=== PATIENT | female | born 1970 | race Caucasian/White ===

== ENCOUNTER → 2020-04-27 | Outpatient (CLI) | payer OTHER ==
[2020-04-27 12:42] VITALS: BP 97/65; PULSE 93; RESP 16
--- NOTE | 2020-04-28 14:39 | P.PAINCN ---
History of Present Illness - Reason for Consult Consult date: 04/27/20 - Chief Complaint Neck pain, bilateral hand numbness - History of Present Illness Mary is a 49-year-old female who presents to the [facility] pain clinic as a new patient with a chief complaint of neck pain and numbness and tingling in her arms bilaterally. She's noted the symptoms for about one year and had been progressing. She does not recall a mechanism of injury. She states any activity with her arms causes them to go numb from her shoulder all the way down to her hands and no specific pattern. She also has endorsed some gait disturbances over the past couple months not severe but noticeable. She has not been evaluated by another pain physician or surgeon for this issue. She has complaints of neck pain as well with rotation both left and right and with extension and flexion. She states that flexion or extension can elicit numbness and tingling down the respective arm. She been having difficulty with sleep waking up in the middle night with numbness in one or both arms. VAS varies from 2-8 out of 10 in severity depending on activity level. She describes it as a frequent with varying intensity throbbing, aching, sharp pain in her neck with numbness tingling and burning down her arms bilaterally. Any activity makes it worse or as rest makes it better. She's had difficulty with ADLs, unable to brush her teeth or do her hair or put makeup on without her arm going numb. She denies any bowel or bladder incontinence. Review of Systems Review of Systems 1. Constitutional: No chills , no fever , no night sweats , no change of appetite, no lethargy 2. Ears: No ear ache, no ear discharge , no change in hearing 3. Nose, Mouth ,Throat; No bleeding gums, no sore throat , no epistaxis , no hoarseness , no voice change 4. Cardiovascular: Denies chest pain, no palpitation , no paroxysmal nocturnal dyspnea , no leg edema 5. Respiratory: Denies cough , no dyspnea , no hemoptysis , no sleep apnea, no wheezing 6. Gastrointestinal: No abdominal pain , no bloating , no change in bowel habits , no coffee-ground emesis , No melena , no jaundice , no nausea , no vomiting 7. Genitourinary: No hematuria , no discharge 8. Musculoskeletal: As per HPI 9. Neurological: No ataxia , no aphasia ,no balance difficulties, no change in visions , no change in speech , no tremor . 10. Psychatric: depression , no suicidal ideation, 11. Hematologic: No easy bleeding, no easy brusing. 12. Integumentary: No brttle nails, no change hair , no hirsutism no depigmentation , no foot/leg ulcers . Medications and Allergies Home Medications Medication Instructions Recorded Confirmed Type ARIPiprazole [Abilify] 5 mg PO HS 04/27/20 04/27/20 History Bisacodyl 5 mg PO DAILY 04/27/20 04/27/20 History Col-Rite 04/27/20 History Cyclobenzaprine [Flexeril] 5 mg PO BID 04/27/20 04/27/20 History Dicyclomine [Bentyl] 10 mg PO BID 04/27/20 04/27/20 History Estradiol 0.5 mg PO DAILY 04/27/20 04/27/20 History Folic Acid 1 mg PO DAILY 04/27/20 04/27/20 History Gabapentin [Neurontin] 300 mg PO TID 04/27/20 04/27/20 History Ibuprofen [Motrin] 600 mg PO Q8HR PRN 04/27/20 04/27/20 History Lactulose 20 gm PO DAILY 04/27/20 04/27/20 History Levothyroxine Sodium [Synthroid] 75 mcg PO DAILY 04/27/20 04/27/20 History Omeprazole [PriLOSEC] 20 mg PO AC-BID 04/27/20 04/27/20 History Topiramate 50 mg PO DAILY 04/27/20 04/27/20 History buPROPion SR [Wellbutrin Sr] 100 mg PO TID 04/27/20 04/27/20 History lamoTRIgine 200 mg PO DAILY 04/27/20 04/27/20 History medroxyPROGESTERone [Provera] 2.5 mg PO DAILY 04/27/20 04/27/20 History traZODone HCL 150 mg PO HS 04/27/20 04/27/20 History Allergies Allergy/AdvReac Type Severity Reaction Status Date / Time bee venom protein (honey bee) Allergy Anaphylaxis Verified 04/27/20 12:25 methylphenidate Allergy Rash/Hives Verified 04/27/20 12:23 [From Ritalin] Physical Exam Vitals: Intake and Output 04/26/20 04/27/20 04/27/20 22:59 06:59 14:59 Other: Weight 55.792 kg Gen: WDWN, AAOx3, NAD HEENT: NCAT, EOMI, hearing grossly normal Pulm: resp unlabored Cvs: RRR, no peripheral edema Neck: supple, trachea midline ROM in flexion cervical spine: Limited secondary to pain ROM in extension cervical spine: Omitted secondary to pain Cervical paravertebral tenderness: Mild tenderness to palpation bilateral cervical spine Cervical Facet tenderness: + Spurling's: Positive bilateral with compression + Blackwood on the right ROM in flexion lumbar spine: Preserved flexion ROM in extension lumbar spine: Preserved extension Lumbar paravertebral tenderness: Negative Facet loading: + Bilateral SI joint tenderness: Negative Dewayne's test: negative Straight leg raise: negative Neuro: Muscle strength in upper or lower extremity's are preserved 5 out of 5 in his tricep, bicep deltoid, wrist flexion and extension. Quadriceps dorsiflexion plantarflexion are preserved in the lower extremity's. Reflexes are 1 at the brachioradialis and biceps. 1+ bilateral patella. Psychiatric: Appropriate mood and affect, alexandre signs negative Gait: Normal gait, patient transitions easily, no assist device required. Results Results: MRI cervical spine: 1. Foraminal disc herniations bilaterally at C7-T1 as well as facet hypertrophy and arthropathy. Leads to moderate to severe bilateral neural foraminal narrowing. 2. Small disc herniation is noted at C2-C3, C3-C4. No neural foraminal stenosis or spinal canal stenosis noted at that level. 3. Degenerative disc disease at C4 5. 4. Altered level malalignment with grade 1 anterior listhesis at C3-C4 and retrolisthesis at C5-C6. Assessment and Plan Assessment: 1. Cervical spondylosis with myelopathy 2. Cervical degenerative disc disease 3. Cervical anteriolisthesis at C3-C4 Plan: 1. Medication: No medications prescribed today. 2. Investigation: MRI cervical spine reviewed in detail with patient. All questions answered and diagnosis discussed in detail as well as treatment options. 3. Intervention: We discussed performing cervical epidural steroid injections targeting the C7-T1 interspace where her pathology is most severe. Discussed risks and benefits of the procedure in detail which include but not limited to infection, hematoma the epidural space, and increased pain. 4. Disposition: Patient return to clinic for cervical epidural steroid injection. I recommend patient have 2 as she will undergo physical therapy as well. I also referred her to Dr. Isaias Stratton for evaluation surgical recommendations. I discussed with her that she likely will require surgical decompression if she is myelopathic. I also provided her with a prescription for soft collar to wear at night to help maintain traction while sleeping. Time with Patient: Greater than 30 PQRS Measure Charge Sheet Home Medications: Ambulatory Orders ARIPiprazole [Abilify] 5 mg PO HS 04/27/20 Bisacodyl 5 mg PO DAILY 04/27/20 Col-Rite 04/27/20 Cyclobenzaprine [Flexeril] 5 mg PO BID 04/27/20 Dicyclomine [Bentyl] 10 mg PO BID 04/27/20 Estradiol 0.5 mg PO DAILY 04/27/20 Folic Acid 1 mg PO DAILY 04/27/20 Gabapentin [Neurontin] 300 mg PO TID 04/27/20 Ibuprofen [Motrin] 600 mg PO Q8HR PRN 04/27/20 Lactulose 20 gm PO DAILY 04/27/20 Levothyroxine Sodium [Synthroid] 75 mcg PO DAILY 04/27/20 Omeprazole [PriLOSEC] 20 mg PO AC-BID 04/27/20 Topiramate 50 mg PO DAILY 04/27/20 buPROPion SR [Wellbutrin Sr] 100 mg PO TID 04/27/20 lamoTRIgine 200 mg PO DAILY 04/27/20 medroxyPROGESTERone [Provera] 2.5 mg PO DAILY 04/27/20 traZODone HCL 150 mg PO HS 04/27/20
== END | disposition home or self-care (01) ==
LOC: PNWHC3 12:08
PROVIDERS: ATTEND Anesthesiology
DX: M43.12 Spondylolisthesis, cervical region (principal); M50.00 Cervical disc disorder with myelopathy, unspecified cervical region; M47.12 Other spondylosis with myelopathy, cervical region; Z79.890 Hormone replacement therapy; Z79.1 Long term (current) use of non-steroidal anti-inflammatories (NSAID); Z79.899 Other long term (current) drug therapy; Z91.030 Bee allergy status; Z88.8 Allergy status to other drugs, medicaments and biological substances
CPT/HCPCS: 99211

== ENCOUNTER 2020-05-19 07:04 | Day surgery (SDC) | payer OTHER ==
[2020-05-17 14:14] VITALS: BMI 22.6
[~2020-05-19 07:04] MED LIST: LACTATED RINGERS 1,000 ML IV SCH
[2020-05-19 07:27] VITALS: RESP 16; TEMP 96.9
[2020-05-19] MEDS ORDERED: LIDOCAINE 1% (10MG/ML) FOR IV START INTRADERMA ONE (07:28)
[2020-05-19] MEDS ORDERED: DEXAMETHASONE SOD PHOSPHATE 10 MG/ML 1 ML VIAL ONE (08:09)
[2020-05-19] MEDS ORDERED: MIDAZOLAM 2 MG/2 ML VIAL ONE (08:09)
[2020-05-19] MEDS ORDERED: fentaNYL (PF) 50 MCG/ML 2 ML AMP ONE (08:09)
[2020-05-19] MEDS ORDERED: IOPAMIDOL M200 10 ML VIAL ONE (08:09)
--- NOTE | 2020-05-19 08:28 | P.PCN ---
Date of Procedure: 05/19/20 Procedure(s) Performed: Diagnosis: Cervical radiculopathy Cervical degenerative disc disease POSTOPERATIVE DIAGNOSIS: Diagnoses: Cervical radiculopathy Cervical degenerative disc disease PROCEDURE Cervical Epidural steroid injection under fluoroscopic guidance at the C7-T1 interspace using right paramedian approach Cervical epidurogram ANESTHESIA: Local with 1% lidocaine 3 ml and IV sedation with Versed and fentanyl, sedation time 8 minutes Fluoroscopy was used for the procedure and images were saved in the radiology portion of the chart. EBL: Minimal PROCEDURE INDICATION: The patient presents with cervical radicular symptoms unresponsive to conservative treatment. This is the first cervical epidural steroid injection. PROCEDURE DESCRIPTION / TECHNIQUE: The patient was seen and identified in the preoperative area. Risks, benefits, complications including but not limited to infections ,bleeding ,allergic reaction to the medications ,nerve damage and incomplete pain relief, and alternatives were discussed with the patient. The patient agreed to proceed with the procedure and signed the consent. IV was started, and vital signs were stable. Patient was taken to the OR and time out was completed. The patient was placed in the prone position on procedure table and a pillow was placed under the chest area. The cervical area was prepped and draped in the usual sterile fashion. Conscious sedation was used during the procedure to decrease patients anxiety. Vital signs was monitored during the entire procedure. Using anterior-posterior fluoroscopy, the C7-T1 interlaminar space was identified and the skin over this site was marked and then infiltrated with 1% lidocaine subcutaneously. Subsequently, a 20-gauge Tuohy epidural needle was inserted and advanced toward the epidural space using the loss of resistance technique and guided by AP and 50 oblique fluoroscopy. The correct needle position in the epidural space was verified. After negative aspiration for blood and CSF and in the absence of paresthesias, Isovue 200 2 mL's was injected under live fluoroscopy with good epidural spread. After negative aspiration, a 5 ml mixture containing 10 mg of dexamethasone, 3 mL of preservative free normal saline and 1 mL of 1% lidocaine was injected. Needle was withdrawn intact, skin was cleansed, and bandages were applied. COMPLICATIONS: None DISPOSITION / PLANS: The patient was placed in a supine position and transferred to the recovery area in a stable condition for observation. There was no evidence of lower extremity motor or sensory deficit after the procedure. Patient was discharged from the recovery room after meeting discharge criteria. Home discharge instructions were given to the patient by the staff. The patient will be scheduled a repeat procedure in 4 weeks.
[2020-05-19 08:42] VITALS: PULSE 74
[2020-05-19 09:01] VITALS: BP 105/72
--- NOTE | 2020-05-19 14:36 | FL ---
Fluoroscopy HISTORY: Pain 9 seconds fluoroscopy time supplied to the referring clinician. 3 intraoperative C-arm images docume nt the procedure. See dictated report from anesthesia.
== END 2020-05-19 09:02 | disposition home or self-care (01) ==
LOC: ORPAIN 07:04
PROVIDERS: ATTEND Anesthesiology
DX: M50.10 Cervical disc disorder with radiculopathy, unspecified cervical region (principal); Z88.8 Allergy status to other drugs, medicaments and biological substances
CPT/HCPCS: 81025; 62321; J2250; J1100; J3010; Q9966

== ENCOUNTER 2020-06-16 07:52 | Day surgery (SDC) | payer OTHER ==
[2020-06-14 11:25] VITALS: BMI 22.6
[2020-06-16 08:14] VITALS: TEMP 99
[2020-06-16] MEDS ORDERED: DEXAMETHASONE SOD PHOSPHATE 10 MG/ML 1 ML VIAL ONE (08:42)
[2020-06-16] MEDS ORDERED: fentaNYL (PF) 50 MCG/ML 2 ML AMP ONE (08:42)
[2020-06-16] MEDS ORDERED: IOPAMIDOL M200 10 ML VIAL ONE (08:42)
[2020-06-16] MEDS ORDERED: MIDAZOLAM 2 MG/2 ML VIAL ONE (08:42)
--- NOTE | 2020-06-16 09:00 | P.PCN ---
Date of Procedure: 06/16/20 Procedure(s) Performed: Diagnosis: Cervical radiculopathy Cervical degenerative disc disease POSTOPERATIVE DIAGNOSIS: Diagnoses: Cervical radiculopathy Cervical degenerative disc disease PROCEDURE Cervical Epidural steroid injection under fluoroscopic guidance at the C7-T1 interspace using right paramedian approach Cervical epidurogram ANESTHESIA: Local with 1% lidocaine 3 ml and IV sedation with Versed and fentanyl, sedation time 10 minutes Fluoroscopy was used for the procedure and images were saved in the radiology portion of the chart. EBL: Minimal PROCEDURE INDICATION: The patient presents with cervical radicular symptoms unresponsive to conservative treatment. This is the second cervical epidural steroid injection. PROCEDURE DESCRIPTION / TECHNIQUE: The patient was seen and identified in the preoperative area. Risks, benefits, complications including but not limited to infections ,bleeding ,allergic reaction to the medications ,nerve damage and incomplete pain relief, and alternatives were discussed with the patient. The patient agreed to proceed with the procedure and signed the consent. IV was started, and vital signs were stable. Patient was taken to the OR and time out was completed. The patient was placed in the prone position on procedure table and a pillow was placed under the chest area. The cervical area was prepped and draped in the usual sterile fashion. Conscious sedation was used during the procedure to decrease patients anxiety. Vital signs was monitored during the entire procedure. Using anterior-posterior fluoroscopy, the C7-T1 interlaminar space was identified and the skin over this site was marked and then infiltrated with 1% l idocaine subcutaneously. Subsequently, a 20-gauge Tuohy epidural needle was inserted and advanced toward the epidural space using the loss of resistance technique and guided by AP and 50 oblique fluoroscopy. The correct needle position in the epidural space was verified. After negative aspiration for blood and CSF and in the absence of paresthesias, Isovue 200 2 mL's was injected under live fluoroscopy with good epidural spread. After negative aspiration, a 5 ml mixture containing 10 mg of dexamethasone, 3 mL of preservative free normal saline and 1 mL of 1% lidocaine was injected. Needle was withdrawn intact, skin was cleansed, and bandages were applied. COMPLICATIONS: None DISPOSITION / PLANS: The patient was placed in a supine position and transferred to the recovery area in a stable condition for observation. There was no evidence of lower extremity motor or sensory deficit after the procedure. Patient was discharged from the recovery room after meeting discharge criteria. Home discharge instructions were given to the patient by the staff. The patient will be scheduled a follow-up in the clinic in 4 weeks.
[2020-06-16] MEDS ORDERED: IV FLUID CONTINUATION 600 ML IV ONE (09:02)
[2020-06-16 09:16] VITALS: BP 117/77; PULSE 68; RESP 16
--- NOTE | 2020-06-16 15:04 | FL ---
EXAMINATION TYPE: FL guided pain mgmt statistic DATE OF EXAM: 06/16/2020 CLINICAL HISTORY: Cervical pain injection TECHNIQUE: Fluoroscopy. COMPARISON: None. FINDINGS: Fluoroscopic guidance was provided during procedure performed by Dr. Tse. A total of 5 se conds of fluoroscopic time was utilized during the procedure and 3 spot images was acquired. Please s ee operative report for additional details. IMPRESSION: As Above.
== END 2020-06-16 09:37 | disposition home or self-care (01) ==
LOC: ORPAIN 07:52
PROVIDERS: ATTEND Anesthesiology
DX: M50.10 Cervical disc disorder with radiculopathy, unspecified cervical region (principal); Z88.8 Allergy status to other drugs, medicaments and biological substances
CPT/HCPCS: 81025; 62321; J2250; J1100; J3010; Q9966; 99152

== ENCOUNTER → 2020-07-06 | Outpatient (CLI) | payer OTHER ==
[2020-07-06 10:08] VITALS: BP 113/81; PULSE 78; RESP 16; TEMP 98.1
--- NOTE | 2020-07-06 10:35 | P.PAINPG ---
Subjective Progress Note Date: 07/06/20 Mary is a 49-year-old female who presents to the [facility] pain clinic as a follow up for neck pain and numbness and tingling in her arms bilaterally. At her initial visit, we felt that her pain could be mediated from by cervical canal stenosis with nerve root impingement. We performed cervical ILESI C7-T1 x2 on 05/19 and 06/16/2020. We also referred her to see Dr. Isaias Stratton as well as PT. We were concerned that she was having myelopathy hence the surgical referral. She is here for follow up today. Patient says that her recent cervical epidural steroid injections were not very helpful. They only gave her about 10% relief. Her chief complaint is neck pain with occasional numbness and tingling in her arms bilaterally. However at this visit she is more focused on the fact that she is having neck pain stiffness and pain in her mid back on the right side. She does notice that she has some weakness in her arms. She is still scheduled to see neurosurgery and has an EMG scheduled for next week. She is currently doing physical therapy as well as she thinks is actually providing some benefit for her. Pain is currently an 8 out of 10. Described as intense throbbing aching and sharp with numbness and pain down her bilateral arms. Any activity makes it worse and rest makes it better She denies any bowel or bladder incontinence. Mostly her symptomology is described as stiffness and pain in the right cervical and thoracic musculature Review of Systems Review of Systems 1. Constitutional: No chills , no fever , no night sweats , no change of appetite, no lethargy 2. Ears: No ear ache, no ear discharge , no change in hearing 3. Nose, Mouth ,Throat; No bleeding gums, no sore throat , no epistaxis , no hoarseness , no voice change 4. Cardiovascular: Denies chest pain, no palpitation , no paroxysmal nocturnal dyspnea , no leg edema 5. Respiratory: Denies cough , no dyspnea , no hemoptysis , no sleep apnea, no wheezing 6. Gastrointestinal: No abdominal pain , no bloating , no change in bowel habits , no coffee-ground emesis , No melena , no jaundice , no nausea , no vomiting 7. Genitourinary: No hematuria , no discharge 8. Musculoskeletal: As per HPI 9. Neurological: No ataxia , no aphasia ,no balance difficulties, no change in visions , no change in speech , no tremor . 10. Psychatric: depression , no suicidal ideation, Gen: WDWN, AAOx3, NAD HEENT: NCAT, EOMI, hearing grossly normal Pulm: resp unlabored Cvs: RRR, no peripheral edema Neck: supple, trachea midline ROM in flexion cervical spine: Limited secondary to pain ROM in extension cervical spine: Omitted secondary to pain Cervical paravertebral tenderness: Significant tenderness and multiple trigger points of the right cervical paraspinal musculature, rhomboids, trapezius, and thoracic paraspinal muscles with radiation. Cervical Facet tenderness: + Spurling's: Positive bilateral with compression + Blackwood on the right Neuro: Muscle strength in upper or lower extremity's are preserved 5 out of 5 in his tricep, bicep deltoid, wrist flexion and extension. Quadriceps dorsiflexion plantarflexion are preserved in the lower extremity's. Reflexes are 1 at the brachioradialis and biceps. 1+ bilateral patella. Psychiatric: Appropriate mood and affect, alexandre signs negative Gait: Normal gait, patient transitions easily, no assist device required. Results Results: MRI cervical spine: 1. Foraminal disc herniations bilaterally at C7-T1 as well as facet hypertrophy and arthropathy. Leads to moderate to severe bilateral neural foraminal narrowing. 2. Small disc herniation is noted at C2-C3, C3-C4. No neural foraminal stenosis or spinal canal stenosis noted at that level. 3. Degenerative disc disease at C4 5. 4. Altered level malalignment with grade 1 anterior listhesis at C3-C4 and retrolisthesis at C5-C6. Assessment and Plan Assessment: 1. Cervical spondylosis with myelopathy 2. Cervical degenerative disc disease 3. Cervical anteriolisthesis at C3-C4 4. Cervical myofasical pain Plan: 1. Medication: No medications prescribed today. 2. Investigation: MRI cervical spine reviewed in detail with patient. All questions answered and diagnosis discussed in detail as well as treatment options. 3. Intervention: We will perform right-sided trigger point injections to cervical paraspinals, rhomboids, trapezius, thoracic paraspinal muscles. She does have noted trigger points on her physical exam with radiation upon pa lpation. If these do not work we can consider cervical medial branch workup in the future, however educated the patient given her MRI findings and symptoms this might not be as helpful. 4. Disposition: Patient will return for trigger point injections the right side as stated above. She is continuing to do physical therapy as well. I refilled her gabapentin as well today. She will see neurosurgery and have her EMG. She is continuing to wear her soft collar at night which is helping. I also educated her that she can take her Flexeril 10 mg at night rather than 5 and maybe this might provide some benefit. PQRS Measure Charge Sheet Measure #226: Tobacco Use: Screen & Cessation Intervention: Pt not a tobacco user Measure #47: Advance Care Plan: Advance care planning discussed & documented, pt chose/unable to give Measure #131: Pain Assessment & Follow-up: Pain positive & plan documented, F ollow-up scheduled Measure #431: Unhealthy Alcohol Use Preventative Care & Scrn: Patient not identified as an unhealthy alcohol user PQRS Narrative: Smoking Status Current every day smoker Hx Alcohol Use (MH) Yes: IN THE PAST Home Medications: Ambulatory Orders ARIPiprazole [Abilify] 10 mg PO HS 04/27/20 Bisacodyl 5 mg PO DAILY 04/27/20 Cyclobenzaprine [Flexeril] 5 mg PO BID 04/27/20 Dicyclomine [Bentyl] 10 mg PO BID 04/27/20 Estradiol 0.5 mg PO DAILY 04/27/20 Folic Acid 1 mg PO DAILY 04/27/20 Ibuprofen [Motrin] 600 mg PO Q8HR PRN 04/27/20 Lactulose 20 gm PO DAILY 04/27/20 Levothyroxine Sodium [Synthroid] 75 mcg PO DAILY 04/27/20 Omeprazole [PriLOSEC] 20 mg PO AC-BID 04/27/20 Topiramate 50 mg PO DAILY 04/27/20 buPROPion SR [Wellbutrin Sr] 150 mg PO TID 04/27/20 lamoTRIgine 200 mg PO DAILY 04/27/20 medroxyPROGESTERone [Provera] 2.5 mg PO DAILY 04/27/20 traZODone HCL 150 mg PO HS 04/27/20 Docusate [Colace] 100 mg PO DAILY 05/17/20 Gabapentin [Neurontin] 300 mg PO TID #90 cap 07/06/20 Controlled Substance Measures - Controlled Substance Measures Is patient prescribed a controlled substance at discharge?: No
== END | disposition home or self-care (01) ==
LOC: PNWHC3 09:45
PROVIDERS: ATTEND Anesthesiology
DX: M43.12 Spondylolisthesis, cervical region (principal); M50.021 Cervical disc disorder at C4-C5 level with myelopathy; M47.12 Other spondylosis with myelopathy, cervical region; M79.18 Myalgia, other site; F17.200 Nicotine dependence, unspecified, uncomplicated; Z79.890 Hormone replacement therapy; Z79.1 Long term (current) use of non-steroidal anti-inflammatories (NSAID); Z79.899 Other long term (current) drug therapy
CPT/HCPCS: 99211

== ENCOUNTER → 2020-09-07 | Outpatient (CLI) | payer OTHER ==
[2020-09-07 11:42] VITALS: BP 108/74; PULSE 74; RESP 18; TEMP 98.1
--- NOTE | 2020-09-07 12:24 | P.PN ---
Subjective Progress Note Date: 09/07/20 Assessment this is a 50 years old female with a chronic history of severe neck pain with radiation to the upper extremity bilaterally associated with numbness and tingling sensation, she is diagnosed with cervical degenerative disc disease , cervical foraminal stenosis, cervical herniated disc disease, cervical spondylosis with cervical facet arthropathy, patient had cervical epidural steroid injections 2 , she had no benefit from it, and she is continued to do physical therapy with minimal improvement, she had no motor or sensory deficit she had no fever or night sweats, no change in the bowel movement or urination, she is currently on Neurontin 300 mg 3 times a day, she had some benefit from this medication and she has no side effect. Objective - Vital Signs Vital signs: Vital Signs Temp 98.1 F 09/07/20 11:38 Pulse 74 09/07/20 11:38 Resp 18 09/07/20 11:38 BP 108/74 09/07/20 11:38 Pulse Ox 99 09/07/20 11:38 - Exam Physical Examinations : -Constitutiona : Cooperative , not in acute distress . -HEENT : nech : supple , no Lymphadenopathy , normal thyroid size . : eyes : no ptosis , no icterus, no photophobia . - neurologic : Cranial nerve II to XII intact , no focal neurological deffecit . -psychatric : alert , oriented X 3 , appropriate affect , intact judgment and insight . -Lymphatic : no Lymphadenopathy . - musculoskeltal : Cervical Spine motor stregnth in the deltoid and biceps, normal right side , normal Left side motor stregnth biceps and the wrist extensors normal right side ,normal left side . motor stregnth in the triceps muscle . normal Right side , normal Left side deep tendon reflexes normal at the biceps , normal at Brachioradialis , normal at triceps. cervical facet loading test= Positive Bilaterally Spurling test= positive bilaterally. Neck distraction test= positive bilaterally. Martin sign= positive bilaterally. Lumber spine moter stegnth lower extremities ,thigh and legs 5/5 Right side , 5/5 Left side Assessment and Plan Plan: Assessment and plan= 1-cervical disc herniation. 2-cervical foraminal stenosis. 3-cervical degenerative disc disease. 4-cervical spondylosis or cervical facet arthropathy without myelopathy. Patient had no benefit from cervical epidural steroid injections 2. Patient could be good candidate for diagnostic medial branch block cervical area at C4 ,C 5 , C 6 and possible RFA She is referred for evaluation by spine surgeon Prescriptions refilled for Neurontin 300 mg 3 times a day dispense 90 with 2 refills. - PQRS measures = - Patient's medications are documented in the chart. -Tobacco use is negative and counseling.Given. -Patient's has not received pneumococcal vaccine. -Advanced care planning discussed, patient not eligible. -Opiate contract signed. -Pain positive and follow-up visit/procedure is scheduled. -Patient's blood pressure measured [ 108/74 ] , and documented in the record ,and patient will follow up with the primary care. -Patient's weight was measured and body mass index [ 22] within the normal limits and counseling was done. and patient instructed to follow-up with the primary care physician. -Patient was not identified as an unhealthy alcohol user Time with Patient: Less than 30
== END | disposition home or self-care (01) ==
LOC: PNWHC3 11:13
PROVIDERS: ATTEND Specialist
DX: M48.02 Spinal stenosis, cervical region (principal); M50.20 Other cervical disc displacement, unspecified cervical region; M50.30 Other cervical disc degeneration, unspecified cervical region; M47.812 Spondylosis without myelopathy or radiculopathy, cervical region; Z79.891 Long term (current) use of opiate analgesic; Z79.899 Other long term (current) drug therapy
CPT/HCPCS: 99211

== ENCOUNTER → 2020-09-30 | Day surgery (SDC) | payer OTHER ==
[2020-09-29 08:54] VITALS: BMI 22.6
[~2020-09-30] MED LIST changes: +DEXAMETHASONE SOD PHOSPHATE 10 MG/ML 1 ML VIAL ONE; +IV FLUID CONTINUATION 600 ML IV ONE; +LACTATED RINGERS 1,000 ML IV ONE; +LIDOCAINE 1% (10MG/ML) FOR IV START INTRADERMA ONE; +MIDAZOLAM 2 MG/2 ML VIAL ONE; +ROPIVACAINE 5MG/ML 20ML VIAL ONE
[2020-09-30 07:33] VITALS: TEMP 97.6
--- NOTE | 2020-09-30 08:31 | P.PCN ---
Date of Procedure: 09/30/20 Surgeon: Beatriz Mcallister Pathology: none sent Condition: stable Disposition: PACU Description of Procedure: PREOPERATIVE DIAGNOSIS: Cervical Spondylosis with Facet Arthropathy,without myelopathy POSTOPERATIVE DIAGNOSIS: Cervical Spondylosis Facet Arthropathy, Without myelopathy PROCEDURES: Diagnostic Right C4,5,6 medial branchs block with fluoroscopic guidance ANESTHESIA: Local with 1% lidocaine; IV sedation by anesthesia services EBL: Minimal PROCEDURE INDICATION: The patient with neck pain secondary to cervical arthropathy unresponsive to more conservative treatments. PROCEDURE DESCRIPTION / TECHNIQUE: The patient was seen and identified in the preoperative area. Risks, benefits, complications, and alternatives were discussed with the patient, the patient agreed to proceed with the procedure and signed the consent. IV was started. Vital signs remained stable throughout the procedure. Patient was taken to the OR and time out was completed. The patient was placed in the supine position on the procedure table. . The cervical area was prepped with chloraprep and draped in the usual sterile fashion. Critical pause was taken. Vital signs were closely monitored during the procedure. Conscious sedation was used during the procedure to decrease patients anxiety. Using cross-table lateral fluoroscopy, the center of the trapezoid of C4 , C5,C6 was identified, marked, and localized with 1% lidocaine 1 ml at each level for skin and Sub Q infiltrations . Subsequently, a 25 G 3.5 inch spinal needle was advanced guided by fluoroscopy to the centroid of the trapezoid . Subsequently, 3 ml of preservative-free Bupivacaine 0.5% mixed with Dexamethasone 10 mg and 1 ml of the mixture was injected at each level after negative aspiration for blood and CSF. [place] were then removed intact . COMPLICATIONS: No acute complications. COMMENTS: X-ray images were saved to the C-arm machine DISPOSITION / PLANS: The patient was placed in a supine position and transferred to the recovery area in a stable condition for observation and was discharged from the recovery room after meeting discharge criteria. Home discharge instructions given to the patient by the staff. The patient was reexamined prior to discharge. The patient will schedule a follow up in the clinic in 2-4 weeks
--- NOTE | 2020-09-30 08:42 | FL ---
EXAMINATION TYPE: FL guided pain mgmt statistic DATE OF EXAM: 09/30/2020 HISTORY: Fluoroscopy time 8 seconds of fluoroscopy provided. IMPRESSION: 1. Fluoroscopy time.
[2020-09-30 08:43] VITALS: RESP 17
[2020-09-30 08:54] VITALS: BP 117/62; PULSE 60
== END ==
LOC: ORPAIN 06:58
PROVIDERS: ATTEND Anesthesiology
DX: M47.812 Spondylosis without myelopathy or radiculopathy, cervical region (principal); F17.210 Nicotine dependence, cigarettes, uncomplicated; M19.90 Unspecified osteoarthritis, unspecified site; E07.9 Disorder of thyroid, unspecified; K21.9 Gastro-esophageal reflux disease without esophagitis; Z88.8 Allergy status to other drugs, medicaments and biological substances; Z79.1 Long term (current) use of non-steroidal anti-inflammatories (NSAID); Z79.899 Other long term (current) drug therapy; Z79.890 Hormone replacement therapy
CPT/HCPCS: 81025; 64490; 64491; J2250; J1100; J2795

== ENCOUNTER → 2020-10-18 | Outpatient (CLI) | payer OTHER ==
--- NOTE | 2020-10-18 13:55 | CT ---
EXAMINATION TYPE: CT cervical spine wo con DATE OF EXAM: 10/18/2020 COMPARISON: Outside cervical spine x-ray October 10, 2020. Outside MRI cervical spine March 05, 2020 HISTORY: Cervicalgia CT DLP: 779.50 mGycm. Automated Exposure Control for Dose Reduction was Utilized. TECHNIQUE: CT scan of the cervical spine is obtained without contrast, axial images are obtained, sa gittal and coronal reformatted images are also reviewed. FINDINGS: Cervical spine is visualized in its entirety from C1 through upper thoracic levels, redemon strates reversal of normal cervical curvature centered at C4-C5 level. Prevertebral soft tissue franyd ins within normal limits. The C1-C2 articulation is within normal limits on the coronal images. Vert ebral body heights are maintained. There is grade 1 anterolisthesis of C3 on C4 redemonstrated and gr faith 1 retrolisthesis of C5 on C6 redemonstrated. Moderate disc space narrowing and anterior spurring C4-C5 level. Moderate to severe disc space narrowing and spurring C5-C6 level. Mild to moderate disc space narrowing and spurring C7-T1 level. Axial images show C2-C3 level to appear within normal limits Axial images at C3-C4 level show spondylolisthesis with right-sided uncovertebral facet degenerative change. Patent bilateral neural foramina. Axial images at C4-C5 level show tiny central disc protrusion mildly facing anterior thecal sac on im age 39, patent bilateral neural foramina. Axial images at C5-C6 level show spondylolisthesis with patent bilateral neural foramina and patent s carson canal. Axial images at C6-C7 level are within normal limits. Axial images at C7-T1 level show posterior spur disc complex mildly effacing anterior thecal sac and causing cumx-vd-fedniviw bilateral neural foraminal narrowing due to marginal spurring. Lung apices are clear. Thyroid gland is felt within normal limits. Some scattered prominent but subce ntimeter lymph nodes throughout the neck bilaterally are thought present. Correlate clinically. IMPRESSION: Reversal of normal cervical curvature with multilevel degenerative changes as detailed ab ove.
--- NOTE | 2020-10-18 13:57 | CT ---
EXAMINATION TYPE: CT thoracic spine wo con DATE OF EXAM: 10/18/2020 COMPARISON: None. HISTORY: Thoracic pain CT DLP: 494.90 mGycm Automated exposure control for dose reduction was used. FINDINGS: Coronal images show slight scoliotic curvature in the upper thoracic spine. Sagittal images show sati sfactory alignment. Vertebral body heights and disc space heights are maintained. There is mild multi level anterior and lateral spurring. Spinal canal is grossly preserved. There is broad-based posterio r disc herniation mildly effacing the anterior thecal sac at T6-T7 level sagittal image 25 correspond ing to axial image 51. Remainder thoracic levels show no large disc herniation. Visualized lungs are grossly clear. IMPRESSION: Slight scoliotic curvature with focal disc herniation T6-T7 level.
== END | disposition home or self-care (01) ==
LOC: RADCTMAIN 12:58
PROVIDERS: ATTEND Orthopaedic Surgery
DX: M51.24 Other intervertebral disc displacement, thoracic region (principal); M47.812 Spondylosis without myelopathy or radiculopathy, cervical region; M43.8X2 Other specified deforming dorsopathies, cervical region; M41.84 Other forms of scoliosis, thoracic region
CPT/HCPCS: 72125; 72128

== ENCOUNTER → 2020-11-02 | Outpatient (CLI) | payer OTHER ==
[2020-11-02 11:06] VITALS: BP 102/72; PULSE 81; RESP 16; TEMP 98
--- NOTE | 2020-11-03 11:03 | P.PN ---
Subjective Progress Note Date: 11/02/20 This is a follow-up visit for 50 years old female with a chronic history of severe neck pain with radiation to the upper extremity bilaterally associated with numbness and tingling sensation, she is diagnosed with cervical degenerative disc disease , cervical foraminal stenosis, cervical herniated disc disease, cervical spondylosis with cervical facet arthropathy, patient had cervical epidural steroid injections 2 , she had no benefit from it, and she is continued to do physical therapy with minimal improvement, she had no motor or sensory deficit she had no fever or night sweats, no change in the bowel movement or urination, she is currently on Neurontin 300 mg 3 times a day, she had some benefit from this medication and she has no side effect. A few weeks ago we have done diagnostic medial branch block cervical area on the right side C4, C5, C6 and she'll get good pain relief her pain improved significantly after the block gets more than 75% improvement of her neck Objective - Vital Signs Vital signs: Vital Signs Temp 98.0 F 11/02/20 10:57 Pulse 81 11/02/20 10:57 Resp 16 11/02/20 10:57 BP 102/72 11/02/20 10:57 Pulse Ox 98 11/02/20 10:57 - Exam -Constitutiona : Cooperative , not in acute distress . -HEENT : nech : supple , no Lymphadenopathy , normal thyroid size . : eyes : no ptosis , no icterus, no photophobia . - neurologic : Cranial nerve II to XII intact , no focal neurological deffecit . -psychatric : alert , oriented X 3 , appropriate affect , intact judgment and insight . -Lymphatic : no Lymphadenopathy . - musculoskeltal : Cervical Spine motor stregnth in the deltoid and biceps, normal right side , normal Left side motor stregnth biceps and the wrist extensors normal right side ,normal left side . motor stregnth in the triceps muscle . normal Right side , normal Left side deep tendon reflexes normal at the biceps , normal at Brachioradialis , normal at triceps. cervical facet loading test= Positive Bilaterally Spurling test= positive bilaterally. Neck distraction test= positive bilaterally. Martin sign= positive bilaterally. Lumber spine moter stegnth lower extremities ,thigh and legs 5/5 Right side , 5/5 Left side Assessment and Plan Plan: Assessment and plan= 1-cervical disc herniation. 2-cervical foraminal stenosis. 3-cervical degenerative disc disease. 4-cervical spondylosis or cervical facet arthropathy without myelopathy. Patient had no benefit from cervical epidural steroid injections 2. Patient had good results after diagnostic medial branch block cervical area at C4 ,C 5 , C 6 She'll be scheduled for repeat injection She is referred for evaluation by spine surgeon Prescriptions refilled for Neurontin 300 mg 3 times a day dispense 90 with 2 refills. - PQRS measures = - Patient's medications are documented in the chart. -Tobacco use is negative and counseling.Given. -Patient's has not received pneumococcal vaccine. -Advanced care planning discussed, patient not eligible. -Opiate contract signed. -Pain positive and follow-up visit/procedure is scheduled. -Patient's blood pressure measured [ 102/72 ] , and documented in the record ,and patient will follow up with the primary care. -Patient's weight was measured and body mass index [ 22] within the normal limits and counseling was done. and patient instructed to follow-up with the primary care physician. -Patient was not identified as an unhealthy alcohol user Time with Patient: Less than 30
== END | disposition home or self-care (01) ==
LOC: PNWHC3 10:34
PROVIDERS: ATTEND Specialist
DX: G89.29 Other chronic pain (principal); M48.02 Spinal stenosis, cervical region; M50.20 Other cervical disc displacement, unspecified cervical region; M50.30 Other cervical disc degeneration, unspecified cervical region; M47.812 Spondylosis without myelopathy or radiculopathy, cervical region; Z79.899 Other long term (current) drug therapy
CPT/HCPCS: 99211

== ENCOUNTER → 2020-11-30 | Outpatient (CLI) | payer OTHER ==
[2020-11-30 10:45] VITALS: BP 107/73; PULSE 85; RESP 18; TEMP 98.8
--- NOTE | 2020-11-30 11:00 | P.PN ---
Subjective Progress Note Date: 11/30/20 This is a follow-up visit for 50 years old female with a chronic history of severe neck pain with radiation to the upper extremity bilaterally associated with numbness and tingling sensation, she is diagnosed with cervical degenerative disc disease , cervical foraminal stenosis, cervical herniated disc disease, cervical spondylosis with cervical facet arthropathy, patient had cervical epidural steroid injections 2 , she had no benefit from it, and she is continued to do physical therapy with minimal improvement, she had no motor or sensory deficit she had no fever or night sweats, no change in the bowel movement or urination, she is currently on Neurontin 300 mg 3 times a day, she had some benefit from this medication and she has no side effect. A few weeks ago we have done diagnostic medial branch block cervical area on the right side C4, C5, C6 and she get good pain relief her pain improved significantly after the block gets more than 75% improvement of her neck, she is here today for medication refill Objective - Vital Signs Vital signs: Vital Signs Temp 98.8 F 11/30/20 10:40 Pulse 85 11/30/20 10:40 Resp 18 11/30/20 10:40 BP 107/73 11/30/20 10:40 Pulse Ox 99 11/30/20 10:40 - Exam -Constitutiona : Cooperative , not in acute distress . -HEENT : nech : supple , no Lymphadenopathy , normal thyroid size . : eyes : no ptosis , no icterus, no photophobia . - neurologic : Cranial nerve II to XII intact , no focal neurological deffecit . -psychatric : alert , oriented X 3 , appropriate affect , intact judgment and insight . -Lymphatic : no Lymphadenopathy . - musculoskeltal : Cervical Spine motor stregnth in the deltoid and biceps, normal right side , normal Left side motor stregnth biceps and the wrist extensors normal right side ,normal left side . motor stregnth in the triceps muscle . normal Right side , normal Left side deep tendon reflexes normal at the biceps , normal at Brachioradialis , normal at triceps. cervical facet loading test= Positive Bilaterally Spurling test= positive bilaterally. Neck distraction test= positive bilaterally. Martin sign= positive bilaterally. Lumber spine moter stegnth lower extremities ,thigh and legs 5/5 Right side , 5/5 Left side Assessment and Plan Plan: Assessment and plan= 1-cervical disc herniation. 2-cervical foraminal stenosis. 3-cervical degenerative disc disease. 4-cervical spondylosis or cervical facet arth ropathy without myelopathy. Patient had no benefit from cervical epidural steroid injections 2. Patient had good results after diagnostic medial branch block cervical area at C4 ,C 5 , C 6 She'll be scheduled for repeat injection Prescriptions refilled for Neurontin 300 mg 3 times a day dispense 90 with 1 refills. - PQRS measures = - Patient's medications are documented in the chart. -Tobacco use is negative and counseling.Given. -Patient's has not received pneumococcal vaccine. -Advanced care planning discussed, patient not eligible. -Opiate contract signed. -Pain positive and follow-up visit/procedure is scheduled. -Patient's blood pressure measured [ 107/73 ] , and documented in the record ,and patient will follow up with the primary care. -Patient's weight was measured and body mass index [ 23.2] within the normal limits and counseling was done. and patient instructed to follow-up with the primary care physician. -Patient was not identified as an unhealthy alcohol user Time with Patient: Less than 30 Time with Patient: Less than 30
== END | disposition home or self-care (01) ==
LOC: PNWHC3 10:34
PROVIDERS: ATTEND Specialist
DX: M48.02 Spinal stenosis, cervical region (principal); M50.30 Other cervical disc degeneration, unspecified cervical region; M50.20 Other cervical disc displacement, unspecified cervical region; M47.812 Spondylosis without myelopathy or radiculopathy, cervical region; Z79.899 Other long term (current) drug therapy
CPT/HCPCS: 99211

== ENCOUNTER → 2020-12-06 | Day surgery (SDC) | payer OTHER ==
[2020-12-05 08:39] VITALS: BMI 23.2
[~2020-12-06] MED LIST changes: +IOPAMIDOL M200 10 ML VIAL ONE; +IV FLUID CONTINUATION 1,000 ML IV ONE; -IV FLUID CONTINUATION 600 ML IV ONE; -LACTATED RINGERS 1,000 ML IV SCH; +fentaNYL (PF) 50 MCG/ML 2 ML AMP ONE
[2020-12-06 06:44] VITALS: RESP 16; TEMP 98.4
--- NOTE | 2020-12-06 07:17 | P.PCN ---
Date of Procedure: 12/06/20 Description of Procedure: PREOPERATIVE DIAGNOSIS: Cervical Spondylosis with Facet Arthropathy,without myelopathy POSTOPERATIVE DIAGNOSIS: Cervical Spondylosis Facet Arthropathy, Without myelopathy PROCEDURES: Diagnostic Right C4,5,6 medial branchs block with fluoroscopic guidance #2 ANESTHESIA: Local with 1% lidocaine; IV sedation EBL: Minimal PROCEDURE INDICATION: The patient with neck pain secondary to cervical arthropathy unresponsive to more conservative treatments. PROCEDURE DESCRIPTION / TECHNIQUE: The patient was seen and identified in the preoperative area. Risks, benefits, complications, and alternatives were discussed with the patient, the patient agreed to proceed with the procedure and signed the consent. IV was started. Vital signs remained stable throughout the procedure. Patient was taken to the OR and time out was completed. The patient was placed in the supine position on the procedure table. . The cervical area was prepped with chloraprep and draped in the usual sterile fashion. Critical pause was taken. Vital signs were closely monitored during the procedure. Conscious sedation was used during the procedure to decrease patients anxiety. Using cross-table lateral fluoroscopy, the center of the trapezoid of C4 , C5,C6 was identified, marked, and localized with 1% lidocaine 1 ml at each level for skin and Sub Q infiltrations . Subsequently, a 25 G 3.5 inch spinal needle was advanced guided by fluoroscopy to the centroid of the trapezoid . Subsequently, 3 ml of preservative-free Bupivacaine 0.5% mixed with Dexamethasone 10 mg and 1 ml of the mixture was injected at each level after negative aspiration for blood and CSF. [place] were then removed intact . COMPLICATIONS: No acute complications. COMMENTS: X-ray images were saved to the C-arm machine DISPOSITION / PLANS: The patient was placed in a supine position and transferred to the recovery area in a stable condition for observation and was discharged from the recovery room after meeting discharge criteria. Home discharge instructions given to the patient by the staff. The patient was reexamined prior to discharge. The patient will schedule a follow up in the clinic in 2-4 weeks
[2020-12-06 07:44] VITALS: BP 102/63; PULSE 71
--- NOTE | 2020-12-06 08:59 | FL ---
EXAMINATION TYPE: FL guided pain mgmt statistic DATE OF EXAM: 12/06/2020 HISTORY: Fluoroscopy time 11 seconds of fluoroscopy provided. IMPRESSION: 1. Fluoroscopy time.
== END ==
LOC: ORPAIN 06:00
PROVIDERS: ATTEND Anesthesiology
DX: M47.812 Spondylosis without myelopathy or radiculopathy, cervical region (principal); Z88.8 Allergy status to other drugs, medicaments and biological substances
CPT/HCPCS: 81025; 64490; 64491; J2250; J1100; J3010; Q9966; J2795; 99152

== ENCOUNTER → 2021-02-01 | Outpatient (CLI) | payer OTHER ==
[2021-02-01 10:52] VITALS: BP 105/69; PULSE 74; RESP 18; TEMP 97.9
--- NOTE | 2021-02-01 11:00 | P.PN ---
Subjective Progress Note Date: 02/01/21 This is a follow-up visit for this 50 years old female with a chronic history of severe neck pain with radiation to the upper extremity, associated with numbness and tingling sensation she is diagnosed with cervical degenerative disc disease and cervical spondylosis with cervical facet arthropathy, previously we have done cervical epidural steroid injection she has minimal benefit from it, and later on we did diagnostic medial branch block cervical area, she had some benefit from the first injection then the second diagnostic medial branch block she has no benefit, she reported that her pain was the same before and after the injection, Objective - Vital Signs Vital signs: Vital Signs Temp 97.9 F 02/01/21 10:35 Pulse 74 02/01/21 10:35 Resp 18 02/01/21 10:35 BP 105/69 02/01/21 10:35 Pulse Ox 74 L 02/01/21 10:35 - Exam -Constitutiona : Cooperative , not in acute distress . -HEENT : nech : supple , no Lymphadenopathy , normal th yroid size . : eyes : no ptosis , no icterus, no photophobia . - neurologic : Cranial nerve II to XII intact , no focal neurological deffecit . -psychatric : alert , oriented X 3 , appropriate affect , intact judgment and insight . -Lymphatic : no Lymphadenopathy . - musculoskeltal : Cervical Spine motor stregnth in the deltoid and biceps, normal right side , normal Left side motor stregnth biceps and the wrist extensors normal right side ,normal left side . motor stregnth in the triceps muscle . normal Right side , normal Left side deep tendon reflexes normal at the biceps , normal at Brachioradialis , normal at triceps. cervical facet loading test= Positive Bilaterally Spurling test= positive bilaterally. Neck distraction test= positive jovita aterally. Martin sign= positive bilaterally. Lumber spine moter stegnth lower extremities ,thigh and legs 5/5 Right side , 5/5 Left side Assessment and Plan Plan: Assessment and plan= 1-cervical disc herniation. 2-cervical foraminal stenosis. 3-cervical degenerative disc disease. 4-cervical spondylosis or cervical facet arthropathy without myelopathy. Patient had no benefit from cervical epidural steroid injections 2. Patient had negative results after the diagnostic medial branch block done recently Patient will follow up with spine surgeon for evaluation. Patient will continue to use Neurontin 300 mg 3 times a day prescription refill for 3 months was given - PQRS measures = - Patient's medications are documented in the chart. -Tobacco use is negative and counseling.Given. -Patient's has not received pneumococcal vaccine. -Advanced care planning discussed, patient not eligible. -Opiate contract signed. -Pain positive and follow-up visit/procedure is scheduled. -Patient's blood pressure measured [ 105/69 ] , and documented in the record ,and patient will follow up with the primary care. -Patient's weight was measured and body mass index [ 23.2] within the normal limits and counseling was done. and patient instructed to follow-up with the primary care physician. -Patient was not identified as an unhealthy alcohol user Time with Patient: Less than 30
== END ==
LOC: PNWHC3 10:31
PROVIDERS: ATTEND Specialist
DX: M47.812 Spondylosis without myelopathy or radiculopathy, cervical region (principal); M50.30 Other cervical disc degeneration, unspecified cervical region; M48.02 Spinal stenosis, cervical region; M50.20 Other cervical disc displacement, unspecified cervical region
CPT/HCPCS: 99211

== ENCOUNTER → 2021-04-24 | Outpatient (CLI) | payer OTHER ==
[2021-04-24 10:40] VITALS: BP 111/76; PULSE 75; RESP 18; TEMP 98.6
--- NOTE | 2021-04-24 11:16 | P.PN ---
Subjective Progress Note Date: 04/24/21 This is a follow-up visit for this 50 years old female with a chronic history of severe neck pain with radiation to the upper extremity, associated with numbness and tingling sensation ,she is diagnosed with cervical degenerative disc disease and cervical spondylosis with cervical facet arthropathy, previously we have done cervical epidural steroid injection she has minimal benefit from it, and later on we did diagnostic medial branch block cervical area, she had some benefit from the first injection then the second diagnostic medial branch block she has no benefit, she reported that her pain was the same before and after the injection, patient was referred to Dr. De La Vega and spine surgeon, and he recommended surgery, patient concerned about complication of the surgery, and she is currently on Neurontin 300 mg 3 times a day, she denies any side effects of the medication but continued to have severe numbness in her upper extremity Physical examination -Constitutiona : Cooperative , not in acute distress . -HEENT : nech : supple , no Lymphadenopathy , normal thyroid size . : eyes : no ptosis , no icterus, no photophobia . - neurologic : Cranial nerve II to XII intact , no focal neurological deffecit . -psychatric : alert , oriented X 3 , appropriate affect , intact judgment and insight . -Lymphatic : no Lymphadenopathy . - musculoskeltal : Cervical Spine motor stregnth in the deltoid and biceps, normal right side , normal Left side motor stregnth biceps and the wrist extensors normal right side ,normal left side . motor stregnth in the triceps muscle . normal Right side , normal Left side deep tendon reflexes normal at the biceps , normal at Brachioradialis , normal at triceps. cervical facet loading test= Positive Bilaterally Spurling test= positive bilaterally. Neck distraction test= positive bilaterally. Martin sign= positive bilaterally. Lumber spine moter stegnth lower extremities ,thigh and legs 5/5 Right side , 5/5 Left side Assessment and plan= 1-cervical disc herniation. 2-cervical foraminal stenosis. 3-cervical degenerative disc disease. 4-cervical spondylosis or cervical facet arthropathy without myelopathy. Patient had no benefit from cervical epidural steroid injections 2. Patient had negative results after the diagnostic medial branch block . Patient continue to to have numbness with the current dose of Neurontin 300 mg 3 times a day Patient could benefit from Lyrica 75 mg 3 times a day, (and if Lyrica did not approved by her insurance then we can increase Neurontin to 400 mg 3 times a day Follow-up in 3 months - PQRS measures = - Patient's medications are documented in the chart. -Tobacco use is negative and counseling.Given. -Patient's has not received pneumococcal vaccine. -Advanced care planning discussed, patient not eligible. -Opiate contract signed. -Pain positive and follow-up visit/procedure is scheduled. -Patient's blood pressure measured [ 105/76 ] , and documented in the record ,and patient will follow up with the primary care. -Patient's weight was measured and body mass index [ 23.2] within the normal limits and counseling was done. and patient instructed to follow-up with the primary care physician. -Patient was not identified as an unhealthy alcohol user Objective - Vital Signs Vital signs: Vital Signs Temp 98.6 F 04/24/21 10:37 Pulse 75 04/24/21 10:37 Resp 18 04/24/21 10:37 BP 111/76 04/24/21 10:37 Pulse Ox 98 04/24/21 10:37
== END ==
LOC: PNWHC3 10:29
PROVIDERS: ATTEND Specialist
DX: M50.20 Other cervical disc displacement, unspecified cervical region (principal); M48.02 Spinal stenosis, cervical region; M50.30 Other cervical disc degeneration, unspecified cervical region; M47.812 Spondylosis without myelopathy or radiculopathy, cervical region; F17.200 Nicotine dependence, unspecified, uncomplicated; Z91.030 Bee allergy status; Z88.8 Allergy status to other drugs, medicaments and biological substances
CPT/HCPCS: 80307; G0482; G0463; 99211; 99212

== ENCOUNTER → 2021-07-17 | Outpatient (CLI) | payer OTHER ==
--- NOTE | 2021-07-17 10:49 | P.PAINPG ---
Subjective Progress Note Date: 07/17/21 This is a follow-up visit for this 51 years old female with a chronic history of severe neck pain with radiation to the upper extremity, associated with numbness and tingling sensation ,she is diagnosed with cervical degenerative disc disease and cervical spondylosis with cervical facet arthropathy, previously we have done cervical epidural steroid injection she has minimal benefit from it, and later on we did diagnostic medial branch block cervical area, she had some benefit from the first injection then the second diagnostic medial branch block she has no benefit, she reported that her pain was the same before and after the injection, patient was referred to Dr. De La Vega and spine surgeon, and he recommended surgery, patient concerned about complication of the surgery. In her last visit we had changed her gabapentin from 300 3 times a day to 75 mg of Lyrica 3 times a day. Patient overall is doing alright, she mentions Lyrica is somewhat helpful but is not take away all of her pain. She also takes ibuprofen quite liberally. She has talked about neck surgery, however they want her to stop smoking for 4-6 weeks she has been quite difficult for her. She is interested in increasing the Lyrica and any other options that we might have. Physical examination -Constitutiona : Cooperative , not in acute distress . -HEENT : nech : supple , no Lymphadenopathy , normal thyroid size . : eyes : no ptosis , no icterus, no photophobia . - neurologic : Cranial nerve II to XII intact , no focal neurological deffecit . -psychatric : alert , oriented X 3 , appropriate affect , intact judgment and insight . -Lymphatic : no Lymphadenopathy . - musculoskeltal : Cervical Spine motor stregnth in the deltoid and biceps, normal right side , normal Left side motor stregnth biceps and the wrist extensors normal right side ,normal left side . motor stregnth in the triceps muscle . normal Right side , normal Left side deep tendon reflexes normal at the biceps , normal at Brachioradialis , normal at triceps. cervical facet loading test= Positive Bilaterally Spurling test= positive bilaterally. Neck distraction test= positive bilaterally. Martin sign= positive bilaterally. Lumber spine moter stegnth lower extremities ,thigh and legs 5/5 Right side , 5/5 Left side Assessment and plan= 1-cervical disc herniation. 2-cervical foraminal stenosis. 3-cervical degenerative disc disease. 4-cervical spondylosis or cervical facet arthropathy without myelopathy. Patient had no benefit from cervical epidural steroid injections 2. Patient had negative results after the diagnostic medial branch block . We have increased her Lyrica 150 mg twice a day. I also told her to stop taking her ibuprofen and to try Mobic 15 mg once a day. If the Mobic is not helpful, she can go back to her ibuprofen. Follow-up in 1 month I have spent 34 minutes on patient care today. The time was used to review the medical records including relevant urine studies and prescription history, review of the available imaging, evaluation and examination of the patient, coordination of care with the medical staff and if applicable referring physicians, as well as creation of the medical record. - PQRS measures = - Patient's medications are documented in the chart. -Tobacco use is negative and counseling.Given. -Patient's has not received pneumococcal vaccine. -Advanced care planning discussed, patient not eligible. -Opiate contract signed. -Pain positive and follow-up visit/procedure is scheduled. -Patient's blood pressure measured [ 105/76 ] , and documented in the record ,and patient will follow up with the primary care. -Patient's weight was measured and body mass index [ 23.2] within the normal limits and counseling was done. and patient instructed to follow-up with the primary care physician. PQRS Measure Charge Sheet PQRS Narrative: Smoking Status Current every day smoker Narcotic Agreement Date Signed 07/06/20 Pain Intensity [Neck] 8 Scale Used Numeric (1 - 10) Hx Alcohol Use (MH) Yes: IN THE PAST Home Medications: Ambulatory Orders Cyclobenzaprine [Flexeril] 10 mg PO BID 04/27/20 Dicyclomine [Bentyl] 10 mg PO BID PRN 04/27/20 Estradiol 0.5 mg PO DAILY 04/27/20 Folic Acid 1 mg PO DAILY 04/27/20 Ibuprofen [Motrin] 600 mg PO Q8HR PRN 04/27/20 Lactulose 20 gm PO DAILY 04/27/20 Levothyroxine Sodium [Synthroid] 75 mcg PO DAILY 04/27/20 Omeprazole [PriLOSEC] 20 mg PO AC-BID 04/27/20 lamoTRIgine 150 mg PO BID 04/27/20 medroxyPROGESTERone [Provera] 2.5 mg PO DAILY 04/27/20 Multivit with Calcium,Iron,Min [Women's Multivitamin] 1 each PO DAILY 10/19/20 buPROPion HCL [Wellbutrin XL] 400 mg PO DAILY 04/20/21 Venlafaxine HCl [Effexor] 75 mg PO TID 07/11/21 Meloxicam [Mobic] 15 mg PO DAILY 30 Days #30 tab 07/17/21 Pregabalin [Lyrica] 150 mg PO BID 30 Days #60 capsule 07/17/21 Controlled Substance Measures - Controlled Substance Measures Is patient prescribed a controlled substance at discharge?: Yes When asked, does pt state using other controlled substances?: No If prescribed controlled substance>3 days was MAPS reviewed?: Yes If Rx opioid, was Start Talking consent form obtained?: No If opioid is for acute pain is fill amount 7 days or less?: No Was information provided regarding opioid addiction?: No
[2021-07-17 10:56] VITALS: BP 115/79; PULSE 77; RESP 18; TEMP 98.1
== END | disposition home or self-care (01) ==
LOC: PNWHC3 10:31
PROVIDERS: ATTEND Anesthesiology
DX: M48.02 Spinal stenosis, cervical region (principal); M50.31 Other cervical disc degeneration, high cervical region; M47.892 Other spondylosis, cervical region; M46.92 Unspecified inflammatory spondylopathy, cervical region
CPT/HCPCS: 99211

== ENCOUNTER → 2021-08-14 | Outpatient (CLI) | payer OTHER ==
[2021-08-14 10:55] VITALS: BP 108/71; PULSE 81; RESP 16; TEMP 97.6
--- NOTE | 2021-08-14 10:55 | P.PN ---
Subjective Progress Note Date: 08/14/21 This is a follow-up visit for this 50 years old female with a chronic history of severe neck pain with radiation to the upper extremity, associated with numbness and tingling sensation ,she is diagnosed with cervical degenerative disc disease and cervical spondylosis with cervical facet arthropathy, previously we have done cervical epidural steroid injection she has minimal benefit from it, and later on we did diagnostic medial branch block cervical area, she had some benefit from the first injection then the second diagnostic medial branch block she has no benefit, she reported that her pain was the same before and after the injection, patient was referred to Dr. De La Vega and spine surgeon, and he recommended surgery, patient concerned about complication of the surgery, and she is currently on Lyrica 150 mg 2 times a day, and ibuprofen 600 mg 3 times a day when necessary she denies any side effects of the medication but continued to have severe numbness in her upper extremity Physical examination -Constitutiona : Cooperative , not in acute distress . -HEENT : nech : supple , no Lymphadenopathy , normal thyroid size . : eyes : no ptosis , no icterus, no photophobia . - neurologic : Cranial nerve II to XII intact , no focal neurological deffecit . -psychatric : alert , oriented X 3 , appropriate affect , intact judgment and insight . -Lymphatic : no Lymphadenopathy . - musculoskeltal : Cervical Spine motor stregnth in the deltoid and biceps, normal right side , normal Left side motor stregnth biceps and the wrist extensors normal right side ,normal left side . motor stregnth in the triceps muscle . normal Right side , normal Left side deep tendon reflexes normal at the biceps , normal at Brachioradialis , normal at triceps. cervical facet loading test= Positive Bilaterally Spurling test= positive bilaterally. Neck distraction test= positive bilaterally. Martin sign= positive bilaterally. Lumber spine moter stegnth lower extremities ,thigh and legs 5/5 Right side , 5/5 Left side Assessment and plan= 1-cervical disc herniation. 2-cervical foraminal stenosis. 3-cervical degenerative disc disease. 4-cervical spondylosis or cervical facet arthropathy without myelopathy. Patient had no benefit from cervical epidural steroid injections 2. Patient had negative results after the diagnostic medial branch block . Patient continue to to have numbness with the current dose of Neurontin 300 mg 3 times a day Patient could benefit from Lyrica 150 mg 2 times a day. Follow-up in 3 months - PQRS measures = - Patient's medications are documented in the chart. -Tobacco use is negative and counseling.Given. -Patient's has not received pneumococcal vaccine. -Advanced care planning discussed, patient not eligible. -Opiate contract signed. -Pain positive and follow-up visit/procedure is scheduled. -Patient's blood pressure measured [ 108/71 ] , and documented in the record ,and patient will follow up with the primary care. -Patient's weight was measured and body mass index [ 23.6] within the normal limits and counseling was done. and patient instructed to follow-up with the primary care physician. -Patient was not identified as an unhealthy alcohol user Objective - Vital Signs Vital signs: Intake & Output 08/13/21 08/14/21 08/14/21 18:59 06:59 18:59 Weight 56.699 kg
== END | disposition home or self-care (01) ==
LOC: PNWHC3 10:30
PROVIDERS: ATTEND Specialist
DX: M50.20 Other cervical disc displacement, unspecified cervical region (principal); M50.30 Other cervical disc degeneration, unspecified cervical region; M48.02 Spinal stenosis, cervical region
CPT/HCPCS: 99211

== ENCOUNTER → 2022-04-03 | Outpatient (CLI) | payer OTHER ==
--- NOTE | 2022-04-03 20:46 | MM ---
Reason for Exam: Screening (asymptomatic). Last mammogram was performed 2 year(s) and 1 month(s) ago. Patient History: Menarche at age 12. First Full-Term at age 27. Currently using Estrogen, starting at age 23. Maternal aunt had breast cancer at or over age 50. Mother had breast cancer at or over age 50. Last menstrual period: Risk Values: Rosario 5 year model risk: 2.1%. NCI Lifetime model risk: 18.3%. Film Views: Bilateral CC views were taken. Left MLO views were taken. 2 view(s) taken. Right MLO view was taken. 1 view(s) taken. Prior Study Comparison: 02/03/2020 Bilateral MG screening mammo w CAD - 2, [facility]. 02/24/2020 Left MG work up mamm w CAD LT - 2, [facility]. Tissue Density: The breast tissue is heterogeneously dense. This may lower the sensitivity of mammography. Findings: Analyzed By CAD. Benign vascular calcifications on the left. No significant change from prior exam. Overall Assessment: Benign, BI-RAD 2 Management: Screening Mammogram of both breasts in 1 year. A clinical breast exam by your physician is recommended on an annual basis and results should be correlated with mammographic findings. Also, the patient should continue monthly self breast exams.
== END | disposition home or self-care (01) ==
LOC: CPPFTMAIN 08:24
PROVIDERS: ATTEND Internal Medicine
DX: R06.02 Shortness of breath (principal)
CPT/HCPCS: 77067; 94060; 94726; 94729

== ENCOUNTER 2022-05-11 11:37 | Observation (INO) | payer OTHER ==
[2022-05-11] MEDS ORDERED: DIAZEPAM 5 MG/ML 2 ML INJ IVP STA (12:01)
[2022-05-11] MEDS ORDERED: SODIUM CHLORIDE 0.9% 500 ML 500 ML IV ONE (12:05)
[2022-05-11] MEDS ORDERED: SODIUM CHLORIDE 0.9% 1,000 ML IV ONE (12:05)
[2022-05-11 12:46] LABS: ALT 28 U/L (4-34); AST 53 U/L (14-36); African American GFR (CKD) >90 (>60 ml/min/1.73 sqM); Albumin 4.1 g/dL (3.5-5.0); Alkaline Phosphatase 131 U/L (38-126); Anion Gap 11 mmol/L; Blood Urea Nitrogen 16 mg/dL (7-17); Calcium 8.6 mg/dL (8.4-10.2); Carbon Dioxide 24 mmol/L (22-30); Chloride 104 mmol/L (98-107); Glucose 98 mg/dL (74-99); Lipase 131 U/L (23-300); Magnesium 2.1 mg/dL (1.6-2.3); Non-African American GFR(CKD) 83 (>60 ml/min/1.73 sqM); Potassium 4.5 mmol/L (3.5-5.1); Sodium 139 mmol/L (137-145); Total Bilirubin 0.2 mg/dL (0.2-1.3); Total Protein 6.9 g/dL (6.3-8.2)
--- NOTE | 2022-05-11 12:47 | ED ---
Psych HPI - General Chief Complaint: Psychiatric Symptoms Stated Complaint: Mental Health Time Seen by Provider: 05/11/22 11:45 Source: patient, RN notes reviewed Mode of arrival: wheelchair Limitations: no limitations - History of Present Illness Initial Comments: This a 52-year-old female presents emergency Department chief complaint of depression, suicidal ideation, alcohol abuse. Patient was having erratic behavior when someone reportedly called police. Patient found to be acutely intoxicated stating that she didn't want to harm herself. Patient does not provide much information as she is acutely upset, intoxicated. Denies any localized pain localizing injuries. - Related Data Home Medications Medication Instructions Recorded Confirmed Cyclobenzaprine [Flexeril] 10 mg PO BID 04/27/20 11/02/21 Dicyclomine [Bentyl] 10 mg PO BID PRN 04/27/20 11/02/21 Folic Acid 1 mg PO DAILY 04/27/20 11/02/21 Ibuprofen [Motrin] 600 mg PO Q8HR PRN 04/27/20 11/02/21 Lactulose 20 gm PO DAILY 04/27/20 11/02/21 Levothyroxine Sodium [Synthroid] 75 mcg PO DAILY 04/27/20 11/02/21 Omeprazole [PriLOSEC] 20 mg PO AC-BID 04/27/20 11/02/21 estradioL [Estradiol] 0.5 mg PO DAILY 04/27/20 11/02/21 lamoTRIgine 150 mg PO BID 04/27/20 11/02/21 medroxyPROGESTERone [Provera] 2.5 mg PO DAILY 04/27/20 11/02/21 Multivit with Calcium,Iron,Min 1 each PO DAILY 10/19/20 11/02/21 [Women's Multivitamin] buPROPion HCL [Wellbutrin XL] 400 mg PO DAILY 04/20/21 11/02/21 Venlafaxine HCl [Effexor] 75 mg PO TID 07/11/21 11/02/21 Previous Rx's Medication Instructions Recorded Pregabalin [Lyrica] 150 mg PO BID 30 Days #60 cap 08/14/21 Allergies Allergy/AdvReac Type Severity Reaction Status Date / Time bee venom protein (honey bee) Allergy Anaphylaxis Verified 11/02/21 16:02 methylphenidate Allergy Rash/Hives Verified 11/02/21 16:02 [From Ritalin] Review of Systems ROS Statement: Those systems with pertinent positive or pertinent negative responses have been documented in the HPI. ROS Other: All systems not noted in ROS Statement are negative. Past Medical History Past Medical History: GERD/Reflux, Osteoarthritis (OA), Thyroid Disorder Additional Past Medical History / Comment(s): Difficulty swallowing @ times, Hx. of Helena's Syndrome Hypotension, cervical pain History of Any Multi-Drug Resistant Organisms: None Reported Past Surgical History: Cholecystectomy Additional Past Surgical History / Comment(s): PAIN CLINIC PROCEDURES Past Anesthesia/Blood Transfusion Reactions: No Reported Reaction Past Psychological History: Anxiety, Depression, Panic Disorder Smoking Status: Current every day smoker Past Alcohol Use History: None Reported Past Drug Use History: None Reported - Past Family History Mother Family Medical History: Cancer Additional Family Medical History / Comment(s): breast cancer Father Family Medical History: Cancer General Exam Limitations: no limitations General appearance: alert, in no apparent distress, appears intoxicated Head exam: Present: atraumatic, normocephalic, normal inspection Eye exam: Present: normal appearance, PERRL, EOMI. Absent: scleral icterus, conjunctival injection, periorbital swelling ENT exam: Present: normal exam, mucous membranes moist Neck exam: Present: normal inspection, full ROM. Absent: tenderness, meningismus, lymphadenopathy Respiratory exam: Present: normal lung sounds bilaterally. Absent: respiratory distress, wheezes, rales, rhonchi, stridor Cardiovascular Exam: Present: regular rate, normal rhythm, normal heart sounds. Absent: systolic murmur, diastolic murmur, rubs, gallop, clicks GI/Abdominal exam: Present: soft, normal bowel sounds. Absent: distended, tenderness, guarding, rebound, rigid Neurological exam: Present: alert Psychiatric exam: Present: depressed Skin exam: Present: warm, dry, intact, normal color. Absent: rash Course Vital Signs 05/11/22 11:39 Temperature 97.8 F Pulse Rate 99 Respiratory 18 Rate Blood Pressure 86/41 O2 Sat by Pulse 99 Oximetry Procedures - Restraint - Face to Face Restraint Occurrence 1 Patient's Immediate Situation: Endangers self safety, Endangers staff safety, Violent behavior Patient's Reaction to the Intervention: Uncooperative, Belligerent Patient's Medical & Behavioral Condition: Agitated Need to Continue or Terminate Restraint or Seclusion: Continue Face to Face Eval of Restraint Date: 05/11/22 Face to Face Eval of Restraint Time: 11:45 Medical Decision Making - Medical Decision Making Patient is acutely intoxicated with a blood alcohol over 400. Patient be admitted for observation pending psychiatric evaluation. Patient was placed on CIWA protocol and Librium - Lab Data Result diagrams: 05/11/22 12:11 Lab Results 05/11/22 Range/Units 12:11 Sodium 139 (137-145) mmol/L Potassium 4.5 (3.5-5.1) mmol/L Chloride 104 (98-107) mmol/L Carbon Dioxide 24 (22-30) mmol/L Anion Gap 11 mmol/L BUN 16 (7-17) mg/dL Creatinine 0.82 (0.52-1.04) mg/dL Est GFR (CKD-EPI)AfAm >90 (>60 ml/min/1.73 sqM) Est GFR (CKD-EPI)NonAf 83 (>60 ml/min/1.73 sqM) Glucose 98 (74-99) mg/dL Calcium 8.6 (8.4-10.2) mg/dL Magnesium 2.1 (1.6-2.3) mg/dL Total Bilirubin 0.2 (0.2-1.3) mg/dL AST 53 H (14-36) U/L ALT 28 (4-34) U/L Alkaline Phosphatase 131 H (38-126) U/L Total Protein 6.9 (6.3-8.2) g/dL Albumin 4.1 (3.5-5.0) g/dL Lipase 131 (23-300) U/L Serum Alcohol 439 H* mg/dL Disposition Clinical Impression: Depression, Suicidal ideation, Alcohol abuse, Alcohol intoxication Disposition: ADMITTED IP TO THIS HOSP Referrals: None,Stated [Primary Care Provider] - 1-2 days Time of Disposition: 13:14
[2022-05-11 12:59] LABS: Alcohol 439 mg/dL
[2022-05-11] MEDS ORDERED: chlordiazePOXIDE 25 MG CAP PO PRN ×3 (13:13)
[2022-05-11] MEDS ORDERED: NALOXONE 0.4 MG/ML 1 ML VIAL IV PRN (13:15)
[2022-05-11] MEDS ORDERED: ONDANSETRON 4 MG/2 ML VIAL IVP PRN (13:15)
[2022-05-11 13:19] LABS: Basophils # (A) 0.1 k/uL (0-0.2); Basophils % (A) 2 %; Eosinophils # (A) 0.2 k/uL (0-0.7); Eosinophils % (A) 2 %; HCT 43.8 % (34.0-46.0); HGB 14.3 gm/dL (11.4-16.0); Lymphocytes # (A) 2.2 k/uL (1.0-4.8); Lymphocytes % (A) 32 %; MCH 31.7 pg (25.0-35.0); MCHC 32.6 g/dL (31.0-37.0); MCV 97.2 fL (80.0-100.0); Mean Platelet Volume 6.9; Monocytes # (A) 0.5 k/uL (0-1.0); Monocytes % (A) 7 %; Neutrophils # (A) 3.8 k/uL (1.3-7.7); Neutrophils % (A) 55 %; Platelet Count 380 k/uL (150-450); RBC 4.51 m/uL (3.80-5.40); RDW 12.3 % (11.5-15.5)
--- NOTE | 2022-05-11 13:39 | P.HPIM ---
History of Present Illness H&P Date: 05/11/22 History of Presenting Illness: Patient is a very pleasant 52-year-old female with a past medical history of alcoholism, anxiety, depression, panic disorder, nicotine dependence, crack cocaine use, and marijuana use. She presented to the emergency department in custody of police for psychiatric evaluation secondary to reports of suicidal ideations. Patient was intoxicated and was reportedly initially behaving erratically. Patient has been petitioned by the police for suicidal ideations. She underwent full evaluation in the emergency department. CBC unremarkable. CMP revealed elevated AST of 53 and elevated alkaline phosphatase of 131. Urine drug screen positive for cocaine. Serum alcohol 439. Patient was admitted under our services to be monitored until clinically sober and can be evaluated by psychiatry. Upon evaluation at bedside in the emergency department, patient thrashing around in bed and tearful. Patient reports feeling depressed and having suicidal ideations but currently denies having a plan. Patient reports that she drinks anywhere from a pint to a fifth of vodka daily. She reports long-standing history of alcohol abuse, nicotine dependence, and drug use. Patient reports it has gotten worse over the past few months. Patient reports her last time smoking crack cocaine was 2 days ago. Patient denied having any h eadache, lightheadedness, dizziness, chest pain, palpitations, nausea, vomiting, tremors, or experiencing any numbness/tingling/weakness in her extremities at this time. Review of systems: Pertinent positives and negatives as discussed in HPI, a complete review of systems was performed and all other systems are negative. Physical exam: Vital signs reviewed and stable. General: Nontoxic, no distress and appears stated age. Disheveled appearance. Thin build. Derm: Skin warm and dry, normal coloration for ethnicity. Head: Atraumatic, normocephalic and symmetric. Eyes: EOMs intact, no lid lag, and anicteric sclera Mouth: no lip lesions, mucus membranes moist Cardiovascular: regular rate and rhythm with normal S1S2, no murmur, positive posterior tibial pulses bilaterally, and cap refill < 2 seconds. Lungs: Respirations even, regular, and unlabored on room air. Lungs CTA bilaterally, no rhonchi, no rales, no wheezing, and no accessory muscle usage. Abdominal: soft, nontender to palpation, no guarding, no appreciable organomegaly Ext: ROM intact. No gross muscle atrophy, no edema, no contractures Neuro: Speech clear, face symmetrical and CN II-XII grossly intact with no noted focal neuro deficits Psych: Alert and oriented to person, place, time, and situation. Appropriate and pleasant affect. Assessment and Plan of Care: Alcohol intoxication an active alcoholic Elevated liver enzymes secondary to above -CIWA Protocol with symptom triggered medication management with Librium -Banana bag 1 dose followed by continuous IV hydration. -Thiamine 100 mg twice a day -Multivitamin daily -Folate 1 mg daily -Seizure, fall, aspiration, and elopement precautions in place. -Urine drug screen positive for cocaine -Continued close monitoring of electrolytes and replace as needed. -Telemetry monitoring. Suicidal ideations History of anxiety, depression, and panic disorder -Maintain safety with continuous suicide precautions. -Patient petitioned by the police -Psychiatry consulted -Patient to be reevaluated by psychiatry once clinically sober tomorrow morning with tentative plans for transfer to inpatient psychiatric unit. -Patient to resume home psychiatric medication regimen. Polysubstance abuse -Recommend cessation of marijuana and crack cocaine. Nicotine dependence -Encouragement and education on the importance of smoking cessation and the risks of continued use. -Nicotine patch. The patient is admitted with an anticipated less than 2 midnight stay for evaluation of alcohol intoxication and suicidal ideation CODE STATUS: Full code DVT prophylaxis: Heparin Discussed with: Patient and RN Anticipated discharge date: Tomorrow morning Anticipated discharge place: Discharged to inpatient psychiatric unit A total of 40 minutes was spent on the care of this complex patient more than 50% of the time was spent in counseling and care coordination. Past Medical History Past Medical History: GERD/Reflux, Osteoarthritis (OA), Thyroid Disorder Additional Past Medical History / Comment(s): Difficulty swallowing @ times, Hx. of Helena's Syndrome Hypotension, cervical pain History of Any Multi-Drug Resistant Organisms: None Reported Past Surgical History: Cholecystectomy Additional Past Surgical History / Comment(s): PAIN CLINIC PROCEDURES Past Anesthesia/Blood Transfusion Reactions: No Reported Reaction Past Psychological History: Anxiety, Depression, Panic Disorder Smoking Status: Current every day smoker Past Alcohol Use History: None Reported Past Drug Use History: None Reported - Past Family History Mother Family Medical History: Cancer Additional Family Medical History / Comment(s): breast cancer Father Family Medical History: Cancer Medications and Allergies Home Medications Medication Instructions Recorded Confirmed Type Dicyclomine [Bentyl] 10 mg PO BID PRN 04/27/20 05/11/22 History Folic Acid 1 mg PO DAILY 04/27/20 05/11/22 History Lactulose 20 gm PO DAILY 04/27/20 05/11/22 History Omeprazole [PriLOSEC] 20 mg PO AC-BID 04/27/20 05/11/22 History estradioL [Estradiol] 0.5 mg PO Q48H 04/27/20 05/11/22 History medroxyPROGESTERone [Provera] 2.5 mg PO DAILY 04/27/20 05/11/22 History Albuterol Sulfate [Proair Hfa] 1 puff INHALATION RT-Q4H PRN 05/11/22 05/11/22 History Cyclobenzaprine [Flexeril] 10 mg PO TID PRN 05/11/22 05/11/22 History Docusate [Colace] 100 mg PO DAILY 05/11/22 05/11/22 History Fluticasone Nasal [place] [Flonase 1 - 2 spray EA NOSTRIL DAILY 05/11/22 05/11/22 History Nasal [place]] Levothyroxine Sodium [Synthroid] 100 mcg PO DAILY 05/11/22 05/11/22 History Miconazole 2% Cream [Monistat-Derm] 1 applic TOPICAL BID 05/11/22 05/11/22 History Naproxen [EC-Naprosyn] 500 mg PO BID PRN 05/11/22 05/11/22 History bisacodyL [Bisacodyl] 5 mg PO DAILY PRN 05/11/22 05/11/22 History buPROPion XL [Wellbutrin XL] 450 mg PO DAILY 05/11/22 05/11/22 History busPIRone HCl [Buspar] 10 mg PO BID 05/11/22 05/11/22 History hydrOXYzine pamoate [Vistaril] 50 mg PO HS 05/11/22 05/11/22 History Allergies Allergy/AdvReac Type Severity Reaction Status Date / Time bee venom protein (honey bee) Allergy Anaphylaxis Verified 05/11/22 13:32 methylphenidate Allergy Rash/Hives Verified 05/11/22 13:32 [From Ritalin] Physical Exam Vitals: Vital Signs Temp Pulse Resp BP Pulse Ox 05/11/22 11:39 97.8 F 99 18 86/41 99 Intake and Output 05/10/22 05/11/22 05/11/22 22:59 06:59 14:59 Other: Weight 49.895 kg Results CBC & Chem 7: 05/11/22 12:11 05/11/22 12:11 Labs: Abnormal Lab Results - Last 24 Hours (Table) 05/11/22 Range/Units 12:11 AST 53 H (14-36) U/L Alkaline Phosphatase 131 H (38-126) U/L Serum Alcohol 439 H* mg/dL
[2022-05-11] MEDS ORDERED: bisacodyL 5 MG TABLET.DR PO PRN (13:43)
[2022-05-11] MEDS ORDERED: CYCLOBENZAPRINE 10 MG TAB PO PRN (13:43)
[2022-05-11] MEDS ORDERED: DICYCLOMINE 10 MG CAP PO PRN (13:43)
[2022-05-11] MEDS ORDERED: ALBUTEROL NEBULIZED 2.5 MG/3 ML INHALATION PRN (13:43)
[2022-05-11 13:59] LABS: Amphetamine Screen,Urine Not Detected (NotDetected); Barbiturate Screen,Urine Not Detected (NotDetected); Benzodiazepines Screen,Urine Not Detected (NotDetected); Cocaine Screen,Urine Detected (NotDetected); Methadone Screen, Urine Not Detected (NotDetected); Opiate Screen,Urine Not Detected (NotDetected); Oxycodone Screen, Urine Not Detected (NotDetected); Phencyclidine Screen,Urine Not Detected (NotDetected); Tricyclic Antidepressant,Urine Not Detected (NotDetected); Urn Cannabinoid Scrn Not Detected (NotDetected)
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
[2022-05-11] MEDS: 1: THIAMINE 100 MG, FOLIC ACID 1 MG in SODIUM CHLORIDE 0.9% 1,000 ML 2: SODIUM CHLORIDE IVPB SCH (16:06)
[2022-05-11] MEDS ORDERED: NON FORMULARY DRUG (Omeprazole 20 MG Capsule.Dr) PO SCH (17:30)
[2022-05-11] MEDS: THIAMINE 100 MG TAB PO SCH (20:03)
[2022-05-11] MEDS: hydrOXYzine pamoate 25 MG CAP PO SCH (20:14)
[2022-05-11] MEDS: busPIRone HCl 10 MG TAB PO SCH (20:15)
[2022-05-11] MEDS: chlordiazePOXIDE 25 MG CAP PO PRN (20:22)
[2022-05-11] MEDS: HEPARIN SODIUM,PORCINE/PF 5,000 UNIT/0.5 ML SYRINGE SQ SCH (23:55)
[2022-05-12] MEDS: 1: THIAMINE 100 MG, FOLIC ACID 1 MG in SODIUM CHLORIDE 0.9% 1,000 ML 2: SODIUM CHLORIDE IVPB SCH ×2 (02:08→11:42)
[2022-05-12] MEDS ORDERED: LEVOTHYROXINE 100 MCG TAB PO SCH (06:30)
[2022-05-12 08:12] VITALS: RESP 18
[2022-05-12 08:45] LABS: HCT 37.7 % (37.2-46.3); MCH 30.7 pg (27.0-32.0); MCHC 31.8 g/dL (32.0-37.0); MCV 96.4 fL (80.0-97.0); Mean Platelet Volume 8.9 fL (9.5-12.2); NRBC Per 100 WBC 0 /100 WBCS (0.0-0.0); Platelet Count 281 X 10*3/uL (140-440); RBC 3.91 X 10*6/uL (4.10-5.20); RDW 12.6 % (11.5-14.5); WBC 5.39 X 10*3/uL (4.50-10.00)
[2022-05-12] MEDS: chlordiazePOXIDE 25 MG CAP PO PRN ×2 (08:48→17:02)
[2022-05-12] MEDS: busPIRone HCl 10 MG TAB PO SCH ×2 (08:48→19:34)
[2022-05-12] MEDS: THIAMINE 100 MG TAB PO SCH ×2 (08:48→16:51)
[2022-05-12] MEDS: HEPARIN SODIUM,PORCINE/PF 5,000 UNIT/0.5 ML SYRINGE SQ SCH ×2 (08:49→16:51)
[2022-05-12 09:00] LABS: African American GFR (CKD) 116.3 (60.0-200.0); Albumin 3.5 g/dL (3.8-4.9); Albumin/Globulin Ratio 1.67 (1.60-3.17); Anion Gap 10.8 mmol/L (10.00-18.00); BUN/Creat Ratio 14.57 Ratio (12.00-20.00); Blood Urea Nitrogen 10.2 mg/dL (9.0-27.0); Calcium 8.6 mg/dL (8.7-10.3); Carbon Dioxide 22.2 mmol/L (20.0-27.5); Globulin 2.1 g/dL (1.6-3.3); Magnesium 1.9 mg/dL (1.5-2.4); Non-African American GFR(CKD) 100.3 (60.0-200.0); Total Bilirubin 0.5 mg/dL (0.30-1.20); Total Protein 5.6 g/dL (6.2-8.2)
[2022-05-12] MEDS ORDERED: PANTOPRAZOLE 40 MG/10 ML VIAL IV SCH (09:00)
[2022-05-12] MEDS ORDERED: buPROPion XL 150 MG TAB.ER.24H PO SCH ×2 (09:00)
[2022-05-12] MEDS ORDERED: NICOTINE 14MG/24HR PATCH TRANSDERM SCH (09:00)
[2022-05-12] MEDS ORDERED: FOLIC ACID 1 MG TAB PO SCH (09:00)
[2022-05-12] MEDS ORDERED: MULTIVITAMINS, THERA 1 EACH TAB PO SCH (09:00)
[2022-05-12] MEDS ORDERED: LACTULOSE 20 GM/30 ML CUP PO SCH (09:00)
[2022-05-12] MEDS ORDERED: DOCUSATE 100 MG CAP PO SCH (09:00)
[2022-05-12 15:19] VITALS: BP 144/85; PULSE 87; TEMP 98.2
--- NOTE | 2022-05-12 16:36 | P.DS ---
Providers Date of admission: 05/11/22 13:15 Expected date of discharge: 05/12/22 Attending physician: Jazmyn Nieves DO Consults: 05/11/22 13:10 Consult Physician Routine Consulting Provider: Cole Jeronimo Consult Reason/Comments: Suicidal ideation Do you want consulting provider notified?: Yes Primary care physician: Stated None Hospital Course: The patient is a 52 presented to the emergency [id number] female with history of alcohol abuse, crack cocaine use. The patient was sent to the emergency room for evaluation because of complaints of suicidal ideations. The patient states she smoked crack cocaine 2 days prior. The patient had a alcohol level of 458. She was seen by psychiatry who recommended the patient was appropriate for inpatient psych. Patient was monitored until she was clinically sober. She was seen by me this AM did not have overt symptoms of withdrawal and is appropriate and medically stable for inpatient psychiatry. The patient had no complaints of chest pain shortness of breath nausea or vomiting. Time spent 32 minutes Patient Condition at Discharge: Good Plan - Discharge Summary Discharge Rx Participant: Yes New Discharge Prescriptions: No Action Lactulose 20 gm PO DAILY Folic Acid 1 mg PO DAILY estradioL [Estradiol] 0.5 mg PO Q48H Dicyclomine [Bentyl] 10 mg PO BID PRN PRN Reason: Constipation medroxyPROGESTERone [Provera] 2.5 mg PO DAILY Omeprazole [PriLOSEC] 20 mg PO AC-BID hydrOXYzine pamoate [Vistaril] 50 mg PO HS Albuterol Sulfate [Proair Hfa] 1 puff INHALATION RT-Q4H PRN PRN Reason: Shortness Of Breath Naproxen [EC-Naprosyn] 500 mg PO BID PRN PRN Reason: Pain Miconazole 2% Cream [Monistat-Derm] 1 applic TOPICAL BID Levothyroxine Sodium [Synthroid] 100 mcg PO DAILY busPIRone HCl [Buspar] 10 mg PO BID bisacodyL [Bisacodyl] 5 mg PO DAILY PRN PRN Reason: Constipation Docusate [Colace] 100 mg PO DAILY Fluticasone Nasal [place] [Flonase Nasal [place]] 1 - 2 spray EA NOSTRIL DAILY Cyclobenzaprine [Flexeril] 10 mg PO TID PRN PRN Reason: Muscle Spasm buPROPion XL [Wellbutrin XL] 450 mg PO DAILY Discharge Medication List Dicyclomine [Bentyl] 10 mg PO BID PRN 04/27/20 [History] Folic Acid 1 mg PO DAILY 04/27/20 [History] Lactulose 20 gm PO DAILY 04/27/20 [History] Omeprazole [PriLOSEC] 20 mg PO AC-BID 04/27/20 [History] estradioL [Estradiol] 0.5 mg PO Q48H 04/27/20 [History] medroxyPROGESTERone [Provera] 2.5 mg PO DAILY 04/27/20 [History] Albuterol Sulfate [Proair Hfa] 1 puff INHALATION RT-Q4H PRN 05/11/22 [History] Cyclobenzaprine [Flexeril] 10 mg PO TID PRN 05/11/22 [History] Docusate [Colace] 100 mg PO DAILY 05/11/22 [History] Fluticasone Nasal [place] [Flonase Nasal [place]] 1 - 2 spray EA NOSTRIL DAILY 05/11/22 [History] Levothyroxine Sodium [Synthroid] 100 mcg PO DAILY 05/11/22 [History] Miconazole 2% Cream [Monistat-Derm] 1 applic TOPICAL BID 05/11/22 [History] Naproxen [EC-Naprosyn] 500 mg PO BID PRN 05/11/22 [History] bisacodyL [Bisacodyl] 5 mg PO DAILY PRN 05/11/22 [History] buPROPion XL [Wellbutrin XL] 450 mg PO DAILY 05/11/22 [History] busPIRone HCl [Buspar] 10 mg PO BID 05/11/22 [History] hydrOXYzine pamoate [Vistaril] 50 mg PO HS 05/11/22 [History] Follow up Appointment(s)/Referral(s): None,Stated [Primary Care Provider] - 1-2 days Discharge Disposition: TRANSFER TO PSYCH HOSP/UNIT
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
[2022-05-12] MEDS: hydrOXYzine pamoate 25 MG CAP PO SCH (19:33)
== END 2022-05-12 19:45 | disposition home or self-care (01) ==
LOC: EC 11:37 → 6NMEDSUR 13:15 → 4SSUR 14:54
PROVIDERS: ADMIT Internal Medicine; ATTEND Internal Medicine
DX: F33.2 Major depressive disorder, recurrent severe without psychotic features (principal); R45.851 Suicidal ideations; F10.229 Alcohol dependence with intoxication, unspecified; Y90.8 Blood alcohol level of 240 mg/100 ml or more; F14.90 Cocaine use, unspecified, uncomplicated; F41.0 Panic disorder [episodic paroxysmal anxiety]; K21.9 Gastro-esophageal reflux disease without esophagitis; M19.90 Unspecified osteoarthritis, unspecified site; E07.9 Disorder of thyroid, unspecified; R13.10 Dysphagia, unspecified; E23.0 Hypopituitarism; I95.9 Hypotension, unspecified; M54.2 Cervicalgia; F17.200 Nicotine dependence, unspecified, uncomplicated; G47.00 Insomnia, unspecified; R74.8 Abnormal levels of other serum enzymes; Z90.49 Acquired absence of other specified parts of digestive tract; Z71.9 Counseling, unspecified; F19.10 Other psychoactive substance abuse, uncomplicated; Z71.51 Drug abuse counseling and surveillance of drug abuser; Z71.6 Tobacco abuse counseling; Z79.890 Hormone replacement therapy; Z79.899 Other long term (current) drug therapy; Z88.8 Allergy status to other drugs, medicaments and biological substances; Z91.030 Bee allergy status; Z78.1 Physical restraint status; Z80.3 Family history of malignant neoplasm of breast
CPT/HCPCS: 96361 ×3; 96372 ×2; 96375; 82075; 96374; 99284; 36415; 80053 ×2; 83690; 83735 ×2; 85025; 85027; 80306; G0378 ×3; G0480; J3411 ×2; J3360; C9113; J1644 ×2; 80320

== ENCOUNTER 2022-05-15 18:57 | Inpatient (IN) | payer OTHER ==
[2022-05-15] MEDS ORDERED: SODIUM CHLORIDE 0.9% 1,000 ML IV STA (19:13)
[2022-05-15] MEDS ORDERED: DIPH,PERTUS(ACELL)TETVAC-LF 0.5 ML VIAL IM ONE (19:14)
[2022-05-15] MEDS ORDERED: LIDOCAINE 1% INJ 10MG/ML (5 ML VIAL-PF) SQ ONE ×2 (19:16)
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
[2022-05-15] MEDS ORDERED: HALOPERIDOL LACTATE 5 MG/ML 1 ML VIAL IM STA (19:41)
[2022-05-15 19:59] LABS: Basophils # (A) 0.1 k/uL (0-0.2); Basophils % (A) 1 %; Eosinophils # (A) 0.1 k/uL (0-0.7); Eosinophils % (A) 2 %; HCT 40.5 % (34.0-46.0); HGB 13.2 gm/dL (11.4-16.0); Lymphocytes # (A) 2.1 k/uL (1.0-4.8); Lymphocytes % (A) 35 %; MCHC 32.5 g/dL (31.0-37.0); MCV 98.6 fL (80.0-100.0); Mean Platelet Volume 7.8; Monocytes # (A) 0.4 k/uL (0-1.0); Monocytes % (A) 6 %; Neutrophils % (A) 51 %; Platelet Count 306 k/uL (150-450); RBC 4.11 m/uL (3.80-5.40); RDW 12.2 % (11.5-15.5); WBC 5.9 k/uL (3.8-10.6)
[2022-05-15 20:32] LABS: ALT 36 U/L (4-34); AST 60 U/L (14-36); Acetaminophen <10.0 ug/mL; African American GFR (CKD) 84 (>60 ml/min/1.73 sqM); Albumin 3.8 g/dL (3.5-5.0); Alkaline Phosphatase 93 U/L (38-126); Anion Gap 5 mmol/L; Blood Urea Nitrogen 9 mg/dL (7-17); Calcium 8.7 mg/dL (8.4-10.2); Carbon Dioxide 25 mmol/L (22-30); Chloride 105 mmol/L (98-107); Glucose 101 mg/dL (74-99); Non-African American GFR(CKD) 73 (>60 ml/min/1.73 sqM); Potassium 3.9 mmol/L (3.5-5.1); Salicylate <1.0 mg/dL; Sodium 135 mmol/L (137-145); Total Bilirubin 0.2 mg/dL (0.2-1.3); Total Protein 6.4 g/dL (6.3-8.2)
[2022-05-15 20:42] LABS: Alcohol 348 mg/dL
[2022-05-15] MEDS ORDERED: NALOXONE 0.4 MG/ML 1 ML VIAL IV PRN (20:46)
[2022-05-15] MEDS ORDERED: THIAMINE 100 MG/ML 2 ML VIAL IM STA (20:47)
[2022-05-15] MEDS ORDERED: LORazepam 2 MG/ML INJ IV STA (20:47)
[2022-05-15] MEDS: FAMOTIDINE 20 MG TAB PO SCH (21:12)
[2022-05-15 22:09] LABS: Amphetamine Screen,Urine Not Detected (NotDetected); Barbiturate Screen,Urine Not Detected (NotDetected); Benzodiazepines Screen,Urine Detected (NotDetected); Cocaine Screen,Urine Detected (NotDetected); Methadone Screen, Urine Not Detected (NotDetected); Opiate Screen,Urine Not Detected (NotDetected); Oxycodone Screen, Urine Not Detected (NotDetected); Phencyclidine Screen,Urine Not Detected (NotDetected); Tricyclic Antidepressant,Urine Not Detected (NotDetected); Urn Cannabinoid Scrn Not Detected (NotDetected)
[2022-05-16] MEDS ORDERED: LORazepam 2 MG/ML INJ IV PRN ×3 (01:57)
--- NOTE | 2022-05-16 02:04 | P.HPIM ---
History of Present Illness H&P Date: 05/15/22 Chief Complaint: Suicide 52-year-old female unknown past medical history Patient was brought into the ED with police escort for suicide attempt. Patient had lacerations over bilateral breasts which was sutured and attended to in the ED. Patient was intoxicated with alcohol unable to provide any meaningful history. She doesn't make any eye contact she doesn't talk she doesn't cooperate with exam or interview. No further information available at this time Blood work shows elevated AST ALT slightly. Alcohol level of 348, urine drug screen showed positive for benzos and cocaine, rest of her labs are unremarkable. Review of Systems ROS unobtainable: due to mental status Past Medical History Past Medical History: GERD/Reflux, Osteoarthritis (OA), Thyroid Disorder Additional Past Medical History / Comment(s): Difficulty swallowing @ times, Hx. of Helena's Syndrome Hypotension, cervical pain History of Any Multi-Drug Resistant Organisms: None Reported Past Surgical History: Cholecystectomy Additional Past Surgical History / Comment(s): PAIN CLINIC PROCEDURES Past Anesthesia/Blood Transfusion Reactions: No Reported Reaction Past Psychological History: Anxiety, Depression, Panic Disorder Smoking Status: Current every day smoker Past Alcohol Use History: None Reported Additional Past Alcohol Use History / Comment(s): Smoker of 1/2 PPD for 35 yrs on and off, currently smoking less than half a pack per day. Past Drug Use History: None Reported Additional Drug Use History / Comment(s): . - Past Family History Mother Family Medical History: Cancer Additional Family Medical History / Comment(s): breast cancer Father Family Medical History: Cancer Medications and Allergies Home Medications Medication Instructions Recorded Confirmed Type Dicyclomine [Bentyl] 10 mg PO BID PRN 04/27/20 05/11/22 History Folic Acid 1 mg PO DAILY 04/27/20 05/11/22 History Lactulose 20 gm PO DAILY 04/27/20 05/11/22 History Omeprazole [PriLOSEC] 20 mg PO AC-BID 04/27/20 05/11/22 History estradioL [Estradiol] 0.5 mg PO Q48H 04/27/20 05/11/22 History medroxyPROGESTERone [Provera] 2.5 mg PO DAILY 04/27/20 05/11/22 History Albuterol Sulfate [Proair Hfa] 1 puff INHALATION RT-Q4H PRN 05/11/22 05/11/22 History Cyclobenzaprine [Flexeril] 10 mg PO TID PRN 05/11/22 05/11/22 History Docusate [Colace] 100 mg PO DAILY 05/11/22 05/11/22 History Fluticasone Nasal Sp[place] [Flonase 1 - 2 spray EA NOSTRIL DAILY 05/11/22 05/11/22 History Nasal Spicer] Levothyroxine Sodium [Synthroid] 100 mcg PO DAILY 05/11/22 05/11/22 History Miconazole 2% Cream [Monistat-Derm] 1 applic TOPICAL BID 05/11/22 05/11/22 History Naproxen [EC-Naprosyn] 500 mg PO BID PRN 05/11/22 05/11/22 History bisacodyL [Bisacodyl] 5 mg PO DAILY PRN 05/11/22 05/11/22 History buPROPion XL [Wellbutrin XL] 150 mg PO DAILY #0 tab 05/12/22 Rx buPROPion XL [Wellbutrin XL] 150 mg PO DAILY #30 tab 05/12/22 Rx busPIRone HCl [Buspar] 10 mg PO BID 30 Days #60 tab 05/12/22 Rx hydrOXYzine pamoate [Vistaril] 50 mg PO HS PRN 30 Days #30 cap 05/12/22 Rx Allergies Allergy/AdvReac Type Severity Reaction Status Date / Time bee venom protein (honey bee) Allergy Anaphylaxis Verified 05/11/22 13:32 methylphenidate Allergy Rash/Hives Verified 05/11/22 13:32 [From Ritalin] Physical Exam Vitals: Vital Signs Pulse Resp BP Pulse Ox 05/15/22 20:57 76 16 121/88 96 Intake and Output 05/15/22 05/15/22 05/15/22 06:59 14:59 22:59 Other: Weight 61.235 kg Patient resisted interview and exam she keeps her blankets on top of her and her sister moving them and doesn't answer any questions Limited exam therefore Constitutional: No acute distress, uncooperative moving spontaneously Eyes: Resists opening eyes ENMT: Resists opening mouth. There is much as of blood on her face no visible wounds on her face neck or head Lungs: Limited however clear to auscultation with good breath sounds throughout Cardiovascular: Heart regular in rate and rhythm, No murmurs, gallops, or rubs No peripheral edema Abdominal: Soft Nontender Abdomen moving with respiration Skin: Laceration over bilateral wrists status post suturing in the ED Psychiatric: Patient is awake but does not cooperate moving spontaneously and purposefully Neuro unable to perform proper neuro exam Results CBC & Chem 7: 05/15/22 19:22 05/15/22 19:24 Labs: Abnormal Lab Results - Last 24 Hours (Table) 05/15/22 Range/Units 19:24 Sodium 135 L (137-145) mmol/L Glucose 101 H (74-99) mg/dL AST 60 H (14-36) U/L ALT 36 H (4-34) U/L Serum Alcohol 348 H* mg/dL Assessment and Plan Assessment: Suicide attempt by self-inflicted wounds bilateral wrists status post suturing in the ED Alcohol intoxication monitor for alcohol withdrawal syndrome Suicide precautions Fall precautions Benzos per CIWA scale Thiamine twice a day IV fluid hydration Full precautions Seizure precautions Suicide precautions Polysubstance abuse Alcohol, cocaine, benzo Psych evaluation Full code DVT prophylaxis upper subcu 3 times a day Verify active home meds in AM
[2022-05-16] MEDS: FAMOTIDINE 20 MG TAB PO SCH ×2 (08:16→20:21)
[2022-05-16] MEDS: HEPARIN SODIUM,PORCINE/PF 5,000 UNIT/0.5 ML SYRINGE SQ SCH ×2 (08:16→16:44)
[2022-05-16] MEDS ORDERED: PHENobarbitaL 16.2 MG TAB PO ONE ×2 (08:47→13:00)
[2022-05-16 09:25] LABS: ALT 51 U/L (4-34); AST 86 U/L (14-36); African American GFR (CKD) >90 (>60 ml/min/1.73 sqM); Albumin 3.5 g/dL (3.5-5.0); Albumin/Globulin Ratio 1.3; Alkaline Phosphatase 85 U/L (38-126); Anion Gap 8 mmol/L; Blood Urea Nitrogen 12 mg/dL (7-17); Calcium 8.4 mg/dL (8.4-10.2); Carbon Dioxide 25 mmol/L (22-30); Chloride 109 mmol/L (98-107); Globulin 2.7 g/dL; Glucose 72 mg/dL (74-99); Non-African American GFR(CKD) 81 (>60 ml/min/1.73 sqM); Potassium 4.7 mmol/L (3.5-5.1); Sodium 142 mmol/L (137-145); Total Bilirubin 0.2 mg/dL (0.2-1.3); Total Protein 6.2 g/dL (6.3-8.2)
[2022-05-16] MEDS ORDERED: LORazepam 1 MG TAB PO PRN ×3 (10:54→10:56)
[2022-05-16] MEDS ORDERED: ACETAMINOPHEN TAB 325 MG TAB PO PRN (10:55)
[2022-05-16] MEDS: MULTIVITAMINS, THERA 1 EACH TAB PO SCH ×2 (11:50→16:46)
[2022-05-16] MEDS: THIAMINE 100 MG TAB PO SCH ×2 (11:50→17:59)
[2022-05-16] MEDS: SODIUM CHLORIDE 0.9% 1,000 ML IV SCH ×2 (11:52→20:22)
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
--- NOTE | 2022-05-16 14:20 | P.PN ---
Subjective Progress Note Date: 05/16/22 Chief Complaint: Suicide History of present illness: 52-year-old female with past medical history significant for alcohol dependence disorder, depression and polysubstance abuse. Patient was brought into the ED with police escort for suicide attempt. Patient had lacerations over bilateral wrists which was sutured and attended to in the ED. Patient was intoxicated with alcohol unable to provide any meaningful history. She doesn't make any eye contact she doesn't talk she doesn't cooperate with exam or interview. No further information available at this time Blood work shows elevated AST ALT slightly. Alcohol level of 348, urine drug screen showed positive for benzos and cocaine, rest of her labs are unremarkable. Interval history: Patient was seen and examined in emergency room she is alert oriented 3. She denies any chest pain or shortness of breath. Patient is complaining of of mild to moderate headache. Patient stated that she she was sober for a year and half and she relapsed 6 months ago. Physical examination: General: non toxic, no distress, appears at stated age Derm: warm, dry Head: atraumatic, normocephalic, symmetric Eyes: EOMI, no lid lag, anicteric sclera Mouth: no lip lesion, mucus membranes moist Cardiovascular: S1S2 reg, no murmur, positive posterior tibial pulse bilateral, Lungs: CTA bilateral, no rhonchi, no rales , no accessory muscle use Abdominal: soft, nontender to palpation, no guarding, no appreciable organomegaly Ext: no gross muscle atrophy, no edema, no contractures Neuro: CN II-XI grossly intact, no focal neuro deficits Psych: Alert, oriented, appropriate affect Assessment and plan: #Suicide attempt by self-inflicted wounds bilateral wrists -Status post suturing in the emergency room -Psychiatry consulted #Alcohol intoxication monitor for alcohol withdrawal syndrome #Alcohol dependence disorder -Benzos per CIWA scale Thiamine twice a day IV fluid hydration Full precautions Seizure precautions Suicide precautions #Polysubstance abuse Alcohol, cocaine, benzo Full code DVT prophylaxis upper subcu 3 times a day Objective - Vital Signs Vital signs: Vital Signs Temp Pulse 79 05/16/22 07:22 Resp 16 05/16/22 07:22 BP 95/69 05/16/22 07:22 Pulse Ox 99 05/16/22 07:22 FiO2 Intake & Output 05/15/22 05/16/22 05/16/22 18:59 06:59 18:59 Weight 61.235 kg - Labs CBC & Chem 7: 05/15/22 19:22 05/16/22 07:51 Labs: Abnormal Lab Results - Last 24 Hours (Table) 05/15/22 05/15/22 05/16/22 Range/Units 19:22 19:24 07:51 Sodium 135 L (137-145) mmol/L Chloride 109 H (98-107) mmol/L Glucose 101 H 72 L (74-99) mg/dL AST 60 H 86 H (14-36) U/L ALT 36 H 51 H (4-34) U/L Total Protein 6.2 L (6.3-8.2) g/dL U Benzodiazepines Scrn Detected H (NotDetected) Urine Cocaine Screen Detected H (NotDetected) Serum Alcohol 348 H* mg/dL
[2022-05-16 14:49] LABS: Basophils # (A) 0.03 X 10*3/uL (0.00-0.10); Basophils % (A) 0.6 %; Eosinophils # (A) 0.14 X 10*3/uL (0.04-0.35); Eosinophils % (A) 2.8 %; HCT 41.5 % (37.2-46.3); HGB 12.9 g/dL (12.0-15.0); Immature Grans, Automated 0.4 %; Lymphocytes # (A) 2.19 X 10*3/uL (0.90-5.00); Lymphocytes % (A) 44.2 %; MCH 30.4 pg (27.0-32.0); MCHC 31.1 g/dL (32.0-37.0); MCV 97.6 fL (80.0-97.0); Mean Platelet Volume 9.1 fL (9.5-12.2); Monocytes # (A) 0.36 X 10*3/uL (0.20-1.00); Monocytes % (A) 7.3 %; NRBC Per 100 WBC 0 /100 WBCS (0.0-0.0); Neutrophils # (A) 2.21 X 10*3/uL (1.80-7.70); Neutrophils % (A) 44.7 %; Platelet Count 304 X 10*3/uL (140-440); RBC 4.25 X 10*6/uL (4.10-5.20); RDW 12.2 % (11.5-14.5); WBC 4.95 X 10*3/uL (4.50-10.00)
[2022-05-16] MEDS: PHENobarbitaL 16.2 MG TAB PO ONE ×2 (15:38→20:18)
[2022-05-17] MEDS: HEPARIN SODIUM,PORCINE/PF 5,000 UNIT/0.5 ML SYRINGE SQ SCH ×3 (00:54→16:00)
[2022-05-17] MEDS: SODIUM CHLORIDE 0.9% 1,000 ML IV SCH ×3 (00:54→16:35)
[2022-05-17] MEDS: FAMOTIDINE 20 MG TAB PO SCH (08:04)
[2022-05-17] MEDS ORDERED: hydrOXYzine pamoate 25 MG CAP PO PRN (09:30)
[2022-05-17] MEDS ORDERED: buPROPion XL 150 MG TAB.ER.24H PO SCH (09:30)
[2022-05-17] MEDS ORDERED: busPIRone HCl 10 MG TAB PO SCH (09:30)
[2022-05-17] MEDS ORDERED: bisacodyL 5 MG TABLET.DR PO PRN (09:30)
[2022-05-17] MEDS ORDERED: NAPROXEN 250 MG TAB PO PRN (09:30)
[2022-05-17] MEDS ORDERED: ALBUTEROL NEBULIZED 2.5 MG/3 ML INHALATION PRN (09:30)
[2022-05-17] MEDS ORDERED: DICYCLOMINE 10 MG CAP PO PRN (09:30)
[2022-05-17] MEDS ORDERED: CYCLOBENZAPRINE 10 MG TAB PO PRN (09:30)
[2022-05-17] MEDS ORDERED: DOCUSATE 100 MG CAP PO SCH (11:00)
[2022-05-17] MEDS ORDERED: LACTULOSE 20 GM/30 ML CUP PO SCH (11:00)
[2022-05-17] MEDS: MULTIVITAMINS, THERA 1 EACH TAB PO SCH (11:19)
[2022-05-17] MEDS: THIAMINE 100 MG TAB PO SCH ×2 (11:19→17:53)
--- NOTE | 2022-05-17 13:05 | P.PN ---
Progress Note - Text Progress Note Date: 05/17/22 Interval History: Patient was seen resting in bed and was directable and agreeable to speak with selling underwriter in her room., Patient is reporting that she is feeling better. She reports that she is able to speak with her sponsor. At this time, she is not reporting any suicidal or homicidal ideation, intention, and/or plan however is agreeable to going to the psychiatric unit to address her depression and her recent suicide attempt by cutting her wrists. She is not reporting any auditory or visual hallucinations. She is denying any paranoia or other delusions. She reports that she is slowly overcoming her withdrawal. She denies any issues regarding her sleep or appetite. Mental Status Exam: General Appearance: Patient appears to be stated age is alert, directable, and cooperative. Behavior: Patient is calmly seated without any agitated behavior. Speech: Patient's speech is fluent and nonpressured. Mood/Affect: Mood is improving mildly, affect is congruent and constricted. Suicidality/Homicidality: Patient denies having any suicidal or homicidal ideation intent or plan. Perceptions: Patient denies any visual hallucinations and denies any auditory hallucinations Though content/process: There is no evidence of any delusional thought content and thought process is linear and goal-directed. Memory and concentration: AOX3, grossly intact for the purposes of this session Judgment and insight: Improving mildly Vital Signs Temp 97.9 F 05/17/22 05:00 Pulse 71 05/17/22 07:41 Resp 16 05/17/22 05:00 BP 143/81 05/17/22 07:41 Pulse Ox 100 05/17/22 05:00 FiO2 Intake & Output 05/16/22 05/17/22 05/17/22 18:59 06:59 18:59 Intake Total 150 Balance 150 Weight 61.235 kg Intake: Intake, IV Titration 150 Amount Sodium Chloride 0.9% 1, 150 000 ml @ 150 mls/hr IV . Q6H40M [facility] Rx#:[id number] Other: Voiding Method Toilet # Voids 2 Laboratory Results - Last 24 Hours 05/16/22 07:51 WBC 4.95 RBC 4.25 Hgb 12.9 Hct 41.5 MCV 97.6 H MCH 30.4 MCHC 31.1 L RDW 12.2 Plt Count 304 MPV 9.1 L Immature Gran % (Auto) 0.4 Absolute Nucleated RBC 0 Neutrophils % 44.7 Lymphocytes % 44.2 Monocytes % 7.3 Eosinophils % 2.8 Basophils % 0.6 Immature Gran # 0.02 Neutrophils # 2.21 Lymphocytes # 2.19 Monocytes # 0.36 Eosinophils # 0.14 Basophils # 0.03 NRBC/100 WBC Diff 0 Assessment Major depressive disorder, recurrent, severe, without psychotic features Alcohol use disorder Cocaine use disorder Plan: -Continue your treatment for acute alcohol withdrawal. -At this time patient DOES meet criteria for inpatient psychiatric admission. Once medically stable, transfer to the psychiatric unit. -Would recommend the following medication changes/additions: No medication recommendations be made at this time. We will initiate antidepressants once medically cleared and admitted onto the psychiatric unit. -Continue 1:1 sitter for safety -Cannot leave AMA at this time. Patient will need a petition and certification if attempting to leave AMA. -When medically stable, patient is eligible for transfer to a psych bed when a vailable.
[2022-05-17 13:57] VITALS: BP 117/79; PULSE 88; RESP 18; TEMP 98.3
[2022-05-17] MEDS ORDERED: CEPHALEXIN 500 MG CAP PO SCH (16:00)
[2022-05-17] MEDS ORDERED: BACITRACIN ZINC 500 UNIT/GM OINT 28.4 GM TUBE TOPICAL SCH (16:00)
[2022-05-17 16:38] LABS: Basophils # (A) 0.1 k/uL (0-0.2); Basophils % (A) 2 %; Eosinophils # (A) 0.1 k/uL (0-0.7); Eosinophils % (A) 3 %; HCT 40.5 % (34.0-46.0); HGB 12.8 gm/dL (11.4-16.0); Lymphocytes # (A) 1.4 k/uL (1.0-4.8); Lymphocytes % (A) 38 %; MCHC 31.6 g/dL (31.0-37.0); MCV 101.2 fL (80.0-100.0); Mean Platelet Volume 7.2; Monocytes # (A) 0.2 k/uL (0-1.0); Monocytes % (A) 6 %; Neutrophils # (A) 1.9 k/uL (1.3-7.7); Neutrophils % (A) 49 %; Platelet Count 313 k/uL (150-450); RDW 12.2 % (11.5-15.5); WBC 3.8 k/uL (3.8-10.6)
[2022-05-17 16:54] LABS: ALT 41 U/L (4-34); AST 65 U/L (14-36); African American GFR (CKD) >90 (>60 ml/min/1.73 sqM); Albumin 3.2 g/dL (3.5-5.0); Albumin/Globulin Ratio 1.3; Alkaline Phosphatase 87 U/L (38-126); Anion Gap 3 mmol/L; Blood Urea Nitrogen 11 mg/dL (7-17); Calcium 8.3 mg/dL (8.4-10.2); Carbon Dioxide 27 mmol/L (22-30); Chloride 106 mmol/L (98-107); Globulin 2.5 g/dL; Glucose 103 mg/dL (74-99); Non-African American GFR(CKD) 82 (>60 ml/min/1.73 sqM); Potassium 5.2 mmol/L (3.5-5.1); Sodium 136 mmol/L (137-145); Total Bilirubin 0.2 mg/dL (0.2-1.3); Total Protein 5.7 g/dL (6.3-8.2)
--- NOTE | 2022-05-17 16:56 | P.DS ---
Providers Date of admission: 05/16/22 17:41 Expected date of discharge: 05/17/22 Attending physician: Aminata Maldonado MD Consults: 05/15/22 20:46 Consult Physician Routine Consulting Provider: Cole Jeronimo Consult Reason/Comments: Depression and suicide attempt Do you want consulting provider notified?: Yes Primary care physician: Stated None Hospital Course: History of present illness: 52-year-old female with past medical history significant for alcohol dependence disorder, depression and polysubstance abuse. Patient was brought into the ED with police escort for suicide attempt. Patient had lacerations over bilateral wrists which was sutured and attended to in the ED. Patient was intoxicated with alcohol unable to provide any meaningful history. She doesn't make any eye contact she doesn't talk she doesn't cooperate with exam or interview. No further information available at this time Blood work shows elevated AST ALT slightly. Alcohol level of 348, urine drug screen showed positive for benzos and cocaine, rest of her labs are unremarkable. Physical examination on discharge: General: non toxic, no distress, appears at stated age. Derm: warm, dry. Head: atraumatic, normocephalic, symmetric Eyes: EOMI, no lid lag, anicteric sclera Mouth: no lip lesion, mucus membranes moist Cardiovascular: S1S2 reg, no murmur, positive posterior tibial pulse bilateral, Lungs: CTA bilateral, no rhonchi, no rales , no accessory muscle use Abdominal: soft, nontender to palpation, no guarding, no appreciable organomegaly Ext: no gross muscle atrophy, no edema, no contractures Neuro: CN II-XI grossly intact, no focal neuro deficits Psych: Alert, oriented, appropriate affect. Hospital course: #Suicide attempt by self-inflicted wounds bilateral wrists -Status post suturing in the emergency room -Resume po Keflex. -Psychiatry consulted. #Alcohol intoxication monitor for alcohol withdrawal syndrome #Alcohol dependence disorder CIWA scale today 5. Thiamine and folic acid. IV fluid hydration. medically stable for discharge. #Polysubstance abuse Alcohol, cocaine, benzo Patient Condition at Discharge: Stable Plan - Discharge Summary Discharge Rx Participant: No New Discharge Prescriptions: New Thiamine [Vitamin B-1] 100 mg PO BID@1200,1700 tab Cephalexin [Keflex] 500 mg PO TID cap Multivitamins, Thera [Multivitamin (formulary)] 1 each PO DAILY@1200 tab Continue Lactulose 20 gm PO DAILY Folic Acid 1 mg PO DAILY estradioL [Estradiol] 0.5 mg PO Q48H Dicyclomine [Bentyl] 10 mg PO BID PRN PRN Reason: Constipation medroxyPROGESTERone [Provera] 2.5 mg PO DAILY Omeprazole [PriLOSEC] 20 mg PO AC-BID Albuterol Sulfate [Proair Hfa] 1 puff INHALATION RT-Q4H PRN PRN Reason: Shortness Of Breath Naproxen [EC-Naprosyn] 500 mg PO BID PRN PRN Reason: Pain Miconazole 2% Cream [Monistat-Derm] 1 applic TOPICAL BID Levothyroxine Sodium [Synthroid] 100 mcg PO DAILY bisacodyL [Bisacodyl] 5 mg PO DAILY PRN PRN Reason: Constipation Docusate [Colace] 100 mg PO DAILY buPROPion XL [Wellbutrin XL] 150 mg PO DAILY #30 tab busPIRone HCl [Buspar] 10 mg PO BID 30 Days #60 tab Denta Paste 1 applic PO DAILY Fluticasone Nasal Cove [Flonase Nasal Cove] 1 - 2 spray EA NOSTRIL DAILY Cyclobenzaprine [Flexeril] 10 mg PO TID PRN PRN Reason: Muscle Spasm hydrOXYzine pamoate [Vistaril] 50 mg PO HS PRN 30 Days #30 cap PRN Reason: Insomnia Discharge Medication List Dicyclomine [Bentyl] 10 mg PO BID PRN 04/27/20 [History] Folic Acid 1 mg PO DAILY 04/27/20 [History] Lactulose 20 gm PO DAILY 04/27/20 [History] Omeprazole [PriLOSEC] 20 mg PO AC-BID 04/27/20 [History] estradioL [Estradiol] 0.5 mg PO Q48H 04/27/20 [History] medroxyPROGESTERone [Provera] 2.5 mg PO DAILY 04/27/20 [History] Albuterol Sulfate [Proair Hfa] 1 puff INHALATION RT-Q4H PRN 05/11/22 [History] Cyclobenzaprine [Flexeril] 10 mg PO TID PRN 05/11/22 [History] Docusate [Colace] 100 mg PO DAILY 05/11/22 [History] Fluticasone Nasal Cove [Flonase Nasal Cove] 1 - 2 spray EA NOSTRIL DAILY 05/11/22 [History] Levothyroxine Sodium [Synthroid] 100 mcg PO DAILY 05/11/22 [History] Miconazole 2% Cream [Monistat-Derm] 1 applic TOPICAL BID 05/11/22 [History] Naproxen [EC-Naprosyn] 500 mg PO BID PRN 05/11/22 [History] bisacodyL [Bisacodyl] 5 mg PO DAILY PRN 05/11/22 [History] buPROPion XL [Wellbutrin XL] 150 mg PO DAILY #30 tab 05/12/22 [Rx] busPIRone HCl [Buspar] 10 mg PO BID 30 Days #60 tab 05/12/22 [Rx] hydrOXYzine pamoate [Vistaril] 50 mg PO HS PRN 30 Days #30 cap 05/12/22 [Rx] Denta Paste 1 applic PO DAILY 05/16/22 [History] Cephalexin [Keflex] 500 mg PO TID cap 05/17/22 [Rx] Multivitamins, Thera [Multivitamin (formulary)] 1 each PO DAILY@1200 tab 05/17/22 [Rx] Thiamine [Vitamin B-1] 100 mg PO BID@1200,1700 tab 05/17/22 [Rx] Follow up Appointment(s)/Referral(s): None,Stated [Primary Care Provider] - 1-2 days Discharge Disposition: TRANSFER TO PSYCH HOSP/UNIT
[2022-05-17] MEDS ORDERED: MICONAZOLE NITRATE 2% CREAM 14 GM TUBE TOPICAL SCH (21:00)
[2022-05-18] MEDS ORDERED: LEVOTHYROXINE 100 MCG TAB PO SCH (06:30)
[2022-05-18] MEDS ORDERED: PANTOPRAZOLE 40 MG TABLET PO SCH (07:30)
[2022-05-18] MEDS ORDERED: FOLIC ACID 1 MG TAB PO SCH (09:00)
[2022-05-18] MEDS ORDERED: [UNRECOGNIZED DRUG - OTHER] PO SCH (09:00)
[2022-05-18] MEDS ORDERED: FLUTICASONE 50MCG/SPRAY NASAL 16GM EA NOSTRIL SCH (09:00)
== END 2022-05-17 18:52 | DRG 605 ==
LOC: EC 18:57 → 5NMEDONC 20:46 → OBSVTOIN 05-16 17:41 → 5NMEDONC 05-16 21:54
PROVIDERS: ADMIT Internal Medicine; ATTEND Internal Medicine
PROC: HZ2ZZZZ Detoxification Services for Substance Abuse Treatment (ICD-10-PCS; principal; 2022-05-16)
PROC: 0HQEXZZ Repair Left Lower Arm Skin, External Approach (ICD-10-PCS; 2022-05-16)
PROC: 0HQDXZZ Repair Right Lower Arm Skin, External Approach (ICD-10-PCS; 2022-05-16)
DX: S61.512A Laceration without foreign body of left wrist, initial encounter (principal); F33.2 Major depressive disorder, recurrent severe without psychotic features; F17.210 Nicotine dependence, cigarettes, uncomplicated; Z20.822 Contact with and (suspected) exposure to COVID-19; F14.10 Cocaine abuse, uncomplicated; F10.229 Alcohol dependence with intoxication, unspecified; S61.511A Laceration without foreign body of right wrist, initial encounter; F41.0 Panic disorder [episodic paroxysmal anxiety]; Y90.8 Blood alcohol level of 240 mg/100 ml or more; K21.9 Gastro-esophageal reflux disease without esophagitis; M19.90 Unspecified osteoarthritis, unspecified site; F13.10 Sedative, hypnotic or anxiolytic abuse, uncomplicated; Z79.890 Hormone replacement therapy; Z79.899 Other long term (current) drug therapy; Z80.3 Family history of malignant neoplasm of breast; Z91.51 Personal history of suicidal behavior; Z91.52 Personal history of nonsuicidal self-harm
CPT/HCPCS: 12002; 36415; 80053; 80143; 80179; 80306; 80320; 81025; 85025; 87635; 90471; 90715; 96361; 96372; 96374; 99285

== ENCOUNTER 2022-05-17 18:14 | Inpatient (IN) | payer MEDICAID, OTHER ==
[2022-05-17] MEDS ORDERED: ACETAMINOPHEN TAB 325 MG TAB PO PRN (18:21)
[2022-05-17] MEDS ORDERED: HALOPERIDOL LACTATE 5 MG/ML 1 ML VIAL IM PRN (18:21)
[2022-05-17] MEDS ORDERED: hydrOXYzine HCL 50 MG/ML 1 ML VIAL IM PRN (18:23)
[2022-05-17] MEDS ORDERED: ALBUTEROL INHALER 60 PUFF/8 GM INHALER (MHU) INHALATION PRN (18:26)
[2022-05-17] MEDS: CEPHALEXIN 500 MG CAP PO SCH (20:02)
[2022-05-17] MEDS: busPIRone HCl 10 MG TAB PO SCH (20:02)
[2022-05-17] MEDS: hydrOXYzine pamoate 25 MG CAP PO PRN (20:48)
[2022-05-17] MEDS: MICONAZOLE NITRATE 2% CREAM 14 GM TUBE TOPICAL SCH (20:49)
[2022-05-17] MEDS: BACITRACIN OINT 1 EACH PACKET TOPICAL PRN (20:49)
[2022-05-17] MEDS ORDERED: traZODone HCL 100 MG TAB PO SCH (21:00)
[2022-05-18] MEDS: hydrOXYzine pamoate 25 MG CAP PO PRN ×5 (00:35→22:44)
[2022-05-18] MEDS: LEVOTHYROXINE 100 MCG TAB PO SCH (06:52)
[2022-05-18] MEDS: NICOTINE 14MG/24HR PATCH TRANSDERM SCH (09:24)
[2022-05-18] MEDS: PANTOPRAZOLE 40 MG TABLET PO SCH ×2 (09:25→16:37)
[2022-05-18] MEDS: CEPHALEXIN 500 MG CAP PO SCH ×3 (09:26→20:20)
[2022-05-18] MEDS: LACTULOSE 20 GM/30 ML CUP PO SCH (09:26)
[2022-05-18] MEDS: FOLIC ACID 1 MG TAB PO SCH (09:26)
[2022-05-18] MEDS: MICONAZOLE NITRATE 2% CREAM 14 GM TUBE TOPICAL SCH ×2 (09:26→20:22)
[2022-05-18] MEDS: busPIRone HCl 10 MG TAB PO SCH (09:26)
[2022-05-18] MEDS: FLUTICASONE 50MCG/SPRAY NASAL 16GM EA NOSTRIL SCH ×2 (09:27→15:34)
[2022-05-18] MEDS ORDERED: THIAMINE 100 MG/ML 2 ML VIAL IM STA (14:23)
[2022-05-18] MEDS ORDERED: LORazepam 2 MG/ML INJ IV PRN ×3 (14:23)
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
[2022-05-18] MEDS: THIAMINE 100 MG TAB PO SCH ×3 (14:49→16:37)
[2022-05-18] MEDS: MULTIVITAMINS, THERA 1 EACH TAB PO SCH (14:49)
[2022-05-18] MEDS: BACITRACIN OINT 1 EACH PACKET TOPICAL PRN (20:26)
[2022-05-18] MEDS ORDERED: AMITRIPTYLINE HCL 50 MG TAB PO SCH (21:00)
[2022-05-19] MEDS: LEVOTHYROXINE 100 MCG TAB PO SCH (07:14)
[2022-05-19] MEDS: NICOTINE 14MG/24HR PATCH TRANSDERM SCH (09:28)
[2022-05-19] MEDS: FLUTICASONE 50MCG/SPRAY NASAL 16GM EA NOSTRIL SCH (09:29)
[2022-05-19] MEDS: FOLIC ACID 1 MG TAB PO SCH (09:30)
[2022-05-19] MEDS: PANTOPRAZOLE 40 MG TABLET PO SCH ×2 (09:30→17:33)
[2022-05-19] MEDS: MULTIVITAMINS, THERA 1 EACH TAB PO SCH (09:30)
[2022-05-19] MEDS: CEPHALEXIN 500 MG CAP PO SCH ×3 (09:30→20:00)
[2022-05-19] MEDS: THIAMINE 100 MG TAB PO SCH ×2 (09:31→17:33)
[2022-05-19] MEDS: LACTULOSE 20 GM/30 ML CUP PO SCH (09:32)
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
[2022-05-19] MEDS: hydrOXYzine pamoate 25 MG CAP PO PRN ×2 (14:43→20:00)
[2022-05-19] MEDS: OXYMETAZOLINE 0.05% NASL SPRAY 1 SPRAY BOTTLE NASAL SCH ×2 (16:45→19:56)
[2022-05-19] MEDS: MICONAZOLE NITRATE 2% CREAM 14 GM TUBE TOPICAL SCH ×2 (16:45→19:58)
--- NOTE | 2022-05-19 19:39 | P.PN ---
Progress Note - Text Progress Note Date: 05/19/22 Interval History: Patient was found in the hallway talking to peers, and was directable and agreeable to speak with rfp writer in the office. She reports feeling "anxious, emotional, uneasy, jittery". She went to two groups today, but went to lay down for a nap because she slept poorly last night. She denies suicidal or homicidal ideation, intention, and/or plan. She denies any auditory or visual hallucinations, does not appear to be attending to internal stimuli on assessment. She reports frustration over not being able to sleep last night after taking the amitriptyline 50 mg QHS, Haldol 4 mg po x 1, Vistaril 50 mg x 2 last night. She has a history of eating disorder and is concerned about weight gain. Mental Status Exam: General Appearance: Patient appears to be stated age, fair hygiene, is dressed in clean casual attire. Orientation: Alert, oriented to person, place, time and situation. Behavior: Patient is seated without any agitated behavior. Speech: Patient's speech is fluent and nonpressured. Mood/Affect: Patient reports their mood is "anxious, emotional, jittery", affect is congruent and constricted. Suicidality/Homicidality: Patient denies having any homicidal ideation intent or plan. Denies any suicidal ideations intent or plan. Perceptions: Patient denies any visual hallucinations and denies any auditory hallucinations. Though content/process: There is no evidence of any delusional thought content and thought process is linear and goal-directed. Memory and concentration: Grossly intact for the purposes of this session. Judgment and insight: Fair Vital Signs 05/17/22 05/18/22 05/18/22 19:57 02:11 14:27 Temperature 97.6 F 97.4 F L Pulse Rate [ 86 96 94 Right] Respiratory 18 14 16 Rate Blood Pressure 137/91 133/83 133/85 [Right Arm] O2 Sat by Pulse 98 Oximetry 05/19/22 06:40 Temperature 97.4 F L Pulse Rate [ 62 Right] Respiratory 16 Rate Blood Pressure 126/69 [Right Arm] O2 Sat by Pulse Oximetry Assessment Major depressive disorder, recurrent, severe without psychotic features Generalized anxiety disorder, with panic attacks Rule out PTSD Alcohol use disorder, severe Alcohol withdrawal, mild Cocaine use disorder, mild Cannabis use disorder, mild Plan: -Patient is admitted under voluntary status to MHU for stabilization of psychiatric symptoms and safety. Patient has signed adult voluntary form and medication consent and is placed in patient's chart. -Medications: Decrease Librium 20 mg TID to 20 mg BID starting tomorrow morning for alcohol withdrawal; HOLD for oversedation or SBP less than 100, DBP less than 60, HR less than 60. Increase Amitriptyline to 100 mg QHS for depression/anxiety/alcoholism/sleep/pain, with plan to titrate as needed. Start Seroquel 50 mg QHS for augmentation/sleep/PTSD. -Ativan and Haldol PRN for agitation/aggression -Started thiamine, MVM for etoh use -[facility] protocol with Ativan PRN for ETOH withdrawal -Patient was counselled on substance abuse and desired to cut back on use. She is interested in residential substance treatment program following discharge. -Patient was informed of the risks, benefits and side effects of the medication and patient verbally consented to taking the medications. Patient signed med consent form and was placed in chart. -Internal Medicine consult to perform medical evaluation and physical. -NRT - nicotine patch -SW on board for discharge planning. Encourage patient to participate in groups to work on coping skills.
[2022-05-19] MEDS: AMITRIPTYLINE HCL 50 MG TAB PO SCH (19:58)
[2022-05-19] MEDS: BACITRACIN OINT 1 EACH PACKET TOPICAL PRN (20:01)
[2022-05-19] MEDS ORDERED: QUEtiapine 50 MG TAB PO SCH (21:00)
[2022-05-19] MEDS ORDERED: QUEtiapine 50 MG TAB PO PRN (22:44)
[2022-05-20] MEDS: LEVOTHYROXINE 100 MCG TAB PO SCH (06:48)
[2022-05-20] MEDS: NICOTINE 14MG/24HR PATCH TRANSDERM SCH (08:12)
[2022-05-20] MEDS: PANTOPRAZOLE 40 MG TABLET PO SCH ×2 (08:13→15:46)
[2022-05-20] MEDS: LACTULOSE 20 GM/30 ML CUP PO SCH (08:13)
[2022-05-20] MEDS: THIAMINE 100 MG TAB PO SCH ×2 (08:14→15:46)
[2022-05-20] MEDS: FOLIC ACID 1 MG TAB PO SCH (08:14)
[2022-05-20] MEDS: CEPHALEXIN 500 MG CAP PO SCH ×3 (08:14→20:55)
[2022-05-20] MEDS: FLUTICASONE 50MCG/SPRAY NASAL 16GM EA NOSTRIL SCH (08:14)
[2022-05-20] MEDS: MICONAZOLE NITRATE 2% CREAM 14 GM TUBE TOPICAL SCH ×2 (08:15→20:56)
[2022-05-20] MEDS: OXYMETAZOLINE 0.05% NASL SPRAY 1 SPRAY BOTTLE NASAL SCH ×3 (08:16→20:57)
[2022-05-20] MEDS: MULTIVITAMINS, THERA 1 EACH TAB PO SCH (08:16)
[2022-05-20] MEDS: hydrOXYzine pamoate 25 MG CAP PO PRN ×2 (12:05→18:55)
[2022-05-20] MEDS: NAPROXEN 250 MG TAB PO PRN (12:06)
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
[2022-05-20] MEDS: bisacodyL 5 MG TABLET.DR PO PRN (18:52)
[2022-05-20] MEDS: AMITRIPTYLINE HCL 50 MG TAB PO SCH (20:56)
[2022-05-20] MEDS ORDERED: QUEtiapine 50 MG TAB PO SCH (21:00)
[2022-05-21] MEDS: LEVOTHYROXINE 100 MCG TAB PO SCH (06:35)
[2022-05-21] MEDS: FLUTICASONE 50MCG/SPRAY NASAL 16GM EA NOSTRIL SCH (09:01)
[2022-05-21] MEDS: LACTULOSE 20 GM/30 ML CUP PO SCH (09:01)
[2022-05-21] MEDS: OXYMETAZOLINE 0.05% NASL SPRAY 1 SPRAY BOTTLE NASAL SCH ×2 (09:02→21:32)
[2022-05-21] MEDS: MICONAZOLE NITRATE 2% CREAM 14 GM TUBE TOPICAL SCH ×2 (09:02→20:16)
[2022-05-21] MEDS: NICOTINE 14MG/24HR PATCH TRANSDERM SCH (09:03)
[2022-05-21] MEDS: FOLIC ACID 1 MG TAB PO SCH (09:04)
[2022-05-21] MEDS: MULTIVITAMINS, THERA 1 EACH TAB PO SCH (09:04)
[2022-05-21] MEDS: PANTOPRAZOLE 40 MG TABLET PO SCH ×2 (09:04→17:47)
[2022-05-21] MEDS: QUEtiapine 25 MG TAB PO SCH ×2 (09:04→12:51)
[2022-05-21] MEDS: CEPHALEXIN 500 MG CAP PO SCH ×3 (09:04→20:15)
[2022-05-21] MEDS: hydrOXYzine pamoate 25 MG CAP PO PRN ×2 (09:06→16:35)
[2022-05-21] MEDS: THIAMINE 100 MG TAB PO SCH ×2 (09:08→17:47)
[2022-05-21] MEDS: BACITRACIN OINT 1 EACH PACKET TOPICAL PRN (09:10)
--- NOTE | 2022-05-21 15:35 | P.PN ---
Progress Note - Text Progress Note Date: 05/21/22 Interval History: Patient was found laying down in her room reading, and was directable and agreeable to speak with technical report writer in the office. She reports feeling "better" today. She reports the anxiety is improving but she did require a PRN Vistaril 50 mg po x 1 this morning and PRN Haldol 4 mg po x 1 this afternoon. She reports her mood is improved, and the medications are helping slow down her racing thoughts and helping her focus. She admits to feeling "a little depressed". She denies suicidal or homicidal ideation, intention, and/or plan. She denies any auditory or visual hallucinations, does not appear to be attending to internal stimuli on assessment. She reports sleeping better last night, took 45 minutes to fall asleep, and reports she slept for 6 hours total. Mental Status Exam: General Appearance: Patient appears to be stated age, improving hygiene, is wendy ssed in hospital gown. Orientation: Alert, oriented to person, place, time and situation. Behavior: Patient is seated without any agitated behavior. Speech: Patient's speech is fluent and nonpressured. Mood/Affect: Patient reports their mood is "anxious,unsettled", affect is congruent, improving mildly. Suicidality/Homicidality: Patient denies having any homicidal ideation intent or plan. Denies any suicidal ideations intent or plan. Perceptions: Patient denies any visual hallucinations and denies any auditory hallucinations. Though content/process: There is no evidence of any delusional thought content, and thought process is anxious and ruminative. Memory and concentration: Grossly intact for the purposes of this session. Judgment and insight: Fair Vital Signs (72 hours) 05/17/22 05/18/22 05/18/22 19:57 02:11 14:27 Temperature 97.6 F 97.4 F L Pulse Rate [ 86 96 94 Right] Respiratory 18 14 16 Rate Blood Pressure 137/91 133/83 133/85 [Right Arm] O2 Sat by Pulse 98 Oximetry 05/19/22 05/19/22 05/20/22 06:40 20:04 06:57 Temperature 97.4 F L 97 F L Pulse Rate [ 62 100 63 Right] Respiratory 16 16 Rate Blood Pressure 126/69 121/81 104/69 [Right Arm] O2 Sat by Pulse Oximetry Assessment Major depressive disorder, recurrent, severe without psychotic features Generalized anxiety disorder, with panic attacks Rule out PTSD Alcohol use disorder, severe Alcohol withdrawal, mild Cocaine use disorder, mild Cannabis use disorder, mild Plan: -Patient is admitted under voluntary status to [facility] for stabilization of psychiatric symptoms and safety. Patient has signed adult voluntary form and medication consent and is placed in patient's chart. -Medications: Decrease Librium to 10 mg BID x 3 doses, then discontinue, for alcohol withdrawal; HOLD for oversedation or SBP less than 100, DBP less than 60, HR less than 60. Continue Amitriptyline 100 mg QHS for depression/anxiety/alcoholism/sleep/pain, with plan to titrate as needed. Increase Seroquel to 200 mg QHS plus 50 mg BID (8am, noon) for augmentation/sleep/PTSD. Continue Hydroxyzine 50 mg QID PRN for anxiety. -Ativan and Haldol PRN for agitation/aggression -Continue thiamine, MVM for etoh use -Discontinue CIWA protocol with Ativan PRN for ETOH withdrawal -Patient was counseled on substance abuse and desired to cut back on use. She is interested in residential substance treatment program following discharge. -Patient was informed of the risks, benefits and side effects of the medication and patient verbally consented to taking the medications. Patient signed med consent form and was placed in chart. -NRT - nicotine patch -SW on board for discharge planning. Encourage patient to participate in groups to work on coping skills.
[2022-05-21] MEDS: bisacodyL 5 MG TABLET.DR PO PRN (17:49)
[2022-05-21] MEDS: QUEtiapine 200 MG TAB PO SCH (20:15)
[2022-05-21] MEDS: AMITRIPTYLINE HCL 50 MG TAB PO SCH (20:15)
[2022-05-22] MEDS: LEVOTHYROXINE 100 MCG TAB PO SCH (06:24)
[2022-05-22] MEDS: FOLIC ACID 1 MG TAB PO SCH (08:17)
[2022-05-22] MEDS: QUEtiapine 50 MG TAB PO SCH ×3 (08:17→14:38)
[2022-05-22] MEDS: CEPHALEXIN 500 MG CAP PO SCH ×3 (08:18→20:37)
[2022-05-22] MEDS: THIAMINE 100 MG TAB PO SCH ×2 (08:18→16:41)
[2022-05-22] MEDS: NICOTINE 14MG/24HR PATCH TRANSDERM SCH (08:18)
[2022-05-22] MEDS: PANTOPRAZOLE 40 MG TABLET PO SCH ×2 (08:18→16:41)
[2022-05-22] MEDS: FLUTICASONE 50MCG/SPRAY NASAL 16GM EA NOSTRIL SCH (08:21)
[2022-05-22] MEDS: LACTULOSE 20 GM/30 ML CUP PO SCH (08:22)
[2022-05-22] MEDS: OXYMETAZOLINE 0.05% NASL SPRAY 1 SPRAY BOTTLE NASAL SCH ×2 (08:23→20:39)
[2022-05-22] MEDS: MICONAZOLE NITRATE 2% CREAM 14 GM TUBE TOPICAL SCH ×2 (08:23→21:18)
--- NOTE | 2022-05-22 12:21 | P.PN ---
Progress Note - Text Progress Note Date: 05/22/22 Interval History: Patient was seen resting in bed and was directable and agreeable to speak with designer/writer in the office. Reports that she is feeling significantly better in regards to her mood. She does express a strong desire to go to rehab following this inpatient psychiatric admission. She is currently not reporting any suicidal or homicidal ideation, intention, and/or plan. She is not reporting any auditory or visual hallucinations. She denies any paranoia or other delusions. The patient does express concern about going home prior to going to rehab considering her addiction and her recent attempt at suicide by cutting her wrists. She has been adherent with her medications and is not reporting any significant side effects at this time. Mental Status Exam: General Appearance: Patient appears to be stated age is alert, directable, and cooperative. Behavior: Patient is calmly seated without any agitated behavior. Speech: Patient's speech is fluent and nonpressured. Mood/Affect: Mood is improving mildly, affect is congruent and constricted. Suicidality/Homicidality: Patient denies having any suicidal or homicidal ideation intent or plan. Perceptions: Patient denies any visual hallucinations and denies any auditory hallucinations Though content/process: There is no evidence of any delusional thought content and thought process is linear and goal-directed. Memory and concentration: AOX3, grossly intact for the purposes of this session Judgment and insight: Improving mildly Vital Signs Temp 98 F 05/22/22 06:41 Pulse 72 05/22/22 06:41 Resp 16 05/22/22 06:41 BP 101/62 05/22/22 06:41 Pulse Ox 98 05/17/22 19:57 FiO2 Assessment Major depressive disorder, recurrent, severe without psychotic features Generalized anxiety disorder, with panic attacks Rule out PTSD Alcohol use disorder, severe Alcohol withdrawal, mild Cocaine use disorder, mild Cannabis use disorder, mild Plan: -Patient continues to meet criteria for inpatient psychiatric admission for symptom stabilization and safety. Patient has signed adult voluntary form and medication consent and was placed in patient's chart. -Medications: Amitriptyline 100 mg by mouth at bedtime for depression/anxiety/sleep Seroquel 50 mg by mouth twice a day and 200 mg by mouth at bedtime for augmentation/insomnia Vistaril when necessary for anxiety Librium to be tapered today. -When necessary Ativan and Haldol for agitation/aggression. -NRT - nicotine patch -SW on board for discharge planning. Encouraged the patient to participate in milieu.
[2022-05-22] MEDS: MULTIVITAMINS, THERA 1 EACH TAB PO SCH (12:35)
[2022-05-22] MEDS: hydrOXYzine pamoate 25 MG CAP PO PRN ×2 (12:42→18:59)
[2022-05-22] MEDS: bisacodyL 5 MG TABLET.DR PO PRN (16:42)
[2022-05-22] MEDS: QUEtiapine 200 MG TAB PO SCH (20:37)
[2022-05-22] MEDS: AMITRIPTYLINE HCL 50 MG TAB PO SCH (20:38)
[2022-05-23] MEDS: LEVOTHYROXINE 100 MCG TAB PO SCH (06:22)
[2022-05-23] MEDS: LACTULOSE 20 GM/30 ML CUP PO SCH (07:55)
[2022-05-23] MEDS: QUEtiapine 50 MG TAB PO SCH ×2 (07:58→13:49)
[2022-05-23] MEDS: AMITRIPTYLINE HCL 50 MG TAB PO SCH (07:58)
[2022-05-23] MEDS: MULTIVITAMINS, THERA 1 EACH TAB PO SCH (07:58)
[2022-05-23] MEDS: THIAMINE 100 MG TAB PO SCH ×2 (07:58→17:30)
[2022-05-23] MEDS: CEPHALEXIN 500 MG CAP PO SCH ×3 (07:58→20:28)
[2022-05-23] MEDS: FOLIC ACID 1 MG TAB PO SCH (07:58)
[2022-05-23] MEDS: PANTOPRAZOLE 40 MG TABLET PO SCH ×2 (07:58→17:30)
[2022-05-23] MEDS: NICOTINE 14MG/24HR PATCH TRANSDERM SCH (07:59)
[2022-05-23] MEDS: OXYMETAZOLINE 0.05% NASL SPRAY 1 SPRAY BOTTLE NASAL SCH (08:02)
[2022-05-23] MEDS: MICONAZOLE NITRATE 2% CREAM 14 GM TUBE TOPICAL SCH (08:02)
[2022-05-23] MEDS: FLUTICASONE 50MCG/SPRAY NASAL 16GM EA NOSTRIL SCH (08:02)
--- NOTE | 2022-05-23 12:37 | P.PN ---
Progress Note - Text Progress Note Date: 05/23/22 Interval History: Patient was seen resting in bed and was directable and agreeable to speak with newspaper writer in the office. Reports that she continues to feel better but has been experiencing a significant increase in anxiety. She expresses feeling "like my skin is constantly crawling." She does acknowledge that anxiety will be present as she is coming off of alcohol but expresses she was feeling a very strong desire to use alcohol today. She is otherwise denying any suicidal or homicidal ideation, intention, and/or plan. She reports no auditory or visual hallucinations. She has been adherent with her medications and denies any side effects at this time. Mental Status Exam: General Appearance: Patient appears to be stated age is alert, directable, and cooperative. Behavior: Patient is calmly seated without any agitated behavior. Speech: Patient's speech is fluent and nonpressured. Mood/Affect: Mood is "nervous, like my skin is crawling." Affect is anxious. Suicidality/Homicidality: Patient denies having any suicidal or homicidal ideation intent or plan. Perceptions: Patient denies any visual hallucinations and denies any auditory hallucinations Though content/process: There is no evidence of any delusional thought content and thought process is linear and goal-directed. Memory and concentration: AOX3, grossly intact for the purposes of this session Judgment and insight: Improving mildly Vital Signs Temp 97.6 F 05/23/22 06:51 Pulse 63 05/23/22 06:51 Resp 16 05/23/22 06:51 BP 105/67 05/23/22 06:51 Pulse Ox 98 05/17/22 19:57 FiO2 Assessment Major depressive disorder, recurrent, severe without psychotic features Generalized anxiety disorder, with panic attacks Rule out PTSD Alcohol use disorder, severe Alcohol withdrawal, mild Cocaine use disorder, mild Cannabis use disorder, mild Plan: -Patient continues to meet criteria for inpatient psychiatric admission for symptom stabilization and safety. Patient has signed adult voluntary form and medication consent and was placed in patient's chart. -As the patient has had severe attempt after being previously cleared, we will hold the patient until transfer to rehab. -Medications: Amitriptyline 100 mg by mouth at bedtime for depression/anxiety/sleep Seroquel 50 mg by mouth twice a day and 200 mg by mouth at bedtime for augmentation/insomnia Vistaril when necessary for anxiety -When necessary Ativan and Haldol for agitation/aggression. -NRT - nicotine patch -SW on board for discharge planning. Encouraged the patient to participate in milieu.
[2022-05-23] MEDS: hydrOXYzine pamoate 25 MG CAP PO PRN ×2 (13:49→20:31)
[2022-05-23] MEDS: bisacodyL 5 MG TABLET.DR PO PRN (13:50)
[2022-05-23] MEDS: MAG HYDROX/AL HYDROX/SIMETH 30 ML CUP PO PRN (17:52)
[2022-05-23] MEDS: QUEtiapine 200 MG TAB PO SCH (20:27)
[2022-05-24] MEDS: MICONAZOLE NITRATE 2% CREAM 14 GM TUBE TOPICAL SCH ×3 (03:10→20:50)
[2022-05-24] MEDS: OXYMETAZOLINE 0.05% NASL SPRAY 1 SPRAY BOTTLE NASAL SCH ×3 (03:10→20:50)
[2022-05-24] MEDS: hydrOXYzine pamoate 25 MG CAP PO PRN ×3 (04:06→20:47)
[2022-05-24] MEDS: LEVOTHYROXINE 100 MCG TAB PO SCH (06:17)
[2022-05-24] MEDS: CEPHALEXIN 500 MG CAP PO SCH ×3 (08:59→20:45)
[2022-05-24] MEDS: QUEtiapine 50 MG TAB PO SCH ×2 (08:59→11:25)
[2022-05-24] MEDS: THIAMINE 100 MG TAB PO SCH ×2 (08:59→15:55)
[2022-05-24] MEDS: PANTOPRAZOLE 40 MG TABLET PO SCH ×2 (08:59→15:55)
[2022-05-24] MEDS: FLUTICASONE 50MCG/SPRAY NASAL 16GM EA NOSTRIL SCH (08:59)
[2022-05-24] MEDS: LACTULOSE 20 GM/30 ML CUP PO SCH (09:00)
[2022-05-24] MEDS: FOLIC ACID 1 MG TAB PO SCH (09:00)
[2022-05-24] MEDS: NICOTINE 14MG/24HR PATCH TRANSDERM SCH (09:03)
[2022-05-24] MEDS: MULTIVITAMINS, THERA 1 EACH TAB PO SCH (11:25)
[2022-05-24 12:36] LABS: HCT 39.4 % (34.0-46.0); HGB 12.8 gm/dL (11.4-16.0); MCH 32.8 pg (25.0-35.0); MCHC 32.4 g/dL (31.0-37.0); MCV 101.1 fL (80.0-100.0); Platelet Count 393 k/uL (150-450); RDW 12.6 % (11.5-15.5); WBC 5.5 k/uL (3.8-10.6)
[2022-05-24 12:46] LABS: Albumin 4.1 g/dL (3.5-5.0); Calcium 9.2 mg/dL (8.4-10.2); Potassium 4.6 mmol/L (3.5-5.1); Total Bilirubin 0.2 mg/dL (0.2-1.3); Total Protein 6.9 g/dL (6.3-8.2)
--- NOTE | 2022-05-24 13:23 | P.PN ---
Progress Note - Text Progress Note Date: 05/24/22 Interval History: Patient was seen wandering the hallways and was directable and agreeable to speak with screenplay writer in the office. The patient continues to report elevated anxiety and appears to refocus on her medications. She does express concerns with her ability to sleep. She is otherwise not reporting any suicidal or homicidal ideation, intention, and/or plan. She is not reporting any auditory or visual hallucinations. She is denying any paranoia or delusions. She reports that she contacted [facility] and then sent a packet over to our social work team to work on. She is looking forward to continuing her treatment in rehab. Mental Status Exam: General Appearance: Patient appears to be stated age is alert, directable, and cooperative. Behavior: Patient is calmly seated without any agitated behavior. Speech: Patient's speech is fluent and nonpressured. Mood/Affect: Mood is "still anxious." Affect is anxious. Suicidality/Homicidality: Patient denies having any suicidal or homicidal ideation intent or plan. Perceptions: Patient denies any visual hallucinations and denies any auditory hallucinations Though content/process: There is no evidence of any delusional thought content and thought process is linear and goal-directed. Memory and concentration: AOX3, grossly intact for the purposes of this session Judgment and insight: Improving mildly Vital Signs Temp 98.1 F 05/24/22 04:13 Pulse 92 05/24/22 09:05 Resp 14 05/24/22 04:13 BP 118/71 05/24/22 11:29 Pulse Ox 98 05/17/22 19:57 FiO2 Laboratory Results - Last 24 Hours 05/24/22 05/24/22 12:02 12:02 WBC 5.5 RBC 3.90 Hgb 12.8 Hct 39.4 MCV 101.1 H MCH 32.8 MCHC 32.4 RDW 12.6 Plt Count 393 MPV 7.0 Sodium 136 L Potassium 4.6 Chloride 99 Carbon Dioxide 32 H Anion Gap 5 BUN 11 Creatinine 0.99 Est GFR (CKD-EPI)AfAm 77 Est GFR (CKD-EPI)NonAf 66 Glucose 99 Calcium 9.2 Total Bilirubin 0.2 AST 50 H ALT 52 H Alkaline Phosphatase 89 Total Protein 6.9 Albumin 4.1 Assessment Major depressive disorder, recurrent, severe without psychotic features Generalized anxiety disorder, with panic attacks Rule out PTSD Alcohol use disorder, severe Alcohol withdrawal, mild Cocaine use disorder, mild Cannabis use disorder, mild Plan: -Patient continues to meet criteria for inpatient psychiatric admission for symptom stabilization and safety. Patient has signed adult voluntary form and medication consent and was placed in patient's chart. -As the patient has had severe attempt after being previously cleared, we will hold the patient until transfer to rehab. -Medications: Amitriptyline 100 mg by mouth at bedtime for depression/anxiety/sleep Seroquel 50 mg by mouth twice a day but increase night time Seroquel to 300 mg by mouth at bedtime for augmentation/insomnia Vistaril when necessary for anxiety -When necessary Ativan and Haldol for agitation/aggression. -NRT - nicotine patch -SW on board for discharge planning. Encouraged the patient to participate in milieu.
[2022-05-24] MEDS: MAG HYDROX/AL HYDROX/SIMETH 30 ML CUP PO PRN ×2 (14:49→20:48)
[2022-05-24] MEDS: bisacodyL 5 MG TABLET.DR PO PRN (14:50)
[2022-05-24] MEDS: NAPROXEN 250 MG TAB PO PRN (18:33)
[2022-05-24] MEDS: QUEtiapine 200 MG TAB PO SCH (20:44)
[2022-05-24] MEDS: AMITRIPTYLINE HCL 50 MG TAB PO SCH (20:45)
[2022-05-25] MEDS: LEVOTHYROXINE 100 MCG TAB PO SCH (06:29)
[2022-05-25 07:14] VITALS: RESP 16
[2022-05-25] MEDS: LACTULOSE 20 GM/30 ML CUP PO SCH (08:43)
[2022-05-25] MEDS: QUEtiapine 50 MG TAB PO SCH ×2 (08:43→11:15)
[2022-05-25] MEDS: PANTOPRAZOLE 40 MG TABLET PO SCH ×2 (08:43→17:56)
[2022-05-25] MEDS: MULTIVITAMINS, THERA 1 EACH TAB PO SCH (08:43)
[2022-05-25] MEDS: FOLIC ACID 1 MG TAB PO SCH (08:43)
[2022-05-25] MEDS: NICOTINE 14MG/24HR PATCH TRANSDERM SCH (08:43)
[2022-05-25] MEDS: THIAMINE 100 MG TAB PO SCH ×2 (08:43→17:56)
[2022-05-25] MEDS: MICONAZOLE NITRATE 2% CREAM 14 GM TUBE TOPICAL SCH ×2 (08:44→21:12)
[2022-05-25] MEDS: FLUTICASONE 50MCG/SPRAY NASAL 16GM EA NOSTRIL SCH (08:44)
[2022-05-25] MEDS: OXYMETAZOLINE 0.05% NASL SPRAY 1 SPRAY BOTTLE NASAL SCH (08:44)
[2022-05-25] MEDS: MAG HYDROX/AL HYDROX/SIMETH 30 ML CUP PO PRN (09:23)
[2022-05-25] MEDS: hydrOXYzine pamoate 25 MG CAP PO PRN ×2 (11:16→17:58)
[2022-05-25] MEDS ORDERED: HYDROcodone/APAP 5-325MG 1 EACH TAB PO PRN (11:39)
[2022-05-25] MEDS ORDERED: diphenhydrAMINE 25 MG CAP PO PRN (18:06)
[2022-05-25] MEDS ORDERED: OXYMETAZOLINE 0.05% NASL SPRAY 1 SPRAY BOTTLE NASAL PRN (18:07)
--- NOTE | 2022-05-25 18:16 | P.PN ---
Progress Note - Text Progress Note Date: 05/25/22 Interval History: Patient was seen wandering the hallways and was directable and agreeable to speak with pattern chart writer in the office. The patient continues to report elevated anxiety and continues to refocus on her medications. She does express concerns with her ability to sleep despite taking 300 mg QHS of Seroquel. She denies any suicidal or homicidal ideation, intention, and/or plan. She is not reporting any auditory or visual hallucinations. She is denying any paranoia or delusions. She is compliant with medications and denies medication side effects. Mental Status Exam: General Appearance: Patient appears to be stated age is alert, directable, and cooperative. Orientation: Alert, oriented to person, place, time and situation. Behavior: Patient is calmly seated without any agitated behavior. Speech: Patient's speech is fluent and nonpressured. Mood/Affect: Mood is "still anxious." Affect is anxious. Suicidality/Homicidality: Patient denies having any suicidal or homicidal ideation intent or plan. Perceptions: Patient denies any visual hallucinations and denies any auditory hallucinations Though content: There is no evidence of any delusional thought content. She is fixated on medications and her anxiety. Thought process: Thought process is linear and goal-directed. Memory and concentration: Grossly intact for the purposes of this session Judgment and insight: Improving mildly Vital Signs Temp 98.1 F 05/24/22 04:13 Pulse 92 05/24/22 09:05 Resp 14 05/24/22 04:13 BP 118/71 05/24/22 11:29 Pulse Ox 98 05/17/22 19:57 FiO2 Laboratory Results - Last 24 Hours 05/24/22 05/24/22 12:02 12:02 WBC 5.5 RBC 3.90 Hgb 12.8 Hct 39.4 MCV 101.1 H MCH 32.8 MCHC 32.4 RDW 12.6 Plt Count 393 MPV 7.0 Sodium 136 L Potassium 4.6 Chloride 99 Carbon Dioxide 32 H Anion Gap 5 BUN 11 Creatinine 0.99 Est GFR (CKD-EPI)AfAm 77 Est GFR (CKD-EPI)NonAf 66 Glucose 99 Calcium 9.2 Total Bilirubin 0.2 AST 50 H ALT 52 H Alkaline Phosphatase 89 Total Protein 6.9 Albumin 4.1 Assessment Major depressive disorder, recurrent, severe without psychotic features Generalized anxiety disorder, with panic attacks Rule out PTSD Alcohol use disorder, severe Alcohol withdrawal, mild Cocaine use disorder, mild Cannabis use disorder, mild Plan: -Patient continues to meet criteria for inpatient psychiatric admission for symptom stabilization and safety. Patient has signed adult voluntary form and medication consent and was placed in patient's chart. -As the patient has had severe attempt after being previously cleared, we will hold the patient until transfer to rehab. -Medications: Amitriptyline 100 mg by mouth at bedtime for depression/anxiety/sleep Increase Seroquel to 75 mg by mouth twice a day PLUS Seroquel 300 mg by mouth at bedtime for augmentation/insomnia Vistaril when necessary for anxiety -When necessary Ativan and Haldol for agitation/aggression. -NRT - nicotine patch -SW on board for discharge planning. Encouraged the patient to participate in milieu.
[2022-05-25] MEDS: QUEtiapine 25 MG TAB PO SCH (20:02)
[2022-05-25] MEDS: AMITRIPTYLINE HCL 50 MG TAB PO SCH (20:02)
[2022-05-25] MEDS: QUEtiapine 200 MG TAB PO SCH (20:03)
[2022-05-25] MEDS: BACITRACIN OINT 1 EACH PACKET TOPICAL PRN (20:04)
[2022-05-25] MEDS: MAGNESIUM HYDROXIDE 2,400 MG/10 ML CUP PO PRN (20:10)
[2022-05-26] MEDS: LEVOTHYROXINE 100 MCG TAB PO SCH (06:36)
[2022-05-26] MEDS: QUEtiapine 25 MG TAB PO SCH ×2 (07:58→14:34)
[2022-05-26] MEDS: NICOTINE 14MG/24HR PATCH TRANSDERM SCH (07:58)
[2022-05-26] MEDS: LACTULOSE 20 GM/30 ML CUP PO SCH (07:58)
[2022-05-26] MEDS: hydrOXYzine pamoate 25 MG CAP PO PRN ×3 (07:58→22:28)
[2022-05-26] MEDS: MAGNESIUM HYDROXIDE 2,400 MG/10 ML CUP PO PRN (07:58)
[2022-05-26] MEDS: FOLIC ACID 1 MG TAB PO SCH (07:59)
[2022-05-26] MEDS: FLUTICASONE 50MCG/SPRAY NASAL 16GM EA NOSTRIL SCH (07:59)
[2022-05-26] MEDS: MICONAZOLE NITRATE 2% CREAM 14 GM TUBE TOPICAL SCH ×2 (07:59→23:18)
[2022-05-26] MEDS: THIAMINE 100 MG TAB PO SCH ×2 (07:59→17:53)
[2022-05-26] MEDS: PANTOPRAZOLE 40 MG TABLET PO SCH ×2 (07:59→17:53)
[2022-05-26] MEDS: MULTIVITAMINS, THERA 1 EACH TAB PO SCH (07:59)
--- NOTE | 2022-05-26 12:40 | P.PN ---
Subjective Progress Note Date: 05/26/22 Principal diagnosis: Assessment Major depressive disorder, recurrent, severe without psychotic features Generalized anxiety disorder, with panic attacks Rule out PTSD Alcohol use disorder, severe Alcohol withdrawal, mild Cocaine use disorder, mild Cannabis use disorder, mild Subjective data: Patient was seen wandering the hallways and was directable and agreeable to speak with conventional underwriter in the hallway Patient states that she is doing better but feels that her Prolixin dosage may have been missed entered where she is supposed to be on 75 mg 3 times a day and 375 mg at bedtime She does express concerns with her ability to sleep despite taking 300 mg QHS of Seroquel. She denies any suicidal or homicidal ideation, intention, and/or plan. She is not reporting any auditory or visual hallucinations. She is denying any paranoia or delusions. She is compliant with medications and denies medication side effects. She states that she is looking forward to going to the substance use program for her alcohol use Mental Status Exam: General Appearance: Patient appears to be stated age is alert, directable, and cooperative. Orientation: Alert, oriented to person, place, time and situation. Behavior: Patient is calmly seated without any agitated behavior. Speech: Patient's speech is fluent and nonpressured. Mood/Affect: Mood is "still anxious." Affect is anxious. Suicidality/Homicidality: Patient denies having any suicidal or homicidal ideation intent or plan. Perceptions: Patient denies any visual hallucinations and denies any auditory hallucinations Though content: There is no evidence of any delusional thought content. She is fixated on medications and her anxiety. Thought process: Thought process is linear and goal-directed. Memory and concentration: Grossly intact for the purposes of this session Judgment and insight: Improving mildly Assessment Major depressive disorder, recurrent, severe without psychotic features Generalized anxiety disorder, with panic attacks Rule out PTSD Alcohol use disorder, severe Alcohol withdrawal, mild Cocaine use disorder, mild Cannabis use disorder, mild Plan: -Patient continues to meet criteria for inpatient psychiatric admission for symptom stabilization and safety. Patient has signed adult voluntary form and medication consent and was placed in patient's chart. -As the patient has had severe attempt after being previously cleared, we will hold the patient until transfer to rehab. -Medications: Amitriptyline 100 mg by mouth at bedtime for depression/anxiety/sleep Continue Seroquel to 75 mg by mouth twice a day PLUS Seroquel 300 mg by mouth at bedtime for augmentation/insomnia Vistaril when necessary for anxiety -When necessary Ativan and Haldol for agitation/aggression. -NRT - nicotine patch -SW on board for discharge planning. Encouraged the patient to participate in milieu. Vladimir Garcia M.D. 05/26/2022 Objective - Vital Signs Vital signs: Vital Signs Temp 98 F 05/26/22 06:58 Pulse 77 05/26/22 06:58 Resp 16 05/25/22 07:14 BP 111/72 05/26/22 06:58 Pulse Ox 97 05/26/22 06:58 FiO2 - Labs CBC & Chem 7: 05/24/22 12:02 05/24/22 12:02
[2022-05-26] MEDS: MAG HYDROX/AL HYDROX/SIMETH 30 ML CUP PO PRN ×2 (13:39→22:28)
[2022-05-26] MEDS: QUEtiapine 200 MG TAB PO SCH (20:13)
[2022-05-26] MEDS: bisacodyL 5 MG TABLET.DR PO PRN (20:13)
[2022-05-26] MEDS: AMITRIPTYLINE HCL 50 MG TAB PO SCH (20:14)
[2022-05-26] MEDS: BACITRACIN OINT 1 EACH PACKET TOPICAL PRN (23:52)
[2022-05-27] MEDS: LEVOTHYROXINE 100 MCG TAB PO SCH (06:12)
[2022-05-27 06:53] VITALS: BP 104/69; PULSE 84; TEMP 97.7
[2022-05-27] MEDS: THIAMINE 100 MG TAB PO SCH ×2 (08:05→17:35)
[2022-05-27] MEDS: FOLIC ACID 1 MG TAB PO SCH (08:05)
[2022-05-27] MEDS: PANTOPRAZOLE 40 MG TABLET PO SCH ×2 (08:05→17:35)
[2022-05-27] MEDS: QUEtiapine 25 MG TAB PO SCH ×2 (08:05→11:37)
[2022-05-27] MEDS: MULTIVITAMINS, THERA 1 EACH TAB PO SCH (08:05)
[2022-05-27] MEDS: NICOTINE 14MG/24HR PATCH TRANSDERM SCH (08:05)
[2022-05-27] MEDS: FLUTICASONE 50MCG/SPRAY NASAL 16GM EA NOSTRIL SCH (08:06)
[2022-05-27] MEDS: MICONAZOLE NITRATE 2% CREAM 14 GM TUBE TOPICAL SCH ×2 (08:06→20:12)
[2022-05-27] MEDS: LACTULOSE 20 GM/30 ML CUP PO SCH (08:06)
[2022-05-27] MEDS: hydrOXYzine pamoate 25 MG CAP PO PRN ×3 (08:07→20:08)
[2022-05-27] MEDS: MAGNESIUM HYDROXIDE 2,400 MG/10 ML CUP PO PRN (11:37)
--- NOTE | 2022-05-27 12:45 | P.PN ---
Subjective Progress Note Date: 05/27/22 Principal diagnosis: Assessment Major depressive disorder, recurrent, severe without psychotic features Generalized anxiety disorder, with panic attacks Rule out PTSD Alcohol use disorder, severe Alcohol withdrawal, mild Cocaine use disorder, mild Cannabis use disorder, mild Subjective data: Patient was seen wandering the hallways and was directable and agreeable to speak with justowriter operator in the hallway Patient states that she is curious about her labs that were ordered for her and that she never got the results When asked specifically she states that she is on medications to stop drinking like the Campral and naltrexone and that they were going to check the blood levels She is denying any paranoia or delusions. She is compliant with medications and denies medication side effects. She states that she is looking forward to going to the substance use program for her alcohol use Mental Status Exam: General Appearance: Patient appears to be stated age is alert, directable, and cooperative. Orientation: Alert, oriented to person, place, time and situation. Behavior: Patient is calmly seated without any agitated behavior. Speech: Patient's speech is fluent and nonpressured. Mood/Affect: Mood is "still anxious." Affect is anxious. Suicidality/Homicidality: Patient denies having any suicidal or homicidal ideation intent or plan. Perceptions: Patient denies any visual hallucinations and denies any auditory hallucinations Though content: There is no evidence of any delusional thought content. She is fixated on medications and her anxiety. Thought process: Thought process is linear and goal-directed. Memory and concentration: Grossly intact for the purposes of this session Judgment and insight: Improving mildly Assessment Major depressive disorder, recurrent, severe without psychotic features Generalized anxiety disorder, with panic attacks Rule out PTSD Alcohol use disorder, severe Alcohol withdrawal, mild Cocaine use disorder, mild Cannabis use disorder, mild Plan: Patient was explained that they were checking the liver function tests to administer the naltrexone and that it was low and not a problem starting the medication She was also told that Campral is medicalized through the kidneys and will not have any bearing on the liver function tests -Patient continues to meet criteria for inpatient psychiatric admission for symptom stabilization and safety. Patient has signed adult voluntary form and medication consent and was placed in patient's chart. -As the patient has had severe attempt after being previously cleared, we will h old the patient until transfer to rehab. -Medications: Amitriptyline 100 mg by mouth at bedtime for depression/anxiety/sleep Continue Seroquel to 75 mg by mouth twice a day PLUS Seroquel 300 mg by mouth at bedtime for augmentation/insomnia Vistaril when necessary for anxiety -When necessary Ativan and Haldol for agitation/aggression. -NRT - nicotine patch -SW on board for discharge planning. Encouraged the patient to participate in milieu. Vladimir Garcia M.D. 05/27/2022 Objective - Vital Signs Vital signs: Vital Signs Temp 97.7 F 05/27/22 06:53 Pulse 84 05/27/22 06:53 Resp 16 05/27/22 06:53 BP 104/69 05/27/22 06:53 Pulse Ox 99 05/27/22 06:53 FiO2 Intake & Output 05/26/22 05/27/22 05/27/22 18:59 06:59 18:59 Weight 53.8 kg - Labs CBC & Chem 7: 05/24/22 12:02 05/24/22 12:02
[2022-05-27] MEDS: BACITRACIN OINT 1 EACH PACKET TOPICAL PRN (14:13)
[2022-05-27] MEDS: bisacodyL 5 MG TABLET.DR PO PRN (14:14)
[2022-05-27] MEDS: MAG HYDROX/AL HYDROX/SIMETH 30 ML CUP PO PRN (16:34)
[2022-05-27] MEDS ORDERED: NA PHOS,M-B/NA PHOS,DI-BA 133 ML ENEMA RECTAL ONE (19:55)
[2022-05-27] MEDS: QUEtiapine 200 MG TAB PO SCH (20:05)
[2022-05-27] MEDS: AMITRIPTYLINE HCL 50 MG TAB PO SCH (20:05)
--- NOTE | 2022-05-27 22:15 | XR ---
EXAMINATION TYPE: XR KUB portable DATE OF EXAM: 05/27/2022 COMPARISON: NONE HISTORY: Constipation TECHNIQUE: Single view FINDINGS: There is no sign of intestinal obstruction or pneumoperitoneum. There is some retained feca l material in the right side of the abdomen. No calcifications seen over the kidneys. Bony structures are intact. IMPRESSION: Nonacute abdomen.
[2022-05-28] MEDS: LEVOTHYROXINE 100 MCG TAB PO SCH (06:27)
[2022-05-28] MEDS: QUEtiapine 25 MG TAB PO SCH (08:16)
[2022-05-28] MEDS: NICOTINE 14MG/24HR PATCH TRANSDERM SCH (08:16)
[2022-05-28] MEDS: THIAMINE 100 MG TAB PO SCH (08:16)
[2022-05-28] MEDS: PANTOPRAZOLE 40 MG TABLET PO SCH (08:17)
[2022-05-28] MEDS: FOLIC ACID 1 MG TAB PO SCH (08:17)
[2022-05-28] MEDS: FLUTICASONE 50MCG/SPRAY NASAL 16GM EA NOSTRIL SCH (08:17)
[2022-05-28] MEDS: LACTULOSE 20 GM/30 ML CUP PO SCH (08:21)
[2022-05-28] MEDS: hydrOXYzine pamoate 25 MG CAP PO PRN (08:25)
[2022-05-28] MEDS: MICONAZOLE NITRATE 2% CREAM 14 GM TUBE TOPICAL SCH (08:27)
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
== END 2022-05-28 09:45 | DRG 885 ==
LOC: 3MHU 18:57
PROVIDERS: ADMIT Psychiatry & Neurology Psychiatry; ATTEND Psychiatry & Neurology Psychiatry
DX: F33.2 Major depressive disorder, recurrent severe without psychotic features (principal); F10.239 Alcohol dependence with withdrawal, unspecified; E23.0 Hypopituitarism; F10.229 Alcohol dependence with intoxication, unspecified; F14.10 Cocaine abuse, uncomplicated; X78.9XXA Intentional self-harm by unspecified sharp object, initial encounter; S61.512A Laceration without foreign body of left wrist, initial encounter; S61.511A Laceration without foreign body of right wrist, initial encounter; F41.1 Generalized anxiety disorder; F41.0 Panic disorder [episodic paroxysmal anxiety]; F12.10 Cannabis abuse, uncomplicated; G47.00 Insomnia, unspecified; E03.9 Hypothyroidism, unspecified; K59.00 Constipation, unspecified; K21.9 Gastro-esophageal reflux disease without esophagitis; M50.30 Other cervical disc degeneration, unspecified cervical region; M19.90 Unspecified osteoarthritis, unspecified site; F17.210 Nicotine dependence, cigarettes, uncomplicated; Z71.6 Tobacco abuse counseling; Z79.890 Hormone replacement therapy; Z79.899 Other long term (current) drug therapy; Z91.51 Personal history of suicidal behavior; Z86.59 Personal history of other mental and behavioral disorders; Z62.810 Personal history of physical and sexual abuse in childhood; Z62.811 Personal history of psychological abuse in childhood; Z91.410 Personal history of adult physical and sexual abuse; Z71.41 Alcohol abuse counseling and surveillance of alcoholic; Z71.51 Drug abuse counseling and surveillance of drug abuser; Z88.8 Allergy status to other drugs, medicaments and biological substances; Z91.030 Bee allergy status; Z81.8 Family history of other mental and behavioral disorders
CPT/HCPCS: 74018; 80053; 85027; 93005

== ENCOUNTER → 2022-08-06 | Outpatient (CLI) | payer OTHER ==
[2022-08-06 18:19] LABS: Immunoglobulin M 94.8 mg/dL (40.0-280.0)
[2022-08-06 19:18] LABS: Immunoglobulin E 12.6 IU/mL (0.00-114.00)
[2022-08-08 04:42] LABS: Herpes simplex I and/or II IgM 0.45 INDEX (<=0.90); Herpes simplex IgG I Ab 0.13 (< or = 0.90); Herpes simplex IgG II Ab 18.1 (< or = 0.90)
== END | disposition home or self-care (01) ==
LOC: LABWHC1 11:21
PROVIDERS: ATTEND Nurse Practitioner
DX: L72.8 Other follicular cysts of the skin and subcutaneous tissue (principal); Z20.2 Contact with and (suspected) exposure to infections with a predominantly sexual mode of transmission
CPT/HCPCS: 36415; 82784; 82785; 83036; 86694; 86695; 86696

== ENCOUNTER → 2022-08-14 | Outpatient (CLI) | payer OTHER ==
--- NOTE | 2022-08-14 16:17 | XR ---
Bilateral hips HISTORY: Pain 2 views each hip submitted Bone mineralization, joint spaces and alignment are maintained within the hips. Probable phleboliths noted incidentally within the pelvis. No fracture or dislocation. IMPRESSION: No significant abnormality evident. MRI may be of benefit to assess soft tissues as indic ated.
== END | disposition home or self-care (01) ==
LOC: RADXRMAIN 15:32
PROVIDERS: ATTEND Nurse Practitioner
DX: M25.552 Pain in left hip (principal); M25.551 Pain in right hip
CPT/HCPCS: 73521

== ENCOUNTER → 2022-09-27 | Outpatient (CLI) | payer OTHER ==
[2022-09-27 10:57] VITALS: BP 105/71; PULSE 90; RESP 18
--- NOTE | 2022-10-01 13:25 | P.PAINPG ---
PQRS Measure Charge Sheet Comment: A 52 yr old female with a history of severe and chronic neck pain x 2 mo secondary to cervical degenerative disc diseases and spondylosis with facet arthropathy without myelopathy presents today for . Pain level is currently at 8/10 in intensity, constant, localized in lower cervical spine, sharp in charac ter w shooting towards the BUEs. Pain is provoked by UE over activity. Pain is alleviated with heat, PT which she is currently in, home exercise regimen, meds (Flexeril), repositioning and rest. Interventional pain procedures completed include R MBB C4-C6 x1 Patient is currently on Flexeril Patient denies any side effects of the medication(s), denies excessive drowsiness or sleepiness, denies suicidal ideation and reports that the current pain medication is helping to control the pain and improve activities of daily living. Patient denies any motor or sensory deficits. Patient denies any fever or night sweats, denies any change in the bowel movements or urination. Physical Examination: -Constitutional: Cooperative. Not in acute distress . - Neurologic: Cranial nerve II to XII intact. No focal neurological deficits. - Psychatric: Alert & oriented x 3. Matching mood & appropriate affect. Judgment and insight intact. - Musculoskeletal: Cervical spine: Muscle bulk/ tone/ strength in the bilateral upper extremities normal Vertebral body tenderness to palpation over C7 Spurling test positive Distraction test positive Facet loading test positive Thoracic spine Muscle bulk / tone/ strength in the bilateral paraspinal muscles normal Vertebral body tender to palpation over Facet loading test positive Lumbar spine: Motor bulk/ tone/ strength lower extremities , thigh and legs : 5/5 Deep tendon reflexes : Normal Knee Jerk. Normal Ankle Jerk . Vertebral body tenderness to palpation over Lumbar Facet Loading Test positive Straight Leg Raise: positive at 30 degrees right side/ left side Gaenslen's Test positive Sacral spine : Severe tenderness over the Sacroiliac joint: right side / left side Range of motion: Flexion of the lumbar spine <60 degrees Range of motion: Extension of the lumbar spine <20 degrees Gaenslen's Test positive Dewayne's Test positive Travon test: positive right side / left side Thigh Thrust Test Sacral Thrust Test Assessment and plan: Chronic neck pain secondary to cervical DDD, spondylosis with facet arthropathy without myelopathy Recommendation of JEFFRY C7-T1 #1. May need a series, up to 3 within a 6 mo period, for optimal pain relief. Risks, benefits of procedure discussed and pt verbalized understanding. Denies anticoagulant use or medical history of diabetes. All patient questions answered I have spent less than 30 minutes on patient care today. Dr Power was available by phone for the evaluation of this patient. The time was used to review the medical records including relevant urine studies and Prescription history (MAPs), review of the available imaging, evaluation and examination of the patient, coordination of care with the medical staff and if applicable referring physicians, as well as creation of the medical record - Pain Location Neck Non-Pharmacological Interventions: Heat, Home Exercise, Inactivity, Physical Therapy, Position/Reposition, Stretching Pharmacological Interventions: PRN Medication PQRS Narrative: Smoking Status Current every day smoker Narcotic Agreement Date Signed 07/06/20 Hx Alcohol Use (MH) Yes: IN THE PAST Home Medications: Ambulatory Orders Amitriptyline HCl [Elavil] 100 mg PO HS 30 Days tab 05/28/22 Folic Acid 1 mg PO DAILY 30 Days tab 05/28/22 Levothyroxine Sodium [Synthroid] 100 mcg PO DAILY@0630 30 Days tab 05/28/22 Miconazole 2% Cream [Monistat-Derm] 1 applic TOPICAL BID 30 Days each 05/28/22 Multivitamins, Thera [Multivitamin (formulary)] 1 each PO DAILY@1200 30 Days tab 05/28/22 Naproxen [Naprosyn] 500 mg PO BID PRN 30 Days tab 05/28/22 Pantoprazole [Protonix] 40 mg PO AC-BID 30 Days tab 05/28/22 QUEtiapine [SEROquel] 75 mg PO BID@0800,1200 30 Days tab 05/28/22 QUEtiapine [SEROquel] 300 mg PO HS 30 Days tab 05/28/22 Thiamine [Vitamin B-1] 100 mg PO BID-W/MEALS 30 Days tab 05/28/22 estradioL [Estrace] 0.5 mg PO Q48H 30 Days tab 05/28/22 hydrOXYzine pamoate [Vistaril] 50 mg PO HS PRN 30 Days cap 05/28/22 hydrOXYzine pamoate [Vistaril] 50 mg PO TID PRN 30 Days cap 05/28/22 medroxyPROGESTERone [Provera] 2.5 mg PO DAILY 30 Days tab 05/28/22 Controlled Substance Measures - Controlled Substance Measures Is patient prescribed a controlled substance at discharge?: No
== END ==
LOC: PNWHC3 10:36
PROVIDERS: ATTEND Specialist
DX: M47.812 Spondylosis without myelopathy or radiculopathy, cervical region (principal); M50.322 Other cervical disc degeneration at C5-C6 level; G89.29 Other chronic pain; Z91.030 Bee allergy status; Z88.8 Allergy status to other drugs, medicaments and biological substances; F17.200 Nicotine dependence, unspecified, uncomplicated
CPT/HCPCS: 99211

== ENCOUNTER 2022-11-13 08:26 | Day surgery (SDC) | payer BC, OTHER ==
[~2022-11-13 08:26] MED LIST changes: -DEXAMETHASONE SOD PHOSPHATE 10 MG/ML 1 ML VIAL ONE; -IOPAMIDOL M200 10 ML VIAL ONE; -IV FLUID CONTINUATION 1,000 ML IV ONE; -LACTATED RINGERS 1,000 ML IV ONE; +LACTATED RINGERS 1,000 ML IV SCH; -LIDOCAINE 1% (10MG/ML) FOR IV START INTRADERMA ONE; +LIDOCAINE 1% (10MG/ML) FOR IV START INTRADERMA PRN; -MIDAZOLAM 2 MG/2 ML VIAL ONE; -ROPIVACAINE 5MG/ML 20ML VIAL ONE; -fentaNYL (PF) 50 MCG/ML 2 ML AMP ONE
[2022-11-13] MEDS ORDERED: LACTATED RINGERS 1,000 ML IV ONE (09:00)
[2022-11-13 09:10] VITALS: RESP 16; TEMP 97
[2022-11-13] MEDS ORDERED: fentaNYL (PF) 50 MCG/ML 2 ML AMP ONE (09:30)
[2022-11-13] MEDS ORDERED: MIDAZOLAM 2 MG/2 ML VIAL ONE (09:30)
[2022-11-13] MEDS ORDERED: IOPAMIDOL M200 10 ML VIAL ONE (09:30)
--- NOTE | 2022-11-13 09:40 | P.PCN ---
Date of Procedure: 11/13/22 Procedure(s) Performed: . PROCEDURE 1. Cervical epidural steroid injection under fluoroscopic guidance, C7-T1 (fluoroscopy images available in the radiology department ) 2. Cervical epidurogram. PREOPERATIVE DIAGNOSIS: 1- Cervical Degenerative Disc Diseases 2-cervical spondylosis with cervical Facet arthropathy without myelopathy.4-cervical spinal stenosis POSTOPERATIVE DIAGNOSIS: : 1- Cervical Degenerative Disc Diseases , 2-cervical spondylosis with cervical Facet arthropathy without myelopathy. 4-cervical spinal stenosis ANESTHESIA: moderate sedation, with Versed 2 mg and Fentanyl 50 mcg. Sedation start time :09:33 Sedation end time : 09:38 EBL 0 PROCEDURE INDICATION: The patient with neck pain and radiculitis unresponsive to conservative treatment consents for procedure. PROCEDURE DESCRIPTION / TECHNIQUE: The patient was seen and identified in the preoperative area. Risks, benefits, complications, including but not limited to infections ,bleeding , allergic reactions to the medications ,and not complete pain releife, and alternatives were discussed with the patient, the patient agreed to proceed with the procedure and signed the consent. Patient was taken to the OR and time out was completed. The patient was placed in the prone position on the procedure table. A pillow was placed under the patients chest to increase the cervical interlaminar space. The cervical area was prepped and draped in the usual sterile fashion. Vital signs were closely monitored during the procedure. Conscious sedation was used during the procedure to decrease patients anxiety. Using anterior-posterior fluoroscopy, the C7-T1 interlaminar space was identified and the skin over this site was marked and then infiltrated with 1% lidocaine subcutaneously. Subsequently, a 20-gauge 3-1/2-inch Tuohy epidural needle was inserted and advanced toward the epidural space by means of the ``hanging-drop technique and guided by AP and lateral fluoroscopy. The correct needle position in the epidural space was verified with the injection of 2 mL of the water soluble contrast dye [id number]-[id number] and observing an excellent epidurogram with the epidural spread of the dye, after negative aspiration for blood and CSF and in the absence of paresthesias. then, mixture containing 20 mg Dexamethasone and 2 ml of preservative-free normal saline injected and a washout of epidurogram was seen. Needle was withdrawn intact, skin was cleansed, and bandages were applied. Complications= none. Disposition= patient was placed in supine position and transferred to the recovery room area in stable condition and there was no evidence of upper or lo wer extremity motor or sensory deficit after the procedure patient was discharged from recovery room after discharge criteria met and home discharge instructions was given by the staff and patient will follow with the pain clinic in 2-4 weeks
[2022-11-13] MEDS ORDERED: IV FLUID CONTINUATION 700 ML IV ONE (09:42)
--- NOTE | 2022-11-13 09:52 | FL ---
Intraoperative/procedural fluoroscopic services were provided for cervical epidural injection. Total fluoroscopy time is 3 seconds with a total of 1 submitted image to PACS. Please see the operative not e for further details.
[2022-11-13 10:00] VITALS: BP 133/82; PULSE 77
== END 2022-11-13 10:08 | disposition home or self-care (01) ==
LOC: ORPAIN 08:26
PROVIDERS: ATTEND Specialist
DX: M47.812 Spondylosis without myelopathy or radiculopathy, cervical region (principal); M50.33 Other cervical disc degeneration, cervicothoracic region; M48.02 Spinal stenosis, cervical region; Z88.8 Allergy status to other drugs, medicaments and biological substances
CPT/HCPCS: 81025; 62321; J2250; J3010; Q9966

== ENCOUNTER → 2022-12-19 | Outpatient (CLI) | payer OTHER ==
[2022-12-19 10:47] VITALS: BP 122/70; PULSE 82; RESP 18
--- NOTE | 2022-12-19 14:07 | P.PAINPG ---
PQRS Measure Charge Sheet Comment: A 52 yr old female with a history of severe and chronic neck pain secondary to cervical DDD and spondylosis with facet arthropathy without myelopathy presents today for evaluation s/p JEFFRY C7-T1. Pt states she experienced 50% pain relief x 2 wks s/p procedure. Pain level is provoked at 9 /10 in intensity, constant, localized in the R cervical spine, dull/ achy in character w shooting towards the BUEs. Pain is provoked by lifting, hyperextension for 2 minutes, R rotation. Pain is alleviated with PT x 6 wks in Oct 2022 without relief, home exercises as tolerated, massager use at home, heat, meds (Ibu, Flexeril, Lyrica), repositioning and rest. Interventional pain procedures completed include JEFFRY C7-T1 Patient is currently on Lyrica, Ibu, Flexeril from Dr Baires Patient denies any side effects of the medication(s), denies excessive drowsiness or sleepiness, denies suicidal ideation and reports that the current pain medication is helping to control the pain and improve activities of daily living. Patient denies any motor or sensory deficits. Patient denies any fever or night sweats, denies any change in the bowel movements or urination. Physical Examination: -Constitutional: Cooperative. Not in acute distress . - Neurologic: Cranial nerve II to XII intact. No focal neurological deficits. - Psychatric: Alert & oriented x 3. Matching mood & appropriate affect. Judgment and insight intact. - Musculoskeletal: Cervical spine: Muscle bulk/ tone/ strength in the bilateral upper extremities normal Vertebral body tenderness to palpation over C7 Spurling test positive Distraction test positive Facet loading test positive Thoracic spine Muscle bulk / tone/ strength in the bilateral paraspinal muscles normal Vertebral body tender to palpation over Facet loading test positive Lumbar spine: Motor bulk/ tone/ strength lower extremities , thigh and legs : 5/5 Deep tendon reflexes : Normal Knee Jerk. Normal Ankle Jerk . Vertebral body tenderness to palpation over Lumbar Facet Loading Test positive Straight Leg Raise: positive at 30 degrees right side/ left side Gaenslen's Test positive Sacral spine : Severe tenderness over the Sacroiliac joint: right side / left side Range of motion: Flexion of the lumbar spine <60 degrees Range of motion: Extension of the lumbar spine <20 degrees Gaenslen's Test positive Travon test: positive right side / left side Thigh Thrust Test Sacral Thrust Test Assessment and plan: Chronic neck pain secondary to cervical DDD, spondylosis with facet arthropathy without myelopathy Recommendation of JEFFRY C7-T1 #2. May need a series of injections, up to 3 within a six-month timeframe, for optimal pain relief. Risks, benefits of procedure discussed and pt verbalized understanding. Admits to anticoagulant use or medical history of diabetes. Protocol for discontinuation/continuation of medications surrounding procedure discussed. All patient questions answered I have spent less than 30 minutes on patient care today. Dr Power was available by phone for the evaluation of this patient. The time was used to review the medical records including relevant urine studies and Prescription history (MAPs), review of the available imaging, evaluation and examination of the patient, coordination of care with the medical staff and if applicable referring physicians, as well as creation of the medical record PQRS Narrative: Smoking Status Current every day smoker Narcotic Agreement Date Signed 07/06/20 Hx Alcohol Use (MH) Yes: IN THE PAST Home Medications: Ambulatory Orders Folic Acid 1 mg PO DAILY 30 Days tab 05/28/22 Multivitamins, Thera [Multivitamin (formulary)] 1 each PO DAILY@1200 30 Days tab 05/28/22 Naproxen [Naprosyn] 500 mg PO BID PRN 30 Days tab 05/28/22 Pantoprazole [Protonix] 40 mg PO AC-BID 30 Days tab 05/28/22 Thiamine [Vitamin B-1] 100 mg PO BID-W/MEALS 30 Days tab 05/28/22 medroxyPROGESTERone [Provera] 2.5 mg PO DAILY 30 Days tab 05/28/22 Levothyroxine Sodium [Synthroid] 88 mcg PO DAILY 11/08/22 Miconazole 2% Cream [Monistat-Derm] 1 applic TOPICAL BID PRN 11/08/22 buPROPion XL [Wellbutrin XL] 300 mg PO DAILY 11/08/22 estradioL [Estrace] 0.5 mg PO DAILY 11/08/22 traZODone HCL 150 mg PO HS 11/08/22 Controlled Substance Measures - Controlled Substance Measures Is patient prescribed a controlled substance at discharge?: No
== END ==
LOC: PNWHC3 10:27
PROVIDERS: ATTEND Specialist
DX: M47.812 Spondylosis without myelopathy or radiculopathy, cervical region (principal); M50.30 Other cervical disc degeneration, unspecified cervical region; G89.29 Other chronic pain; Z88.8 Allergy status to other drugs, medicaments and biological substances; Z91.030 Bee allergy status; F17.200 Nicotine dependence, unspecified, uncomplicated
CPT/HCPCS: 99211

== ENCOUNTER 2023-02-12 19:52 | Inpatient (IN) | payer MEDICAID, OTHER ==
[2023-02-12] MEDS ORDERED: LORazepam 2 MG/ML INJ IM STA (20:36)
--- NOTE | 2023-02-12 21:53 | ED ---
General Adult HPI - General Chief complaint: Psychiatric Symptoms Stated complaint: ETOH Time Seen by Provider: 02/12/23 20:10 Source: patient, EMS Mode of arrival: EMS Limitations: altered mental status - History of Present Illness Initial comments: This is a 52-year-old female who presents emergency department via police for hallucinations and psychotic behavior. The patient was reportedly sitting hallucinations and coming up to police and a psychotic manner. The patient was significantly agitated and intoxicated on arrival. The patient was brought in was petitioned by police for delusions and hallucinations. On arrival, the patient was anxious and was intoxicated. The patient did report that she drank alcohol and took crack cocaine just prior to coming to the emergency department. The patient did state that she was homicidal towards her significant other and suicidal stating "I just want to end it all." The patient denied any other acute pain or complaints but was significantly agitated secondary to likely crack cocaine abuse. - Related Data Home Medications Medication Instructions Recorded Confirmed Levothyroxine Sodium [Synthroid] 88 mcg PO DAILY 11/08/22 02/13/23 buPROPion XL [Wellbutrin XL] 300 mg PO DAILY 11/08/22 02/13/23 estradioL [Estrace] 0.5 mg PO DAILY 11/08/22 02/13/23 traZODone HCL 300 mg PO HS 11/08/22 02/13/23 Cyclobenzaprine [Flexeril] 10 mg PO HS 12/19/22 02/13/23 Chlorhexidine Gluconate [Peridex] 15 ml PO DIRECTED 02/13/23 02/13/23 Cyclobenzaprine [Flexeril] 10 mg PO BID PRN 02/13/23 02/13/23 Fluoride (Sodium) [Sodium Fluoride 1 applic DENTAL DIRECTED 02/13/23 02/13/23 5000 Plus] Omeprazole [PriLOSEC] 20 mg PO BID 02/13/23 02/13/23 Pregabalin [Lyrica] 150 mg PO TID 02/13/23 02/13/23 Previous Rx's Medication Instructions Recorded Folic Acid 1 mg PO DAILY 30 Days tab 05/28/22 medroxyPROGESTERone [Provera] 2.5 mg PO DAILY 30 Days tab 05/28/22 QUEtiapine [SEROquel] 50 mg PO HS 30 Days #30 tab 02/15/23 Thiamine [Vitamin B-1] 100 mg PO DAILY 30 Days #30 tab 02/15/23 Allergies Allergy/AdvReac Type Severity Reaction Status Date / Time bee venom protein (honey bee) Allergy Anaphylaxis Verified 02/12/23 20:05 methylphenidate Allergy Rash/Hives Verified 02/12/23 20:05 [From Ritalin] peanut [Peanut Butter] AdvReac Unknown Verified 02/13/23 16:20 Review of Systems ROS Statement: Those systems with pertinent positive or pertinent negative responses have been documented in the HPI. ROS Other: All systems not noted in ROS Statement are negative. Past Medical History Past Medical History: GERD/Reflux, Osteoarthritis (OA), Skin Disorder, Thyroid Disorder Additional Past Medical History / Comment(s): Difficulty swallowing @ times, Hx. of Helena's Syndrome Hypotension, cervical pain, DDD. cyst on back side and groin area- tested will see contact clerk end of month. numbness in arms and nerve pain. 3 herniated discs. History of Any Multi-Drug Resistant Organisms: None Reported Past Surgical History: Cholecystectomy Additional Past Surgical History / Comment(s): PAIN CLINIC PROCEDURES Past Anesthesia/Blood Transfusion Reactions: No Reported Reaction Additional Past Anesthesia/Blood Transfusion Reaction / Comment(s): no blood transfusions. sensitive to not being able to breath through nose and mouth - doesnt like 02 on unless needed after sedated Past Psychological History: Anxiety, Depression, Panic Disorder Smoking Status: Current every day smoker Past Alcohol Use History: Heavy Past Drug Use History: Cocaine - Past Family History Mother Family Medical History: Cancer Additional Family Medical History / Comment(s): breast cancer, defibrillator Father Family Medical History: Cancer Additional Family Medical History / Comment(s): mini stoke General Exam Limitations: altered mental status General appearance: appears intoxicated, anxious Head exam: Present: atraumatic, normocephalic, normal inspection Eye exam: Present: normal appearance, PERRL Pupils: Present: normal accommodation ENT exam: Present: normal exam, normal oropharynx, mucous membranes moist Neck exam: Present: normal inspection, full ROM Respiratory exam: Present: normal lung sounds bilaterally Cardiovascular Exam: Present: regular rate, normal rhythm, normal heart sounds GI/Abdominal exam: Present: soft, normal bowel sounds Extremities exam: Present: normal inspection, full ROM Back exam: Present: normal inspection, full ROM Neurological exam: Present: alert, altered Psychiatric exam: Present: agitated, manic, homicidal ideation, suicidal ideation Skin exam: Present: warm, dry Course Vital Signs 02/12/23 02/13/23 02/13/23 19:57 01:43 07:28 Temperature 97.6 F 97.9 F 98.5 F Pulse Rate 92 102 H 97 Respiratory 22 20 Rate Blood Pressure 155/104 115/60 113/70 O2 Sat by Pulse 98 97 94 L Oximetry Medical Decision Making - Medical Decision Making Was pt. sent in by a medical professional or institution ([facility], TRACTOR OPERATOR, urgent care, hospital, or jail...) When possible be specific @ -No Did you speak to anyone other than the patient for history (EMS, parent, family, police, friend...)? What history was obtained from this source @ -Yes, Police Did you review nursing and triage notes (agree or disagree)? Why? @ -I reviewed and agree with nursing and triage notes Were old charts reviewed (outside hosp., previous admission, EMS record, old EKG, old radiological studies, urgent care reports/EKG's, jail records)? Report findings @ -No old charts were reviewed Differential Diagnosis (chest pain, altered mental status, abdominal pain women, abdominal pain men, vaginal bleeding, weakness, fever, dyspnea, syncope, headache, dizziness, GI bleed, back pain, seizure, CVA, palpatations, mental health)? @ -Crack cocaine abuse, suicidal ideation, homicide ideation EKG interpreted by me (3pts min.). @ -None X-rays interpreted by me (1pt min.). @ -None done CT interpreted by me (1pt min.). @ -None done U/S interpreted by me (1pt. min.). @ -None done What testing was considered but not performed or refused? (CT, X-rays, U/S, labs)? Why? @ -None What meds were considered but not given or refused? Why? @ -None Did you discuss the management of the patient with other professionals ([facility] i.e. [facility], TRACTOR OPERATOR, lab, RT, psych nurse, vp digital marketing social media and crm, transactional attorney, teacher, civil preparedness training officer, social work case manager)? Give summary @ -No Was smoking cessation discussed for >3mins.? @ -Yes Was critical care preformed (if so, how long)? @ -No Were there social determinants of health that impacted care today? How? (Homelessness, low income, unemployed, alcoholism, drug addiction, transportation, low edu. Level, literacy, decrease access to med. care, retirement, rehab)? @ -No Was there de-escalation of care discussed even if they declined (Discuss DNR or withdrawal of care, Hospice)? DNR status @ -No What co-morbidities impacted this encounter? (DM, HTN, Smoking, COPD, CAD, Cancer, CVA, ARF, Chemo, Hep., AIDS, mental health diagnosis, sleep apnea, morbid obesity)? @ -None Was patient admitted / discharged? Hospital course, mention meds given and route, prescriptions, significant lab abnormalities, going to OR and other pertinent info. @ -The patient was seen and evaluated emergency department. Initially on arrival, the patient was agitated likely secondary to the patient's crack cocaine abuse. The patient continued to state multiple times that she was homicidal towards her significant other and suicidal currently. The patient was brought in by police and was petitioned by police. The patient was given 1 mg of Ativan in order to call down as the patient could not tolerate any further evaluation. The patient did have a BAT of .115 and was continued to be observed until the patient could be sober. A drug screen was also ordered at this time. The patient will be closely monitored observed him be sent out to the oncoming physician pending EPS evaluation for final disposition and management. The patient was signed out in stable condition. Undiagnosed new problem with uncertain prognosis? @ -No Drug Therapy requiring intensive monitoring for toxicity (Heparin, Nitro, Insulin, Cardizem)? @ -No Were any procedures done? @ -No Diagnosis/symptom? @ -Homicidal ideation, suicide ideation, EtOH abuse and crack cocaine abuse Acute, or Chronic, or Acute on Chronic? @ -Acute Uncomplicated (without systemic symptoms) or Complicated (systemic symptoms)? @ -Complicated Side effects of treatment? @ -No Exacerbation, Progression, or Severe Exacerbation? @ -No Poses a threat to life or bodily function? How? (Chest pain, USA, DC, pneumonia, PE, COPD, DKA, ARF, appy, cholecystitis, CVA, Diverticulitis, Homicidal, Suicida l, threat to staff... and all critical care pts) @ -No 3/31/23 at 1455. Patient was discharged home after speaking with the EPS. Safety plan was created and the patient agreed. The patient was discharged home while under the care of another physician. - Lab Data Result diagrams: 02/13/23 05:40 02/13/23 05:40 Lab Results 02/13/23 02/13/23 02/13/23 Range/Units 05:40 05:40 05:40 WBC 9.8 (3.8-10.6) k/uL RBC 4.36 (3.80-5.40) m/uL Hgb 13.5 (11.4-16.0) gm/dL Hct 39.9 (34.0-46.0) % MCV 91.4 (80.0-100.0) fL MCH 31.0 (25.0-35.0) pg MCHC 34.0 (31.0-37.0) g/dL RDW 13.0 (11.5-15.5) % Plt Count 350 (150-450) k/uL MPV 7.3 Neutrophils % 52 % Lymphocytes % 40 % Monocytes % 5 % Eosinophils % 1 % Basophils % 0 % Neutrophils # 5.1 (1.3-7.7) k/uL Lymphocytes # 3.9 (1.0-4.8) k/uL Monocytes # 0.5 (0-1.0) k/uL Eosinophils # 0.1 (0-0.7) k/uL Basophils # 0.0 (0-0.2) k/uL Sodium (137-145) mmol/L Potassium (3.5-5.1) mmol/L Chloride (98-107) mmol/L Carbon Dioxide (22-30) mmol/L Anion Gap mmol/L BUN (7-17) mg/dL Creatinine (0.52-1.04) mg/dL Est GFR (CKD-EPI)AfAm (>60 ml/min/1.73 sqM) Est GFR (CKD-EPI)NonAf (>60 ml/min/1.73 sqM) Glucose (74-99) mg/dL Estimated Ave Glu mg/dL Hemoglobin A1c (0.0-6.0) % Calcium (8.4-10.2) mg/dL Total Bilirubin (0.2-1.3) mg/dL AST (14-36) U/L ALT (4-34) U/L Alkaline Phosphatase (38-126) U/L Total Protein (6.3-8.2) g/dL Albumin (3.5-5.0) g/dL Triglycerides (0.00-149.00) mg/dL Cholesterol (0.00-200.00) mg/dL LDL Cholesterol, Calc (0.0-131.0) mg/dL VLDL Cholesterol, Calc (5.00-40.00) mg/dL HDL Cholesterol (40.00-60.00) mg/dL Cholesterol/HDL Ratio Ratio TSH (0.465-4.680) mIU/L Urine Color Light Yellow Urine Appearance Clear (Clear) Urine pH 6.0 (5.0-8.0) Ur Specific [place] 1.008 (1.001-1.035) Urine Protein Negative (Negative) Urine Glucose (UA) Negative (Negative) Urine Ketones Trace H (Negative) Urine Blood Negative (Negative) Urine Nitrite Negative (Negative) Urine Bilirubin Negative (Negative) Urine Urobilinogen <2.0 (<2.0) mg/dL Ur Leukocyte Esterase Negative (Negative) Urine Opiates Screen Negative (Negative) Urine Methadone Screen Negative (Negative) Ur Propoxyphene Screen Negative (Negative) Urine Barbiturates Negative (Negative) Ur Phencyclidine Scrn Negative (Negative) Ur Amphetamine Screen Positive A (Negative) U Benzodiazepines Scrn Negative (Negative) Urine Cocaine Screen Positive A (Negative) U Cannabinoids Screen Negative (Negative) Urine Alcohol Negative (Negative) Coronavirus (PCR) (Not Detectd) 02/13/23 02/13/23 02/13/23 Range/Units 05:40 05:40 05:40 WBC (3.8-10.6) k/uL RBC (3.80-5.40) m/uL Hgb (11.4-16.0) gm/dL Hct (34.0-46.0) % MCV (80.0-100.0) fL MCH (25.0-35.0) pg MCHC (31.0-37.0) g/dL RDW (11.5-15.5) % Plt Count (150-450) k/uL MPV Neutrophils % % Lymphocytes % % Monocytes % % Eosinophils % % Basophils % % Neutrophils # (1.3-7.7) k/uL Lymphocytes # (1.0-4.8) k/uL Monocytes # (0-1.0) k/uL Eosinophils # (0-0.7) k/uL Basophils # (0-0.2) k/uL Sodium 133 L (137-145) mmol/L Potassium 4.1 (3.5-5.1) mmol/L Chloride 101 (98-107) mmol/L Carbon Dioxide 25 (22-30) mmol/L Anion Gap 7 mmol/L BUN 15 (7-17) mg/dL Creatinine 0.74 (0.52-1.04) mg/dL Est GFR (CKD-EPI)AfAm >90 (>60 ml/min/1.73 sqM) Est GFR (CKD-EPI)NonAf >90 (>60 ml/min/1.73 sqM) Glucose 79 (74-99) mg/dL Estimated Ave Glu mg/dL 102 Hemoglobin A1c 5.2 (0.0-6.0) % Calcium 8.4 (8.4-10.2) mg/dL Total Bilirubin 0.7 (0.2-1.3) mg/dL AST 111 H (14-36) U/L ALT 70 H (4-34) U/L Alkaline Phosphatase 107 (38-126) U/L Total Protein 5.8 L (6.3-8.2) g/dL Albumin 3.5 (3.5-5.0) g/dL Triglycerides 83.70 (0.00-149.00) mg/dL Cholesterol 168.00 (0.00-200.00) mg/dL LDL Cholesterol, Calc 47.3 (0.0-131.0) mg/dL VLDL Cholesterol, Calc 16.74 (5.00-40.00) mg/dL HDL Cholesterol 104.00 H (40.00-60.00) mg/dL Cholesterol/HDL Ratio 1.62 Ratio TSH 1.610 (0.465-4.680) mIU/L Urine Color Urine Appearance (Clear) Urine pH (5.0-8.0) Ur Specific [place] (1.001-1.035) Urine Protein (Negative) Urine Glucose (UA) (Negative) Urine Ketones (Negative) Urine Blood (Negative) Urine Nitrite (Negative) Urine Bilirubin (Negative) Urine Urobilinogen (<2.0) mg/dL Ur Leukocyte Esterase (Negative) Urine Opiates Screen (Negative) Urine Methadone Screen (Negative) Ur Propoxyphene Screen (Negative) Urine Barbiturates (Negative) Ur Phencyclidine Scrn (Negative) Ur Amphetamine Screen (Negative) U Benzodiazepines Scrn (Negative) Urine Cocaine Screen (Negative) U Cannabinoids Screen (Negative) Urine Alcohol (Negative) Coronavirus (PCR) Not Detected (Not Detectd) Disposition Clinical Impression: Drug-induced psychotic disorder, Suicidal behavior, Homicidal behavior Disposition: HOME SELF-CARE Condition: Stable Is patient prescribed a controlled substance at d/c from ED?: No Time of Disposition: 14:55 (02/15/23)
[2023-02-13] MEDS ORDERED: LORazepam 2 MG/ML INJ IM STA (02:05)
[2023-02-13 06:36] LABS: Basophils % (A) 0 %; Eosinophils # (A) 0.1 k/uL (0-0.7); Eosinophils % (A) 1 %; HCT 39.9 % (34.0-46.0); HGB 13.5 gm/dL (11.4-16.0); Lymphocytes # (A) 3.9 k/uL (1.0-4.8); Lymphocytes % (A) 40 %; MCV 91.4 fL (80.0-100.0); Mean Platelet Volume 7.3; Monocytes # (A) 0.5 k/uL (0-1.0); Monocytes % (A) 5 %; Neutrophils # (A) 5.1 k/uL (1.3-7.7); Neutrophils % (A) 52 %; Platelet Count 350 k/uL (150-450); RBC 4.36 m/uL (3.80-5.40); WBC 9.8 k/uL (3.8-10.6)
[2023-02-13 07:02] LABS: ALT 70 U/L (4-34); AST 111 U/L (14-36); African American GFR (CKD) >90 (>60 ml/min/1.73 sqM); Albumin 3.5 g/dL (3.5-5.0); Alkaline Phosphatase 107 U/L (38-126); Anion Gap 7 mmol/L; Blood Urea Nitrogen 15 mg/dL (7-17); Calcium 8.4 mg/dL (8.4-10.2); Carbon Dioxide 25 mmol/L (22-30); Chloride 101 mmol/L (98-107); Glucose 79 mg/dL (74-99); Non-African American GFR(CKD) >90 (>60 ml/min/1.73 sqM); Potassium 4.1 mmol/L (3.5-5.1); Sodium 133 mmol/L (137-145); Total Bilirubin 0.7 mg/dL (0.2-1.3); Total Protein 5.8 g/dL (6.3-8.2)
[2023-02-13 07:23] LABS: Appearance,Urine Clear (Clear); Bilirubin,Urine Negative (Negative); Blood,Urine Negative (Negative); Color,Urine Light Yellow; Glucose,Urine (UA) Negative (Negative); Ketones,Urine Trace (Negative); Leukocyte Esterase,Urine Negative (Negative); Nitrite,Urine Negative (Negative); Protein,Urine Negative (Negative); Specific Gravity,Urine 1.008 (1.001-1.035); Urobilinogen,Urine <2.0 mg/dL (<2.0)
[2023-02-13] MEDS ORDERED: LORazepam 2 MG/ML INJ IV PRN ×3 (07:36)
[2023-02-13] MEDS ORDERED: LORazepam 1 MG TAB PO PRN ×2 (07:36)
[2023-02-13] MEDS ORDERED: CYCLOBENZAPRINE 10 MG TAB PO STA (07:43)
[2023-02-13] MEDS ORDERED: OLANZapine 10 MG VIAL IM PRN ×2 (08:46→14:56)
[2023-02-13 09:09] LABS: Chol/HDL Ratio 1.62 Ratio; LDL Cholesterol,Calculated 47.3 mg/dL (0.0-131.0); VLDL Calculation 16.74 mg/dL (5.00-40.00)
[2023-02-13 12:06] LABS: Urine Alcohol Negative (Negative); Urine Barbiturate Negative (Negative); Urine Cocaine Positive (Negative); Urine Methadone Negative (Negative); Urine Opiates Negative (Negative); Urine Phencyclidine Negative (Negative)
[2023-02-13] MEDS ORDERED: ACETAMINOPHEN TAB 325 MG TAB PO STA (12:20)
[2023-02-13] MEDS ORDERED: MAGNESIUM HYDROXIDE 2,400 MG/10 ML CUP PO PRN (14:52)
[2023-02-13] MEDS ORDERED: MAG HYDROX/AL HYDROX/SIMETH 30 ML CUP PO PRN (14:52)
[2023-02-13] MEDS ORDERED: ACETAMINOPHEN TAB 325 MG TAB PO PRN (14:52)
[2023-02-13] MEDS ORDERED: hydrOXYzine HCL 50 MG/ML 1 ML VIAL IM PRN (14:56)
[2023-02-13] MEDS ORDERED: OLANZapine 5 MG TAB PO PRN (14:56)
[2023-02-13] MEDS: chlordiazePOXIDE 25 MG CAP PO SCH ×2 (15:56→21:25)
--- NOTE | 2023-02-14 05:09 | P.PN ---
Progress Note - Text Progress Note Date: 02/14/23 Attempted to see the patient in the mental health unit. Informed by the MHU RN that the patient is uncooperative and is not appropriate for evaluation at this time.
[2023-02-14] MEDS: THIAMINE 100 MG TAB PO SCH (08:36)
[2023-02-14] MEDS: FOLIC ACID 1 MG TAB PO SCH (08:36)
[2023-02-14] MEDS: MULTIVITAMINS, THERA 1 EACH TAB PO SCH (08:36)
[2023-02-14] MEDS: chlordiazePOXIDE 25 MG CAP PO SCH ×3 (08:36→21:00)
[2023-02-14] MEDS: NICOTINE 14MG/24HR PATCH TRANSDERM SCH (08:58)
[2023-02-14] MEDS ORDERED: buPROPion XL 300 MG TAB.ER.24H PO STA (11:11)
[2023-02-14] MEDS: hydrOXYzine pamoate 25 MG CAP PO PRN ×2 (11:39→19:08)
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
[2023-02-14] MEDS: PREGABALIN 75 MG CAP PO SCH ×2 (15:59→21:00)
[2023-02-14] MEDS ORDERED: traZODone HCL 100 MG TAB PO SCH (21:00)
[2023-02-14] MEDS ORDERED: QUEtiapine 50 MG TAB PO SCH (21:00)
--- NOTE | 2023-02-15 03:51 | P.CONS ---
History of Present Illness - Reason for Consult Consult date: 02/14/23 - History of Present Illness The patient is a 52-year-old female with a PMH of alcohol abuse, hypothyroidism, and polysubstance abuse who was brought into the emergency room under police custody for psychotic behavior. The patient was noted to be intoxicated and agitated. She had also expressed suicidal ideation. The patient was admitted to the mental health unit where she was seen and evaluated. The patient states that she has recently relapsed on both her alcohol and her crack use. She reports that the last use was just prior to being brought into the emergency room. She reports feeling significantly better at the time of interview. She denied any active complaints. She denied experiencing chest discomfort, shortness of breath or fever, chills, cough, nausea, vomiting, abdominal pain, diarrhea. Reports drinking a pint of hard liquor daily. Review of systems: Pertinent positives and negatives as discussed in HPI, a complete review of systems was performed and all other systems are negative. Physical examination: General: non toxic, no distress, appears at stated age, normal weight Derm: no unusual rashes/lesions, no unusual ecchymoses, warm, dry Head: atraumatic, normocephalic, symmetric Eyes: EOMI, no lid lag, anicteric sclera ENT: Nose and ears atraumatic, no thrush, no pharyngeal erythema Neck: trachea midline, supple Mouth: no lip lesion, mucus membranes moist Cardiovascular: S1S2 reg, no murmur, no edema Lungs: CTA bilateral, no rhonchi, no rales , no accessory muscle use Abdominal: soft, nontender to palpation, no guarding Ext: no gross muscle atrophy, no contractures, Neuro: No gross focal neuro deficits noted Psych: Alert, oriented, appropriate affect Assessment: Alcohol abuse Polysubstance abuse Hypothyroidism Psychosis depression and suicidal ideation Imaging: None performed Data Review: Laboratory evaluation reviewed with WBC count 9.8, he will and 13.5, platelets 350, sodium 133, potassium 4.1, glucose 79, AST 111, ALT 70, with urine toxicology positive for cocaine and amphetamines with serum alcohol level 348. Plan: Advised patient strongly on the importance of cessation from alcohol and substance use Monitor CIWA score Continue with Librium 25 mg by mouth 3 times a day Continue with multivitamin and thiamine 100 mg by mouth daily Defer management of psychosis and depression with suicidal ideation to the primary psychiatry service Thank you for allowing us to participate in the care of this patient. We will follow peripherally. Do not hesitate to contact us with questions. Someone can be reached from the [facility] hospitalist group at all hours of the day at [phone]. Past Medical History Past Medical History: GERD/Reflux, Osteoarthritis (OA), Skin Disorder, Thyroid Disorder Additional Past Medical History / Comment(s): Difficulty swallowing @ times, Hx. of Helena's Syndrome Hypotension, cervical pain, DDD. cyst on back side and groin area- tested will see accountant tax end of month. numbness in arms and nerve pain. 3 herniated discs. History of Any Multi-Drug Resistant Organisms: None Reported Past Surgical History: Cholecystectomy Additional Past Surgical History / Comment(s): PAIN CLINIC PROCEDURES Past Anesthesia/Blood Transfusion Reactions: No Reported Reaction Additional Past Anesthesia/Blood Transfusion Reaction / Comm: no blood transfusions. sensitive to not being able to breath through nose and mouth - doesnt like 02 on unless needed after sedated Past Psychological History: Anxiety, Depression, Panic Disorder Smoking Status: Current every day smoker Past Alcohol Use History: Heavy Additional Past Alcohol Use History / Comment(s): Smoker of 1/2 PPD for 35 yrs on and off, currently smoking less than half a pack per day. Past Drug Use History: Cocaine Additional Drug Use History / Comment(s): no use in 4 -months went to treatment. 02/13 admits to using ETOH pink of vodka and using crack prior to hospitalization - Past Family History Mother Family Medical History: Cancer Additional Family Medical History / Comment(s): breast cancer, defibrillator Father Family Medical History: Cancer Additional Family Medical History / Comment(s): mini stoke Medications and Allergies Home Medications Medication Instructions Recorded Confirmed Type Folic Acid 1 mg PO DAILY 30 Days tab 05/28/22 02/13/23 Rx medroxyPROGESTERone [Provera] 2.5 mg PO DAILY 30 Days tab 05/28/22 02/13/23 Rx Levothyroxine Sodium [Synthroid] 88 mcg PO DAILY 11/08/22 02/13/23 History buPROPion XL [Wellbutrin XL] 300 mg PO DAILY 11/08/22 02/13/23 History estradioL [Estrace] 0.5 mg PO DAILY 11/08/22 02/13/23 History traZODone HCL 300 mg PO HS 11/08/22 02/13/23 History Cyclobenzaprine [Flexeril] 10 mg PO HS 12/19/22 02/13/23 History Chlorhexidine Gluconate [Peridex] 15 ml PO DIRECTED 02/13/23 02/13/23 History Cyclobenzaprine [Flexeril] 10 mg PO BID PRN 02/13/23 02/13/23 History Fluoride (Sodium) [Sodium Fluoride 1 applic DENTAL DIRECTED 02/13/23 02/13/23 History 5000 Plus] Omeprazole [PriLOSEC] 20 mg PO BID 02/13/23 02/13/23 History Pregabalin [Lyrica] 150 mg PO TID 02/13/23 02/13/23 History Allergies Allergy/AdvReac Type Severity Reaction Status Date / Time bee venom protein (honey bee) Allergy Anaphylaxis Verified 02/12/23 20:05 methylphenidate Allergy Rash/Hives Verified 02/12/23 20:05 [From Ritalin] peanut [Peanut Butter] AdvReac Unknown Verified 02/13/23 16:20 Physical Exam Vitals: Vital Signs Pulse Resp BP 02/14/23 11:40 108 H 20 118/85 Results CBC & Chem 7: 02/13/23 05:40 02/13/23 05:40
[2023-02-15 06:47] VITALS: RESP 16; TEMP 97.7
[2023-02-15] MEDS: THIAMINE 100 MG TAB PO SCH (08:18)
[2023-02-15] MEDS: MULTIVITAMINS, THERA 1 EACH TAB PO SCH (08:18)
[2023-02-15] MEDS: NICOTINE 14MG/24HR PATCH TRANSDERM SCH (08:18)
[2023-02-15] MEDS: FOLIC ACID 1 MG TAB PO SCH (08:18)
[2023-02-15] MEDS ORDERED: buPROPion XL 300 MG TAB.ER.24H PO SCH (09:00)
[2023-02-15] MEDS: chlordiazePOXIDE 25 MG CAP PO SCH (09:13)
[2023-02-15] MEDS: PREGABALIN 75 MG CAP PO SCH (09:13)
[2023-02-15 09:15] VITALS: BP 102/65; PULSE 94
--- NOTE | 2023-02-15 10:47 | P.DS ---
Providers Date of admission: 02/13/23 14:33 Expected date of discharge: 02/15/23 Attending physician: Cole Jeronimo MD Consults: 02/13/23 14:52 Consult Physician Routine Consulting Provider: Bing Huang Consult Reason/Comments: H&P Do you want consulting provider notified?: Yes Primary care physician: Cece Pride - Discharge Diagnosis(es) (1) Adjustment disorder with mixed disturbance of emotions and conduct Current Visit: Yes Status: Acute Priority: High (2) Generalized anxiety disorder with panic attacks Current Visit: Yes Status: Chronic Priority: Medium (3) Cocaine use disorder Current Visit: Yes Status: Acute Priority: High (4) Alcohol use disorder Current Visit: Yes Status: Chronic Priority: Medium (5) Cannabis use disorder Current Visit: Yes Status: Chronic Priority: Medium (6) Tobacco use disorder Current Visit: Yes Status: Chronic Priority: Medium Hospital Course: Admission HPI: Patient is a 52-year-old female with significant history of depression, alcohol use, cocaine use disorder, presented to our hospital on 02/13/2023, brought in by police for altered mental status the context of intoxication. Patient presented to the hospital on 02/12/2023, initially presenting as intoxicated however cleared by 2300 on 02/12/2023. She was evaluated at 0130 on 02/13/2023. Patient was initially presenting to the EPS test his disorganized, erratic, with significant psychomotor agitation. Her mood was noted to be labile. She reportedly endorsed suicidal and homicidal ideation to the police however did not recall this to the EPS provider. The patient did sign herself voluntarily on to the psychiatric unit. Upon evaluation on the psychiatric unit, the patient reports that she is feeling significantly better. She does admit to drinking a pint of vodka as well as using crack cocaine. Patient reports that this occurred on 02/12/2023. She reports that she started using in response to relationship stressors. She states that her fianc whom she has been living with has begun using heavily and therefore she decided to leave him. She states that in response, her fianc locked her out of the home and her belongings. She reports that she was feeling significantly hopeless during this situation and began using. Currently, the patient is vehemently denying any suicidal or homicidal ideation, intention, and/or plan. She is currently denying any auditory or visual hallucinations. She is not endorsing any paranoia or other delusions. She reports that she has been trying to leave her fianc so that way she could set healthy boundaries for herself and follow up with her outpatient treatment and subsequent recovery from her own addiction. 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 The patient is not endorsing any significant symptoms of libby or hypomania. She denies any increased goal-directed activity, grandiosity, or mood lability. Hospital course: Upon admission to the unit patient was initially presenting as calm, cooperative and polite. Patient was directable and agreeable to commence treatment. Patient got along well with other patients on the unit and followed unit protocol. Patient was compliant with the medications and denied any side effects throughout hospital course. Patient was started on her home medications and seroquel was added to her regimen to address insomnia and the after effects from crack cocaine use. Patient spoke of her stressors and engaged in therapy both group and individual. Patient was also seen by medical team for history and physical exam. Throughout the course of the hospitalization patient gradually improved with regards to her mood, sleep and was future and goal oriented. She had classes and work over the weekend that she was looking forward to. She has been adherent with her outpatient follow up appointments. On the day of discharge patient denied any suicidal or homicidal ideations intent or plan denied any auditory or visual hallucinations. Patient endorsed wanting to live for her health and family. The patient denied any access to guns or weapons. Patient denied any paranoia and did not endorse any delusions. Patient does not have a significant history of substance abuse however was counseled on abstaining from all substances including alcohol, marijuana, and cocaine. Patient was offered however declined inpatient substance-abuse rehab. Patient was also counseled on the medications and need for regular compliance and was encouraged to follow-up with their outpatient appointment for mental health and also for primary care. Prior to discharge a family meeting will be arranged by social security assessor to answer any questions and ensure safety upon discharge. Mental status exam: General Appearance: Patient appears to be stated age is alert, pleasant, and cooperative. Patient is in no acute distress and has fair hygiene and grooming Behavior: Patient is calmly seated without any agitated behavior. Speech: Patient's speech is fluent and nonpressured. Mood/Affect: Patient reports their mood is "much better", affect is congruent and euthymic to bright. Suicidality/Homicidality: Patient denies having any suicidal or homicidal ideation intent or plan. Perceptions: Patient denies any auditory or visual hallucinations. Though content/process: There is no evidence of any delusional thought content and thought process is linear and goal-directed. Patient is future oriented. Memory and concentration: AOX3, grossly intact for the purposes of this session. Can spell "WORLD" backwards correctly. Judgment and insight: Improved with guarded prognosis Impression: Adjustment disorder with mixed disturbance of emotions and conduct Generalized anxiety disorder, with panic attacks Alcohol use disorder, severe Cocaine use disorder Cannabis use disorder Tobacco use disorder Plan: -Continue with discharge today as patient has improved and stabilized psychiatrically and is not currently an imminent threat to herself and/or others. Patient will remain at chronically elevated risk for harm to self and/or others due to her impulsivity and polysubstance abuse. -Continue medications: Seroquel 50 mg at bedtime for mood augmentation/insomnia Thiamin 100 mg daily for alcohol use disorder Continue home medications of wellbutrin, trazodone, lyrica. -Patient was counseled on the need for medication compliance and appropriate follow-up at mental health and also primary care for medical issues. Patient verbalized understanding and agreed. -Social work to arrange for and conduct family meeting to ensure safety upon discharge and answer any questions/concerns. Social work also to arrange for patients follow up appointments with [facility] for psychiatric care along with follow up with primary care provider. -Patient counseled on abstaining from recreational drugs and marijuana and alcohol. Was informed/educated on the adverse effects on their physical and mental health. Patient verbally agreed and understood. Patient was offered substance abuse treatment however declined at this time. -Patient was instructed to return to the hospital or seek immediate medical care if their psychiatric or medical symptoms do worsen or reoccur. -Psychoeducation and supportive therapy provided to patient. Risks and benefits of pharmacological treatment versus the risks and benefits of nontreatment weight and discussed. Informed consent discussion held. Common side effects of psychotropics discussed such as, but not limited to headache, GI disturbance, sexual dysfunction, movement disorders, sedation, and orthostatic hypotension. Life threatening and blackbox warnings of prescribed medications also discussed. Potential risks of operating a vehicle or heavy machinery discussed with patient at length. Advised on importance of compliance and a reliable and responsible manner. Patient advised to review FDA consumer labeling of all medications prior to taking. Patient verbalized understanding of potential risks, and agrees with current treatment plan. Patient advised to medically contact physician/emergency personnel if any acute changes in condition occur. Vital Signs Temp 97.7 F 02/15/23 06:46 Pulse 94 02/15/23 09:14 Resp 16 02/15/23 06:46 BP 102/65 02/15/23 09:14 Pulse Ox 98 02/15/23 06:46 FiO2 Laboratory Results WBC 9.8 k/uL (3.8-10.6) 02/13/23 05:40 RBC 4.36 m/uL (3.80-5.40) 02/13/23 05:40 Hgb 13.5 gm/dL (11.4-16.0) 02/13/23 05:40 Hct 39.9 % (34.0-46.0) 02/13/23 05:40 MCV 91.4 fL (80.0-100.0) 02/13/23 05:40 MCH 31.0 pg (25.0-35.0) 02/13/23 05:40 MCHC 34.0 g/dL (31.0-37.0) 02/13/23 05:40 RDW 13.0 % (11.5-15.5) 02/13/23 05:40 Plt Count 350 k/uL (150-450) 02/13/23 05:40 MPV 7.3 02/13/23 05:40 Neutrophils % 52 % 02/13/23 05:40 Lymphocytes % 40 % 02/13/23 05:40 Monocytes % 5 % 02/13/23 05:40 Eosinophils % 1 % 02/13/23 05:40 Basophils % 0 % 02/13/23 05:40 Neutrophils # 5.1 k/uL (1.3-7.7) 02/13/23 05:40 Lymphocytes # 3.9 k/uL (1.0-4.8) 02/13/23 05:40 Monocytes # 0.5 k/uL (0-1.0) 02/13/23 05:40 Eosinophils # 0.1 k/uL (0-0.7) 02/13/23 05:40 Basophils # 0.0 k/uL (0-0.2) 02/13/23 05:40 Sodium 133 mmol/L (137-145) L 02/13/23 05:40 Potassium 4.1 mmol/L (3.5-5.1) 02/13/23 05:40 Chloride 101 mmol/L (98-107) 02/13/23 05:40 Carbon Dioxide 25 mmol/L (22-30) 02/13/23 05:40 Anion Gap 7 mmol/L 02/13/23 05:40 BUN 15 mg/dL (7-17) 02/13/23 05:40 Creatinine 0.74 mg/dL (0.52-1.04) 02/13/23 05:40 Est GFR (CKD-EPI)AfAm >90 (>60 ml/min/1.73 sqM) 02/13/23 05:40 Est GFR (CKD-EPI)NonAf >90 (>60 ml/min/1.73 sqM) 02/13/23 05:40 Glucose 79 mg/dL (74-99) 02/13/23 05:[address] Glu mg/dL 102 02/13/23 05:40 Hemoglobin A1c 5.2 % (0.0-6.0) 02/13/23 05:40 Calcium 8.4 mg/dL (8.4-10.2) 02/13/23 05:40 Total Bilirubin 0.7 mg/dL (0.2-1.3) 02/13/23 05:40 AST 111 U/L (14-36) H 02/13/23 05:40 ALT 70 U/L (4-34) H 02/13/23 05:40 Alkaline Phosphatase 107 U/L (38-126) 02/13/23 05:40 Total Protein 5.8 g/dL (6.3-8.2) L 02/13/23 05:40 Albumin 3.5 g/dL (3.5-5.0) 02/13/23 05:40 Triglycerides 83.70 mg/dL (0.00-149.00) 02/13/23 05:40 Cholesterol 168.00 mg/dL (0.00-200.00) 02/13/23 05:40 LDL Cholesterol, Calc 47.3 mg/dL (0.0-131.0) 02/13/23 05:40 VLDL Cholesterol, Calc 16.74 mg/dL (5.00-40.00) 02/13/23 05:40 HDL Cholesterol 104.00 mg/dL (40.00-60.00) H 02/13/23 05:40 Cholesterol/HDL Ratio 1.62 Ratio 02/13/23 05:40 TSH 1.610 mIU/L (0.465-4.680) 02/13/23 05:40 Urine Color Light Yellow 02/13/23 05:40 Urine Appearance Clear (Clear) 02/13/23 05:40 Urine pH 6.0 (5.0-8.0) 02/13/23 05:40 Ur Specific Boomer 1.008 (1.001-1.035) 02/13/23 05:40 Urine Protein Negative (Negative) 02/13/23 05:40 Urine Glucose (UA) Negative (Negative) 02/13/23 05:40 Urine Ketones Trace (Negative) H 02/13/23 05:40 Urine Blood Negative (Negative) 02/13/23 05:40 Urine Nitrite Negative (Negative) 02/13/23 05:40 Urine Bilirubin Negative (Negative) 02/13/23 05:40 Urine Urobilinogen <2.0 mg/dL (<2.0) 02/13/23 05:40 Ur Leukocyte Esterase Negative (Negative) 02/13/23 05:40 Urine Opiates Screen Negative (Negative) 02/13/23 05:40 Urine Methadone Screen Negative (Negative) 02/13/23 05:40 Ur Propoxyphene Screen Negative (Negative) 02/13/23 05:40 Urine Barbiturates Negative (Negative) 02/13/23 05:40 Ur Phencyclidine Scrn Negative (Negative) 02/13/23 05:40 Ur Amphetamine Screen Positive (Negative) A 02/13/23 05:40 U Benzodiazepines Scrn Negative (Negative) 02/13/23 05:40 Urine Cocaine Screen Positive (Negative) A 02/13/23 05:40 U Cannabinoids Screen Negative (Negative) 02/13/23 05:40 Urine Alcohol Negative (Negative) 02/13/23 05:40 Coronavirus (PCR) Not Detected (Not Detectd) 02/13/23 05:40 Allergies Allergy/AdvReac Type Severity Reaction Status Date / Time bee venom protein (honey bee) Allergy Anaphylaxis Verified 02/12/23 20:05 methylphenidate Allergy Rash/Hives Verified 02/12/23 20:05 [From Ritalin] peanut [Peanut Butter] AdvReac Unknown Verified 02/13/23 16:20 Patient Condition at Discharge: Stable Plan - Discharge Summary Discharge Rx Participant: No New Discharge Prescriptions: New QUEtiapine [SEROquel] 50 mg PO HS 30 Days #30 tab Thiamine [Vitamin B-1] 100 mg PO DAILY 30 Days #30 tab Continue Folic Acid 1 mg PO DAILY 30 Days tab buPROPion XL [Wellbutrin XL] 300 mg PO DAILY traZODone HCL 300 mg PO HS Cyclobenzaprine [Flexeril] 10 mg PO HS Omeprazole [PriLOSEC] 20 mg PO BID Chlorhexidine Gluconate [Peridex] 15 ml PO DIRECTED medroxyPROGESTERone [Provera] 2.5 mg PO DAILY 30 Days tab Levothyroxine Sodium [Synthroid] 88 mcg PO DAILY estradioL [Estrace] 0.5 mg PO DAILY Cyclobenzaprine [Flexeril] 10 mg PO BID PRN PRN Reason: Muscle Spasm Pregabalin [Lyrica] 150 mg PO TID Fluoride (Sodium) [Sodium Fluoride 5000 Plus] 1 applic DENTAL DIRECTED Discharge Medication List Folic Acid 1 mg PO DAILY 30 Days tab 05/28/22 [Rx] medroxyPROGESTERone [Provera] 2.5 mg PO DAILY 30 Days tab 05/28/22 [Rx] Levothyroxine Sodium [Synthroid] 88 mcg PO DAILY 11/08/22 [History] buPROPion XL [Wellbutrin XL] 300 mg PO DAILY 11/08/22 [History] estradioL [Estrace] 0.5 mg PO DAILY 11/08/22 [History] traZODone HCL 300 mg PO HS 11/08/22 [History] Cyclobenzaprine [Flexeril] 10 mg PO HS 12/19/22 [History] Chlorhexidine Gluconate [Peridex] 15 ml PO DIRECTED 02/13/23 [History] Cyclobenzaprine [Flexeril] 10 mg PO BID PRN 02/13/23 [History] Fluoride (Sodium) [Sodium Fluoride 5000 Plus] 1 applic DENTAL DIRECTED 02/13/23 [History] Omeprazole [PriLOSEC] 20 mg PO BID 02/13/23 [History] Pregabalin [Lyrica] 150 mg PO TID 02/13/23 [History] QUEtiapine [SEROquel] 50 mg PO HS 30 Days #30 tab 02/15/23 [Rx] Thiamine [Vitamin B-1] 100 mg PO DAILY 30 Days #30 tab 02/15/23 [Rx] Follow up Appointment(s)/Referral(s): [facility] [Outside] - 02/20/23 2:00 pm (02/20/2023 2:00PM - 3:00PM LE RUSHING 02/28/2023 11:00AM - 11:30AM SHIRA LEWIS ) Cece Pride [Primary Care Provider] - 1-2 days Patient Instructions/Handouts: Cocaine Abuse (DC), Depression (DC), Abuse of Alcohol (DC), Cannabis Abuse (DC), Help Prevent Suicide (DC), Anxiety (GEN), Psychotic Disorder (DC) Activity/Diet/Wound Care/Special Instructions: Avoid the use of street drugs and alcohol. Take all prescriptions as prescribed. When you are in need of refills on your medications, please contact your medical provider and/or outpatient psychiatrist to have this done. Please go to scheduled outpatient appointment for aftercare treatment. If symptoms return or become worse, call the crisis line at and/or go to the nearest emergency room for evaluation Discharge/Stand Alone Forms: AA Meetings [facility] Discharge Disposition: HOME SELF-CARE
== END 2023-02-15 14:55 | disposition home or self-care (01) | DRG 755 ==
LOC: EC 19:52 → 3MHU 02-13 14:33
PROVIDERS: ADMIT Psychiatry & Neurology Psychiatry; ATTEND Psychiatry & Neurology Psychiatry
DX: F43.25 Adjustment disorder with mixed disturbance of emotions and conduct (principal); F10.20 Alcohol dependence, uncomplicated; F33.2 Major depressive disorder, recurrent severe without psychotic features; F41.0 Panic disorder [episodic paroxysmal anxiety]; G47.00 Insomnia, unspecified; E03.9 Hypothyroidism, unspecified; F12.10 Cannabis abuse, uncomplicated; F14.10 Cocaine abuse, uncomplicated; F17.210 Nicotine dependence, cigarettes, uncomplicated; F19.959 Other psychoactive substance use, unspecified with psychoactive substance-induced psychotic disorder, unspecified; F41.1 Generalized anxiety disorder; R45.850 Homicidal ideations; I95.9 Hypotension, unspecified; R45.851 Suicidal ideations; Y90.8 Blood alcohol level of 240 mg/100 ml or more; Z79.890 Hormone replacement therapy; E23.0 Hypopituitarism; Z79.899 Other long term (current) drug therapy; Z86.59 Personal history of other mental and behavioral disorders; Z91.51 Personal history of suicidal behavior; Z20.822 Contact with and (suspected) exposure to COVID-19; Z28.21 Immunization not carried out because of patient refusal; Z91.030 Bee allergy status; Z91.010 Allergy to peanuts; M50.30 Other cervical disc degeneration, unspecified cervical region; L72.8 Other follicular cysts of the skin and subcutaneous tissue; M19.90 Unspecified osteoarthritis, unspecified site; K21.9 Gastro-esophageal reflux disease without esophagitis; R13.10 Dysphagia, unspecified; R20.0 Anesthesia of skin; L98.9 Disorder of the skin and subcutaneous tissue, unspecified; Z79.3 Long term (current) use of hormonal contraceptives
CPT/HCPCS: 36415; 80053; 80061; 80306; 81003; 82075; 83036; 84443; 85025; 87635

== ENCOUNTER → 2024-07-23 | Outpatient (CLI) | payer OTHER ==
[2024-07-23 18:22] LABS: Basophils # (A) 0.07 X 10*3/uL (0.00-0.10); Eosinophils # (A) 0.13 X 10*3/uL (0.04-0.35); Eosinophils % (A) 1.8 %; HCT 37.2 % (37.2-46.3); HGB 12.3 g/dL (12.0-15.0); Lymphocytes # (A) 1.48 X 10*3/uL (0.90-5.00); Lymphocytes % (A) 20.4 %; MCH 32.4 pg (27.0-32.0); MCHC 33.1 g/dL (32.0-37.0); MCV 97.9 FL (80.0-97.0); Mean Platelet Volume 9.9 FL (9.5-12.2); Monocytes # (A) 0.47 X 10*3/uL (0.20-1.00); Monocytes % (A) 6.5 %; NRBC Per 100 WBC 0 X 10*3/uL (0.00-0.01); Neutrophils # (A) 5.09 X 10*3/uL (1.80-7.70); Neutrophils % (A) 70.2 %; Platelet Count 312 X 10*3/uL (140-440); RDW 12.9 % (11.5-14.5); WBC 7.25 X 10*3/uL (4.50-10.00)
[2024-07-23 18:48] LABS: % Iron Saturation 22.38 (12.00-45.00); BUN/Creat Ratio 20.86 Ratio (12.00-20.00); Blood Urea Nitrogen 14.6 mg/dL (9.0-27.0); Carbon Dioxide 21.8 mmol/L (21.6-31.8); Chloride 104 mmol/L (96-109); Estradiol 67.1 pg/mL; Glucose 95 mg/dL (70-110); Iron 77 UG/DL (50-170); Potassium 4.8 mmol/L (3.5-5.5); Sodium 135 mmol/L (135-145); Total Iron Binding Capacity 344 UG/DL (228-460)
[2024-07-23 18:49] LABS: ALT 19 U/L (8-44); AST 16 U/L (13-35); Albumin 4.2 g/dL (3.8-4.9); Albumin/Globulin Ratio 2.21 Ratio (1.60-3.17); Alkaline Phosphatase 80 U/L (41-126); Calcium 9.1 mg/dL (8.7-10.3); Ferritin 77.1 ng/mL (10.0-291.0); Globulin 1.9 g/dL (1.6-3.3); Total Bilirubin 0.3 mg/dL (0.3-1.2); Total Protein 6.1 g/dL (6.2-8.2)
[2024-07-23 19:05] LABS: Follicle Stimulating Hormone 9.1 mIU/mL
== END | disposition home or self-care (01) ==
LOC: LABWHC1 13:10
PROVIDERS: ATTEND Nurse Practitioner Family
DX: F32.A Depression, unspecified (principal); E28.39 Other primary ovarian failure; F45.8 Other somatoform disorders; E03.9 Hypothyroidism, unspecified; Z79.899 Other long term (current) drug therapy
CPT/HCPCS: 36415; 80053; 82670; 82728; 83001; 83540; 83550; 84144; 84402; 84403; 84443; 85025

== ENCOUNTER → 2025-02-10 | Outpatient (CLI) | payer OTHER ==
--- NOTE | 2025-02-10 08:58 | MR ---
EXAMINATION TYPE: MR shoulder LT wo/w con DATE OF EXAM: 02/10/2025 7:41 AM COMPARISON: Left shoulder x-rays January 07, 2025 CLINICAL INDICATION: Female, 54 years old with history of M25.512 acute pain L shoulder, Lt arm pain, decreased range of motion, numbness. Symptoms for 3 months. IV Contrast: 5 cc Gadobutrol (None if empty) TECHNIQUE: Multiplanar, multisequence images of the left shoulder is performed without and with 5 mL intravenous Gadobutrol gadolinium contrast. FINDINGS: Rotator Cuff: Increased signal in the distal infraspinatus tendon. Intact supraspinatus tendon. Heter ogeneous but intact subscapularis tendon with areas of increased signal. Rotator cuff muscle bulk is preserved. Acromioclavicular Joint: Small bony fragments at level of the acromion particular joint could reflect old trauma or os acromiale. Glenohumeral Joint: Moderate to large size joint effusion is present. Narrowing is seen greatest infe riorly. No significant spurring. Labrum: Increased signal superiorly consistent with tear. Biceps Tendon: The long head of biceps is in normal location within bicipital groove. Bone marrow signal: No focal abnormal marrow signal is appreciated. No suspicious postcontrast enhanc ement is seen. Other: No additional significant abnormality is appreciated. IMPRESSION: 1. Superior labral tear. 2. Moderate to large size lateral humeral joint effusion. At least moderate-sized glenohumeral joint narrowing. 3. Possible os acromiale versus old trauma at the acromioclavicular joint. 4. Some tendinosis of the subscapularis tendon. More prominent tendinosis of the infraspinatus tendon . [facility], , 02/10/2025 8:56 AM
== END | disposition home or self-care (01) ==
LOC: RADMRIMAIN 06:43
PROVIDERS: ATTEND Family Medicine
DX: S43.432A Superior glenoid labrum lesion of left shoulder, initial encounter (principal); M19.012 Primary osteoarthritis, left shoulder; M25.412 Effusion, left shoulder; M67.814 Other specified disorders of tendon, left shoulder; X58.XXXA Exposure to other specified factors, initial encounter
CPT/HCPCS: 73223; A9585

== ENCOUNTER → 2025-02-13 | Outpatient (CLI) | payer OTHER ==
--- NOTE | 2025-02-13 15:20 | XR ---
EXAMINATION TYPE: XR cervical spine comp DATE OF EXAM: 02/13/2025 3:11 PM COMPARISON: None. CLINICAL INDICATION: Female, 54 years old with history of M54.13 M54.12, TECHNIQUE: Frontal, lateral, oblique, swimmers, and open mouth view of the cervical spine are obtaine d. FINDINGS: The cervical spine is visualized in its entirety from C1 thru the top of T1 level. It is s atisfactory in alignment without evidence of acute fracture or dislocation. The pre-vertebral soft t issue appears within normal limits. Severe degenerative disc space narrowing primarily at C4-5 and C5 -6 and to a lesser extent C7-T1. There is reversal of the normal cervical lordosis at these levels. T he C1-C2 articulation is unremarkable on the open mouth view. The oblique images are within normal l imits. IMPRESSION: No acute fracture or dislocation is seen in the cervical spine.ICD 10 NO FRACTURE, INITI AL EVALUATION [facility], , 02/13/2025 3:18 PM
== END | disposition home or self-care (01) ==
LOC: RADXRMAIN 14:39
PROVIDERS: ATTEND Family Medicine
DX: M50.121 Cervical disc disorder at C4-C5 level with radiculopathy (principal)
CPT/HCPCS: 72050

== ENCOUNTER → 2025-04-05 | Outpatient (CLI) | payer OTHER ==
[2025-04-05 18:08] LABS: Basophils # (A) 0.04 X 10*3/uL (0.00-0.10); Basophils % (A) 0.6 %; Eosinophils % (A) 1.4 %; HCT 44.3 % (37.2-46.3); HGB 14.4 g/dL (12.0-15.0); Lymphocytes # (A) 2.48 X 10*3/uL (0.90-5.00); Lymphocytes % (A) 35.3 %; MCHC 32.5 g/dL (32.0-37.0); MCV 95.3 FL (80.0-97.0); Mean Platelet Volume 9.9 FL (9.5-12.2); Monocytes # (A) 0.36 X 10*3/uL (0.20-1.00); Monocytes % (A) 5.1 %; NRBC Per 100 WBC 0 X 10*3/uL (0.00-0.01); Neutrophils # (A) 4.03 X 10*3/uL (1.80-7.70); Neutrophils % (A) 57.3 %; Platelet Count 358 X 10*3/uL (140-440); RBC 4.65 X 10*6/uL (4.10-5.20); RDW 12.9 % (11.5-14.5); WBC 7.03 X 10*3/uL (4.50-10.00)
[2025-04-05 21:01] LABS: INR <0.93 sec (0.93-1.11); Prothrombin Time 10.3 sec (9.9-11.9)
[2025-04-06 20:36] LABS: BUN/Creat Ratio 9.45 Ratio (12.00-20.00); Blood Urea Nitrogen 10.4 mg/dL (9.0-27.0); Calcium 9.3 mg/dL (8.7-10.3); Carbon Dioxide 12.3 mmol/L (21.6-31.8); Chloride 110 mmol/L (96-109); Glucose 78 mg/dL (70-110); Sodium 146 mmol/L (135-145)
== END | disposition home or self-care (01) ==
LOC: LABWHC1 14:24
PROVIDERS: ATTEND Nurse Practitioner Family
DX: Z01.818 Encounter for other preprocedural examination (principal); Z98.890 Other specified postprocedural states
CPT/HCPCS: 36415; 80048; 85025; 85610

== ENCOUNTER 2025-04-27 05:41 | Day surgery (SDC) | payer OTHER ==
--- NOTE | 2025-04-26 08:27 | P.HPOR ---
History of Present Illness H&P Date: 04/26/25 Chief Complaint: Left hip pain The patient is a 54-year-old female who presents with progressive left hip pain for the past year. She is having pain with any weightbearing activities along with significant stiffness. She notes she limps. She has tried medications without much relief. She notes daily pain that significantly limits her. Review of Systems Per HPI Past Medical History Past Medical History: GERD/Reflux, Osteoarthritis (OA), Skin Disorder, Thyroid Disorder Additional Past Medical History / Comment(s): Difficulty swallowing @ times, Hx. of Helena's Syndrome Hypotension, cervical pain, DDD. cyst on back side and groin area- tested will see photo stylist end of month. numbness in arms and nerve pain. 3 herniated discs. History of Any Multi-Drug Resistant Organisms: None Reported Past Surgical History: Cholecystectomy Additional Past Surgical History / Comment(s): PAIN CLINIC PROCEDURES Past Anesthesia/Blood Transfusion Reactions: No Reported Reaction Additional Past Anesthesia/Blood Transfusion Reaction / Comment(s): no blood transfusions to date. sensitive to not being able to breath through nose and mouth - doesnt like 02 on unless needed after sedated Past Psychological History: Anxiety, Depression, Panic Disorder Smoking Status: Former smoker Past Alcohol Use History: Occasional Additional Past Alcohol Use History / Comment(s): Smoker of 1/2 PPD for 35 yrs on and off, quit 2023, will have "Hits of a cigarette occasionally. Past Drug Use History: Marijuana Additional Drug Use History / Comment(s): no use in 4 -months went to treatment- no longer uses cocaine. Gummies-marijuana -instrructed no marijuanna use 24 hrs prior to procedure. - Past Family History Mother Family Medical History: Cancer Additional Family Medical History / Comment(s): breast cancer, defibrillator, skin cancer Father Family Medical History: Cancer Additional Family Medical History / Comment(s): mini stoke Sister(s) Family Medical History: Cancer Additional Family Medical History / Comment(s): skin cancer. Medications and Allergies Home Medications Medication Instructions Recorded Confirmed Type Levothyroxine Sodium [Synthroid] 88 mcg PO DAILY 11/08/22 04/23/25 History traZODone HCL 300 mg PO HS 11/08/22 04/23/25 History Chlorhexidine Gluconate [Peridex] 15 ml PO DIRECTED 02/13/23 04/23/25 History Fluoride (Sodium) [Sodium Fluoride 1 applic DENTAL DIRECTED 02/13/23 04/23/25 History 5000 Plus] Pregabalin [Lyrica] 150 mg PO TID 02/13/23 04/23/25 History Compound Hormone(Unknown Dose 1 dose PO QAM 04/23/25 04/23/25 History Dextromethorphan HBr/Bupropion 1 each PO BID 04/23/25 04/23/25 History [Auvelity ER 45-105 mg Tablet] Fish Oil(Unknown Dose) 1 dose PO 1600 04/23/25 04/23/25 History Vit B Complex(Unknown Dose) 1 dose PO QAM 04/23/25 04/23/25 History Vitamin E(Unknown Dose) 1 dose PO QAM 04/23/25 04/23/25 History busPIRone HCL 15 mg PO BID 04/23/25 04/23/25 History tiZANidine HCL [Zanaflex] 4 mg PO DIRECTED 04/23/25 04/23/25 History Allergies Allergy/AdvReac Type Severity Reaction Status Date / Time bee venom protein (honey bee) Allergy Anaphylaxis Verified 04/23/25 13:10 methylphenidate Allergy Rash/Hives Verified 04/23/25 13:10 [From Ritalin] peanut [Peanut Butter] AdvReac Unknown Verified 04/23/25 13:10 Physical Examination - Hip left Gait: antalgic Tenderness with palpation: anterior Pain with motion: internal rotation and hip flexion ROM: flexion: 90 degrees ROM: internal rotation: 0 degrees (With pain) ROM: external rotation: 60 degrees Crepitus with motion: Yes Strength: extension: 5/5 Strength: flexion: 5/5 Strength: abduction: 5/5 Tests: impingement tests: positive, instability tests: positive Results The patient is a well-developed well-nourished female approximately 5 foot tall, 110 pounds of mesomorphic habitus. HEENT exam is nonfocal. Neck is supple. She has painful passive motion of the left hip. She has an antalgic gait pattern. Clinically she has shortening of the left lower extremity compared to the right. Her distal neurovascular exam appears intact in the left lower extremity. - Diagnostic results Hip x-ray: image reviewed (X-rays of the left hip obtained the office show severe osteoarthrosis with [id number] changes and subchondral sclerosis.) Assessment and Plan Assessment: Left hip severe osteoarthrosis Plan: I talked to the patient at length regarding her condition along with treatment options. At this point she is quite symptomatic having pain and stiffness related to her left hip osteoarthrosis despite conservative measures. After a thorough discussion she opts to proceed with surgery. Risks and benefits were discussed at length in layman's terms. We will institute DVT prophylaxis postoperatively.
[~2025-04-27 05:41] MED LIST changes: -LACTATED RINGERS 1,000 ML IV SCH; -LIDOCAINE 1% (10MG/ML) FOR IV START INTRADERMA PRN; +TRANEXAMIC 1,000 MG/100ML-NACL 1,000 MG in SALINE 1 100ML.BAG IVPB PRN
[2025-04-27] MEDS: IV FLUID CONTINUATION 1,000 ML IV ONE ×2 (06:43→07:35)
[2025-04-27] MEDS: LACTATED RINGERS 1,000 ML IV SCH (06:54)
[2025-04-27] MEDS: DEXAMETHASONE SOD PHOSPHATE 4 MG/ML 1 ML VIAL IVP STA (06:55)
[2025-04-27] MEDS: ACETAMINOPHEN TAB 500 MG TAB PO PRN (06:55)
[2025-04-27] MEDS: ONDANSETRON 4 MG/2 ML VIAL IVP ONE (06:55)
[2025-04-27] MEDS: MELOXICAM 7.5 MG TAB PO PRN (06:56)
[2025-04-27] MEDS ORDERED: HYDROmorphone 0.5 MG/0.5 ML SYRINGE IVP PRN ×2 (07:00→09:13)
[2025-04-27] MEDS: MIDAZOLAM 2 MG/2 ML VIAL IV PRN (07:10)
[2025-04-27] MEDS: fentaNYL (PF) 50 MCG/ML 2 ML AMP IVP PRN (07:11)
[2025-04-27] MEDS ORDERED: TRANEXAMIC 1,000 MG/100ML-NACL PREMIX BAG ONE (07:31)
[2025-04-27] MEDS ORDERED: ROPIVACAINE 5 MG/ML 30 ML VIAL ONE (07:31)
[2025-04-27] MEDS ORDERED: DEXAMETHASONE SOD PHOSPHATE 4 MG/ML 1 ML VIAL ONE (07:31)
[2025-04-27] MEDS ORDERED: PROPOFOL 10 MG/ML 20 ML VIAL IV ONE (07:31)
[2025-04-27] MEDS ORDERED: MIDAZOLAM 2 MG/2 ML VIAL ONE (07:31)
[2025-04-27] MEDS: ceFAZolin 2 GM in DEXTROSE 5% IN WATER 50 ML IVPB PRN (07:36)
[2025-04-27] MEDS: ceFAZolin 3,000 MG in SODIUM CHLORIDE 0.9% IRRIGATIO 3,000 ML IRRIGATION ONE (08:02)
[2025-04-27] MEDS ORDERED: NALOXONE 0.4 MG/ML 1 ML VIAL IV PRN (09:13)
[2025-04-27] MEDS ORDERED: hydrOXYzine pamoate 25 MG CAP PO PRN (09:13)
[2025-04-27] MEDS ORDERED: MAGNESIUM HYDROXIDE 2,400 MG/30 ML CUP PO PRN (09:13)
--- NOTE | 2025-04-27 09:17 | XR ---
Fluoroscopy INDICATION: Pain FINDINGS: Fluoroscopy time: 20 seconds. Total dose area product (DAP) in uGy*m?, mGy*cm? (or similar): 0.6053 Images obtained: 4. Images document left hip replacement IMPRESSION: 1. Documentation of fluoroscopy. [facility], , 04/27/2025 9:15 AM
--- NOTE | 2025-04-27 09:21 | FL ---
Fluoroscopy INDICATION: Pain FINDINGS: Fluoroscopy time: 20 seconds. Total dose area product (DAP) in uGy*m?, mGy*cm? (or similar): 0.6053 Images obtained: 0. Images document left hip replacement IMPRESSION: 1. Documentation of fluoroscopy. [facility], , 04/27/2025 9:19 AM
--- NOTE | 2025-04-27 09:36 | P.OP ---
Date of Procedure: 04/27/25 Preoperative Diagnosis: Left hip severe osteoarthrosis Postoperative Diagnosis: Same Procedure(s) Performed: Left total hip arthroplastypress-fitanterior approach Implants: DePuy Corial size 11 press-fit 125 degreestandard collared femoral stem, 36+1.5 ceramic femoral head, 52 mm [place] acetabular shell with neutral polyethylene liner. Anesthesia: spinal Surgeon: James Short Senior Radiation Protection Technician #1: León Kay Estimated Blood Loss (ml): 200 Pathology: none sent Condition: stable Disposition: PACU Indications for Procedure: The patient is a 54-year-old female who presents with progressive left hip pain secondary to osteoarthrosis despite conservative measures. A discussion of the risks and benefits of operative intervention versus continued conservative measures was made with the patient. She opted to proceed with surgery. Operative risks include infection, neurovascular 3, development of blood clots, fracture, leg length discrepancy, instability, and possible need for subsequent procedures was discussed. Operative Findings: As below Description of Procedure: The patient was brought to the operating room, and after induction of spinal anesthesia was placed supine on the Mirna table. Positioning was checked with fluoroscopy. The left hip was then prepped and draped in a normal fashion. A 12 cm incision was then made starting 2 fingerbreadths distal and 3 finger breaths posterior to the ASIS in line with the proximal femur. The skin was incised sharply. Subcutaneous tissues were divided sharply. Electrocautery was used for hemostasis. The fascia was split in line with skin incision. The interval between the sartorius and tensor fascia malcolm was then bluntly developed. The posterior fascia was opened with electrocautery. The lateral circumflex vessels were identified and cauterized prior to sectioning. A retractor was placed along the superior femoral neck as well as the anterior acetabular rim. A wide capsulotomy was performed. The neck cut was then made at a 45 angle to the shaft approximately 1 1/2 cm above the level of the lesser trochanter. The head was extracted. Attention was then paid towards preparing the acetabulum. Anterior and posterior retractors were placed. The remaining capsular labral tissue sharply debrided clearly defining the acetabular margins. I began reaming with a 47 mm reamer taking care to initi ally medialize then reaming at 45 of abduction and 20 of anteversion. Sequential reaming is performed up to 51 mm. A trial 52 mm acetabular shell was inserted in the same orientation and was fully seated. There was good rim fit and stability. Positioning was checked with fluoroscopy. The final 52 mm acetabular shell was inserted again at 45 of abduction and 20 of anteversion. This was fully seated. There was good rim fit and stability. Again fluoroscopy was used to check the adequacy of placement. A neutral polyethylene liner was gently impacted. Care was taken to avoid any soft tissue interposition. Pulsatile lavage was utilized. Attention was then paid towards preparing the proximal femur. The saddle region was cleared of soft tissue. A canal finder was used to find the femoral canal. Sequential broaching was performed up to size 11 taking care to lateralize proximally. A calcar mill was used to fashion the medial calcar. There was good rotational stability. A 125 degree standard neck along with a 36 mm +1.5 head was placed. The hip was gently reduced. Fluoroscopy was used to check the adequacy of positioning along with leg lengths. I felt both were good. The hip was gently dislocated. The trial components were removed. The final size 11 collared 125 degree standard collared press-fit femoral stem was inserted parallel to the posterior cortex. This was fully seated and there was good rotational stability. A 36 mm +1.5 ceramic femoral head was placed. This was gently impacted. The hip was then gently reduced. Final fluoroscopic view showed adequate placement implant along with cheondoism of leg length. Stability was checked with 80 of external rotation and 60 of extension of the right hip. The wound was irrigated with sterile lavage. The fascia was closed with running 0 Vicryl suture. There was minimal drainage therefore a deep drain was not placed. The second dose of IV TXA was given. The subcutaneous tissues were reapproximated interrupted 2-0 Vicryl sutures. The skin was reapproximated with 3-0 subcuticular strata fix suture. Skin tape and adhesive was applied. A sterile dressing was applied. The patient was then awoken from sedation and transferred to recovery room in good condition. Blood loss was estimated at 200 mL. No complications were incurred. Sponge and needle counts were correct at the end of the case. León CHOPRA assisted during the major components is case to include exposure, bone resection, implantation, and closure.
[2025-04-27] MEDS: HYDROcodone/APAP 5-325MG 1 EACH TAB PO PRN (10:12)
--- NOTE | 2025-04-27 10:12 | XR ---
EXAMINATION TYPE: XR Hip Limited LT DATE OF EXAM: 04/27/2025 9:53 AM COMPARISON: None. CLINICAL INDICATION: Female, 54 years old with history of Status post hip surgery, assess surgical al ignment, pain TECHNIQUE: AP view(s) obtained. FINDINGS: Left hip prosthesis present. No acute fracture post replacement. Postsurgical soft tissue changes pre sent. IMPRESSION: 1. No acute osseous abnormality post left hip replacement [facility], , 04/27/2025 10:10 AM
[2025-04-27] MEDS ORDERED: tiZANidine 4 MG TAB PO PRN (10:51)
--- NOTE | 2025-04-27 10:53 | P.ANPRN ---
Procedure Note - Anesthesia - Nerve Block Performed Left Edgard Single Time Out Performed: Yes (0710) Date of Procedure: 04/27/25 Procedure Start Time: 07:11 Procedure Stop Time: 07:15 Location of Patient: PreOp Indication: Acute Post-Operative Pain, Requested by Surgeon Specifically requested for management of pain by DrTiffanie: James Short Sedation Type: Sedate with meaningful contact maintained Preparation: Sterile Prep Position: Supine Catheter: None Needle Types: Pajunk Needle Gauge: 21 Ultrasound used to visualize needle placement: Yes Ultrasound used to observe medication spread: Yes Injectate: 0.5% Ropivacaine (see comment for volume) (30cc+decadron 4mg) Blood Aspirated: No Pain Paresthesia on Injection Noted: No Resistance on Injection: Normal Image Stored and Saved: Yes Events: Uneventful and Well Tolerated
[2025-04-27] MEDS: SCOPOLAMINE 1 MG/72 HR PATCH TRANSDERM ONE (10:59)
[2025-04-27] MEDS: HYDROmorphone 1 MG/ML 1 ML SYRINGE IVP PRN (11:24)
[2025-04-27] MEDS: ceFAZolin 2 GM in DEXTROSE 5% IN WATER 50 ML IVPB SCH (15:02)
[2025-04-27] MEDS: PREGABALIN 75 MG CAP PO SCH (15:03)
[2025-04-27] MEDS: HYDROcodone/APAP 7.5-325MG 1 EACH TAB PO PRN (17:24)
[2025-04-27] MEDS: SENNOSIDES-DOCUSATE SODIUM 1 EACH TAB PO SCH (21:32)
[2025-04-27] MEDS: traZODone HCL 100 MG TAB PO SCH (21:33)
[2025-04-27] MEDS: busPIRone HCl 5 MG TAB PO SCH (21:34)
[2025-04-27] MEDS: BUPROPION PO SCH (21:35)
[2025-04-27] MEDS: DEXTROMETHORPHAN HBR PO SCH (21:35)
--- NOTE | 2025-04-27 22:32 | CONS ---
CONSULTATION REASON FOR CONSULTATION: Advice regarding anxiety and other medical issues, requested by Surgery. HISTORY OF PRESENT ILLNESS: This 54-year-old woman with a past medical history of hypothyroidism, history of [place] syndrome, hypertension, cervical pain, anxiety, depression, being followed by Underwent left total hip joint arthroplasty. There is no history of any fever, rigors, or chills. The patient is closely monitored. PAST MEDICAL HISTORY: Reviewed. Includes GERD, hypothyroidism, Helena syndrome, and history of hypertension. Rest of the chart is also reviewed. HOME MEDICATIONS: Reviewed. Include Peridex. Dose and rest of medications reviewed. ALLERGIES: Bee venom. FAMILY HISTORY: History of breast cancer and skin cancer. SOCIAL HISTORY: Previous smoking. REVIEW OF SYSTEMS: Fourteen-point review of systems negative except as mentioned earlier. PHYSICAL EXAMINATION: VITAL SIGNS: Pulse is 68, blood pressure 148/96, and respirations 20. HEENT: Conjunctivae normal. CARDIOVASCULAR: S1, S2. RESPIRATION: Breath sounds diminished at the bases. No rhonchi, no crackles. ABDOMEN: Soft. EXTREMITIES: Legs, status post hip surgery. NERVOUS SYSTEM: No focal deficits. LABORATORY DATA: Not available. Previous labs are acceptable. ASSESSMENT: 1. Status post left total hip joint arthroplasty. 2. History of anxiety, depression, and panic disorder. 3. History of degenerative joint disease. 4. History of Helena syndrome and hypotension. 5. Remote history of nicotine dependence. RECOMMENDATION: This 54-year-old woman presented with multiple complex medical issues. Recommend to continue the current medications and symptomatic treatment. Otherwise, resume the home medications. Monitor blood pressure closely and DVT prophylaxis. Incentive spirometer. Follow the patient closely with you. The patient may be asked to follow up with primary physician closely after discharge. MMODL / IJN: [id number] / MTDD
[2025-04-28 08:00] LABS: Basophils # (A) 0.01 X 10*3/uL (0.00-0.10); Basophils % (A) 0.1 %; Eosinophils # (A) 0.04 X 10*3/uL (0.04-0.35); Eosinophils % (A) 0.4 %; HCT 30.5 % (37.2-46.3); HGB 10.1 g/dL (12.0-15.0); Lymphocytes # (A) 2.55 X 10*3/uL (0.90-5.00); MCH 31.5 pg (27.0-32.0); MCHC 33.1 g/dL (32.0-37.0); Mean Platelet Volume 9.7 FL (9.5-12.2); Monocytes # (A) 0.73 X 10*3/uL (0.20-1.00); Monocytes % (A) 7.7 %; NRBC Per 100 WBC 0 X 10*3/uL (0.00-0.01); Neutrophils % (A) 64.5 %; Platelet Count 269 X 10*3/uL (140-440); RBC 3.21 X 10*6/uL (4.10-5.20); RDW 13.2 % (11.5-14.5); WBC 9.46 X 10*3/uL (4.50-10.00)
[2025-04-28] MEDS ORDERED: VIT B COMPLEX PO SCH (09:00)
[2025-04-28] MEDS: LEVOTHYROXINE 88 MCG TAB PO SCH (09:48)
[2025-04-28] MEDS: VITAMIN E (DL,TOCOPHERYL ACET) 400 UNIT (180 MG) CAP PO SCH (09:48)
[2025-04-28] MEDS: ATOMOXETINE HCL 100 MG PO SCH (09:53)
[2025-04-28] MEDS: RIVAROXABAN 10 MG TAB PO SCH (09:59)
[2025-04-28] MEDS: [UNRECOGNIZED DRUG - OTHER] PO SCH (10:55)
[2025-04-28] MEDS: BIEST PO SCH (10:55)
--- NOTE | 2025-04-28 12:44 | P.PN ---
Subjective Progress Note Date: 04/28/25 Principal diagnosis: Left hip osteoarthritis Patient was seen at bedside this morning sitting up playing cards with boyfriend. Patient says she is having a lot of pain at this time. She says she did do well with therapy however and walked out of the hallway and up no stairs. She says she is getting up to the bathroom under her own power using walker to aid with ambulation. Patient is hoping stay 1 more night for additional pain control and therapy. Objective - Vital Signs Vital signs: Vital Signs Temp 98.1 F 04/28/25 07:14 Pulse 85 04/28/25 07:14 Resp 16 04/28/25 07:14 BP 112/76 04/28/25 07:14 Pulse Ox 97 04/28/25 07:14 FiO2 Intake & Output 04/27/25 04/28/25 04/28/25 18:59 06:59 18:59 Intake Total 751 Output Total 200 Balance 551 Weight 51.9 kg Intake: IV 751 Output: Estimated Blood Loss 200 Other: Voiding Method Toilet # Voids 1 5 1 - Exam Left hip: Incision is clean, dry, and intact. The exofin fusion tape is in good condition. There is minimal soft tissue swelling and ecchymosis surrounding the medial and lateral aspects of the incision. Calf is soft, no tenderness with palpation. Plantar flexion, dorsiflexion, EHL, FHL are intact. Sensory exam to light touch throughout the extremity is intact, dorsal pedis pulses 2+. - Labs CBC & Chem 7: 04/28/25 03:39 Labs: Abnormal Lab Results - Last 24 Hours (Table) 04/28/25 Range/Units 03:39 RBC 3.21 L (4.10-5.20) X 10*6/uL Hgb 10.1 L (12.0-15.0) g/dL Hct 30.5 L (37.2-46.3) % Assessment and Plan Assessment: 1. Left hip osteoarthritis -Postop day 1 status post direct anterior left total hip arthroplasty Plan: 1. Left hip osteoarthritis -direct anterior left total hip arthroplasty performed yesterday, 04/27/2025. Patient stable at bedside this morning with postoperative dressing in place over left hip. Incision appears to be chani an, dry, intact. Negative for any drainage. Discontinued Dilaudid 1 mg. Dilaudid only as needed. Continue with [place] for pain. Weightbearing as tolerated with walker. PT/OT daily. Plan for discharge home tomorrow with health services. 2. Appreciate medical management 3. Pain management -[place] 4. DVT prophylaxis -Xarelto 5. GI prophylaxis - senna 6. PT/OT -weightbearing as tolerated with walker 7. Encourage incentive spirometer use 8. Discharge planning -plan for discharge home tomorrow with health services Time with Patient: Less than 30
--- NOTE | 2025-04-28 13:15 | PN ---
PROGRESS NOTE DATE OF SERVICE: 04/28/2025 SUBJECTIVE: This is a 54-year-old woman who was admitted after left total hip joint arthroplasty, is improving significantly. No chest pain. No palpitation. OBJECTIVE: VITAL SIGNS: Pulse is 85, blood pressure 112/76, and respirations 16. CHEST: Clear to auscultation. CARDIOVASCULAR: S1 and S2. ABDOMEN: Soft. LEGS: Status post surgery. LABORATORY DATA: Hemoglobin is 10.1. ASSESSMENT: 1. Status post left total hip joint arthroplasty. 2. History of anxiety, depression, panic disorder. 3. History of degenerative joint disease. 4. History of Helena syndrome and hypotension. 5. Remote history of nicotine dependence. RECOMMENDATIONS: Recommend to continue current management and continue symptomatic treatment. Otherwise, resume the home medications. Closely follow with the primary physician. Rest of the recommendations per Orthopedic Surgery. MMODL / IJN: [id number] /
[2025-04-28 14:02] VITALS: BMI 21.6
[2025-04-28] MEDS: HYDROmorphone 0.5 MG/0.5 ML SYRINGE IVP PRN (14:10)
[2025-04-28] MEDS: CALCIUM CARBONATE 500 MG CHEWABLE PO PRN (16:57)
[2025-04-29 09:31] VITALS: BP 114/67; PULSE 83; RESP 16; TEMP 98.2
--- NOTE | 2025-04-29 12:29 | P.DS ---
Providers Date of admission: 04/28/2025 Expected date of discharge: 04/29/25 Attending physician: James Short Consults: 04/27/25 09:13 Consult Physician Stat Consulting Provider: Ellie Pina Reason/Comments: medical management s/p direct anterior left total hip arthroplasty Do you want consulting provider notified?: Yes Primary care physician: Dewayne Hernandez [facility] Course: Date of admission: 04/27/2025 Date of discharge: 04/29/2025 Admission diagnosis: Left hip osteoarthritis Discharge diagnosis: Same Attending physician: Dr. Short Surgical procedures: Direct anterior left total hip arthroplasty Brief history: Patient is a 54-year-old female with a history of progressive primary left hip osteoarthritis. At this point patient has failed conservative treatment measures and has opted to proceed with a elective left total hip arthroplasty. Hospital course: Details of patient's surgery can be found in operative report. Patient tolerated the procedure well and was subsequently transported to orthopedic floor. Patient's orthopeidc and medical care was provided daily. Patient had daily laboratory tests performed for evaluation of overall blood counts. Patient had daily physical therapy to include strengthening range of motion as well as education with walker ambulation. Patient was treated with Xarelto for their postoperative DVT prophylaxis during their inpatient stay. Patient was noted to have a relatively uneventful postoperative course. Patient reported satisfactory pain control with oral pain medications by postoperative day 2. Patient showed satisfactory progress with physical therapy. Patient moved steadily through the program and had no difficulty meeting the goals by postoperative day 2. Given patient's otherwise satisfactory course and having met physical therapy goals, plan is to discharge patient home with health services on postoperative day 2. Discharge condition/disposition: Patient will be discharged home with health services services in stable condition. Discharge medications: Instructions are given on resumption of patient's normal daily medications per primary care recommendation, in addition patient will be prescribed Auxier; senna; Eliquis 2.5 milligrams twice daily x 2 weeks. Discharge instructions: 1. Wound care and infection precautions, keep incision dry and covered while showering, no lotions, creams, moisturizers. No soaking, tubs, pools, hottubs. Do not scrub over the incision. 2. Weight-bear as tolerated with walker / cane until follow-up. 3. Ice and elevate when necessary. Do not exceed 20 minutes per hour with ice pack. 4. Utilize compression sleeve until seen at first follow up appointment. 5. Visiting nursing care. 6. Home physical therapy. 7. Pain meds and anticoagulants per prescription. 8. Pain medication has potential to cause constipation. Increase oral fluid and fiber intake. Contact primary care provider if you have not had a bowel movement within 48 hours after discharge 9. No anti-inflammatory medication until discussed at first post operative visit, this including Motrin, Aleve, Mobic, Diclofenac. 10. Follow up in office at 2 weeks postop with Rey Arguello PA-C / León Kay PA-C 11. Follow up with your primary care doctor 7-10 days after discharge. 12. Contact [facility] with any questions, . Assessment: Left hip osteoarthritis Procedures: Direct anterior left total hip arthroplasty Patient Condition at Discharge: Good Plan - Discharge Summary Discharge Rx Participant: Yes New Discharge Prescriptions: New Apixaban [Eliquis] 2.5 mg PO BID #60 tab Sennosides/Docusate Sodium [Senna Plus 8.6-50 mg Softgel] 1 each PO DAILY #20 capsule HYDROcodone/APAP 7.5-325MG [Auxier 7.5-325] 1 tab PO Q6HR PRN #28 tab PRN Reason: Pain No Action traZODone HCL 300 mg PO HS Chlorhexidine Gluconate [Peridex] 15 ml PO DIRECTED Dextromethorphan HBr/Bupropion [Auvelity ER 45-105 mg Tablet] 1 each PO BID Vitamin E(Unknown Dose) 1 dose PO QAM busPIRone HCL 15 mg PO BID Levothyroxine Sodium [Synthroid] 88 mcg PO DAILY Pregabalin [Lyrica] 150 mg PO TID Fluoride (Sodium) [Sodium Fluoride 5000 Plus] 1 applic DENTAL DIRECTED tiZANidine HCL [Zanaflex] 4 mg PO Q8HR PRN PRN Reason: Spasms Compound Hormone(Unknown Dose 1 dose PO QAM Vit B Complex(Unknown Dose) 1 dose PO QAM Fish Oil(Unknown Dose) 1 dose PO 1600 Atomoxetine HCl [Strattera] 100 mg PO QAM Discharge Medication List Levothyroxine Sodium [Synthroid] 88 mcg PO DAILY 11/08/22 [History] traZODone HCL 300 mg PO HS 11/08/22 [History] Chlorhexidine Gluconate [Peridex] 15 ml PO DIRECTED 02/13/23 [History] Fluoride (Sodium) [Sodium Fluoride 5000 Plus] 1 applic DENTAL DIRECTED 02/13/23 [History] Pregabalin [Lyrica] 150 mg PO TID 02/13/23 [History] Compound Hormone(Unknown Dose 1 dose PO QAM 04/23/25 [History] Dextromethorphan HBr/Bupropion [Auvelity ER 45-105 mg Tablet] 1 each PO BID 04/23/25 [History] Fish Oil(Unknown Dose) 1 dose PO 1600 04/23/25 [History] Vit B Complex(Unknown Dose) 1 dose PO QAM 04/23/25 [History] Vitamin E(Unknown Dose) 1 dose PO QAM 04/23/25 [History] busPIRone HCL 15 mg PO BID 04/23/25 [History] tiZANidine HCL [Zanaflex] 4 mg PO Q8HR PRN 04/23/25 [History] Atomoxetine HCl [Strattera] 100 mg PO QAM 04/26/25 [History] Apixaban [Eliquis] 2.5 mg PO BID #60 tab 04/29/25 [Rx] HYDROcodone/APAP 7.5-325MG [Auxier 7.5-325] 1 tab PO Q6HR PRN #28 tab 04/29/25 [Rx] Sennosides/Docusate Sodium [Senna Plus 8.6-50 mg Softgel] 1 each PO DAILY #20 capsule 04/29/25 [Rx] Follow up Appointment(s)/Referral(s): León Kay, SRINI [PHYSICIAN POWER HAIR CLIPPER] - 05/12/25 10:30 am [facility], [NON-STAFF] - 1 Week Patient Instructions/Handouts: Anterior Hip Replacement (GEN) Activity/Diet/Wound Care/Special Instructions: Orthopedic Discharge Instructions: 1. Wound care and infection precautions, keep incision dry and covered while showering, no lotions, creams, moisturizers. No soaking, pools, hot tubs. Do not scrub over incision. 2. Weight-bear as tolerated with walker / cane until follow-up. 3. Ice and elevate when necessary. Do not exceed 20 minutes per hour with ice pack. 4. Utilize compression sleeve until seen at first follow up appointment. 5. Pain meds and anticoagulants per prescription. 6. Pain medication has potential to cause constipation. Increase oral fluid and fiber intake. Contact primary care provider if you have not had a bowel movement within 48 hours after discharge. 7. No anti-inflammatory medication until discussed at first post operative visit, this including Motrin, Aleve, Mobic, Diclofenac. 8. Follow up in office at 2 weeks postop with Rey Arguello PA-C / León Kay PA-C 9. Follow up with your primary care doctor 7-10 days after discharge. 10. Contact [facility] with any questions, . Keep incision clean, dry, intact. While showering, cover fusion tape with Saran wrap. Keep fusion tape on until follow-up appointment in office in 2 weeks. PATIENT HAS HOME MEDS IN [place] Discharge Disposition: HOME WITH HOME HEALTH SERVICES
--- NOTE | 2025-04-29 12:32 | P.PN ---
Subjective Progress Note Date: 04/29/25 Principal diagnosis: Left hip osteoarthritis Patient was seen at bedside this morning just working with therapy. Patient says she is getting around the room a lot better today than she was yesterday. She says she is looking forward to going home today. She says she does not have ongoing, however, patient says she has been passing gas. She says her pain is under better control today. Patient denies any other issues at this time. Objective - Vital Signs Vital signs: Vital Signs Temp 98.2 F 04/29/25 07:38 Pulse 83 04/29/25 07:38 Resp 16 04/29/25 07:38 BP 114/67 04/29/25 07:38 Pulse Ox 98 04/29/25 07:38 FiO2 Intake & Output 04/28/25 04/29/25 04/29/25 18:59 06:59 18:59 Weight 51.9 kg Other: Voiding Method Toilet # Voids 3 3 - Exam Left hip: Incision is clean, dry, and intact. The exofin fusion tape is in good condition. There is minimal soft tissue swelling and ecchymosis surrounding the medial and lateral aspects of the incision. Calf is soft, no tenderness with palpation. Plantar flexion, dorsiflexion, EHL, FHL are intact. Sensory exam to light touch throughout the extremity is intact, dorsal pedis pulses 2+. - Labs CBC & Chem 7: 04/28/25 03:39 Assessment and Plan Assessment: 1. Left hip osteoarthritis -Postop day 2 status post direct anterior left total hip arthroplasty Plan: 1. Left hip osteoarthritis -direct anterior left total hip arthroplasty performed 04/27/2025. Patient stable at bedside this morning with postoperative dressing in place over left hip. Incision appears to be clean, dry, intact. Negative for any drainage. Continue with [place] for pain. W eightbearing as tolerated with walker. PT/OT daily. Discharge home today with health services. 2. Appreciate medical management 3. Pain management -[place] 4. DVT prophylaxis -Xarelto in hospital; Eliquis 2.5 mg BID x 2 weeks once home 5. GI prophylaxis - senna 6. PT/OT -weightbearing as tolerated with walker 7. Encourage incentive spirometer use 8. Discharge planning - discharge home today with health services Time with Patient: Less than 30
--- NOTE | 2025-04-29 17:50 | PN ---
PROGRESS NOTE DATE OF SERVICE: 04/29/2025 SUBJECTIVE: This is a 54-year-old woman, was admitted after left total hip joint arthroplasty, is improving significantly. No chest pain. No palpitation. PHYSICAL EXAMINATION: VITAL SIGNS: Pulse is 83, blood pressure 120/60, and respirations 16. CHEST: Clear to auscultation. CARDIOVASCULAR: S1 and S2. ABDOMEN: Soft. LEGS: Status post surgery. LABORATORY DATA: Reviewed. ASSESSMENT: 1. Status post left total hip joint arthroplasty. 2. History of anxiety, depression, and panic disorder. 3. History of degenerative joint disease. 4. History of Hel[place] syndrome and hypotension. 5. Remote history of nicotine dependence. RECOMMENDATIONS AND DISCUSSION: Recommend to continue current management and continue symptomatic treatment. Resume all the home medications. Closely follow with primary physician. Otherwise, rest of the recommendations and DVT prophylaxis per Orthopedic Surgery. Further recommendations to follow. MMODL / IJN: [id number] /
== END 2025-04-29 14:40 | disposition home health service (06) ==
LOC: OR 05:41 → 4SSUR 09:18 → OR 04-29 14:40
PROVIDERS: ATTEND Orthopaedic Surgery
DX: M16.12 Unilateral primary osteoarthritis, left hip (principal); I10 Essential (primary) hypertension; F41.9 Anxiety disorder, unspecified; F32.A Depression, unspecified; E03.9 Hypothyroidism, unspecified; Z87.891 Personal history of nicotine dependence; Z90.49 Acquired absence of other specified parts of digestive tract; Z80.3 Family history of malignant neoplasm of breast; Z91.030 Bee allergy status; Z79.890 Hormone replacement therapy; Z79.01 Long term (current) use of anticoagulants; Z79.899 Other long term (current) drug therapy
CPT/HCPCS: 97161; 97166; 64473; 85025; 73501; 27130; C1776; J2250; J1100; J0690 ×2; J2405; J3010; J1171 ×3

== ENCOUNTER → 2025-06-18 | Outpatient (CLI) | payer OTHER ==
--- NOTE | 2025-06-18 21:27 | MR ---
EXAMINATION TYPE: MR cervical spine wo con DATE OF EXAM: 06/18/2025 9:12 PM COMPARISON: None. CLINICAL INDICATION: Female, 55 years old with history of M54.2 CERVICALGIA, neck pain that radiates into shoulders, numbness in both arms and hands for 3-5 years. TECHNIQUE: Multiplanar multiecho imaging on a 3.0 Laila magnet is performed through the cervical spin e. IV Contrast: mL (None, if empty) FINDINGS: The craniovertebral junction is normal. Vertebral body alignment of cervical kyphosis cent ered at C4. There is a grade 1 to grade 2 spondylolisthesis of C3 anteriorly on C4 4. Some minimal re trolisthesis of C5 on C6 may be present. There is disc space narrowing at C5-C6. Remaining disc heigh ts appear preserved. Vertebral body heights are preserved. Cord signal appears normal. C7-T1: Right paracentral disc bulge with mild anterior thecal sac compression. No cord contact 7. No spinal canal stenosis is present. Bilateral foraminal stenosis is present.. C6-7: Broad-based disc bulge has mild anterior thecal sac compression. No cord contact or spinal pb l stenosis is present. Left foraminal narrowing is present.. C5-6: Endplate spurring is mild anterior thecal sac flattening. No cord contact or spinal canal steno sis is present. Neural foramen are patent. C4-5: No focal disc herniation or significant disc bulge is evident. No spinal canal stenosis or yovanny ral foraminal stenosis is present. C3-4: Some mild central disc bulge is present with mild anterior thecal sac compression. This comes i n close approximation spinal cord. No spinal canal stenosis present. Neural foramen are patent.. C2-3: Small central disc bulge is present with mild anterior thecal sac compression. No spinal canal stenosis or cord contact is evident.. IMPRESSION: 1. Cervical kyphosis centered at C5. 2. Grade 1 to spondylolisthesis of C3 anteriorly on C4. 3. Minimal retrolisthesis of C5 on C6 may be present. 4. Lower spinal canal foraminal stenosis appears greatest at C7-T1 [facility], Workstation: [facility], 06/18/2025 9:25 PM
== END | disposition home or self-care (01) ==
LOC: RADMRIMAIN 20:30
PROVIDERS: ATTEND Orthopaedic Surgery
DX: M43.12 Spondylolisthesis, cervical region (principal); M48.02 Spinal stenosis, cervical region; M40.202 Unspecified kyphosis, cervical region
CPT/HCPCS: 72141